=== PATIENT | male | born 1940 | race Caucasian/White ===

== ENCOUNTER → 2017-12-17 01:43 | Outpatient (CLI) | payer MEDICARE, MEDICAID, SELFPAY ==
--- NOTE | 2017-12-17 12:17 | DI.REPORT_ITS ---
SYMPTOM/DIAGNOSIS: R/U ABNL 10/29 CXR, ASSESS RESOLUTION LLL PNA, PLEURAL EFFUSION ? RESOLVED. J18.1 PA AND LATERAL CHEST: Comparison is made with 26 December 2017. The heart is enlarged, unchanged. The aorta is mildly tortuous. There are old right rib fractures. The previously noted left lower lobe infiltrate and left pleural effusion have resolved. No new abnormalities are seen. IMPRESSION: Interval resolution of left pleural effusion and left lower lobe infiltrate.
== END ==
PROVIDERS: PCP Nurse Practitioner; Visit Provider Nurse Practitioner Adult Health
DX: J18.1 Lobar pneumonia, unspecified organism (principal)
CPT/HCPCS: 71046

== ENCOUNTER 2018-01-01 03:22 | Outpatient (CLI) | payer MEDICARE, MEDICAID, SELFPAY | END 2018-01-01 03:42 | PROVIDERS: PCP Nurse Practitioner; Visit Provider Student in an Organized Health Care Education/Training Program | DX: I48.91 Unspecified atrial fibrillation (principal) ==

== ENCOUNTER 2018-03-19 02:08 | Outpatient (CLI) | payer MEDICARE, MEDICAID, SELFPAY | END 2018-03-19 02:28 | PROVIDERS: PCP Nurse Practitioner; Visit Provider Student in an Organized Health Care Education/Training Program | DX: I48.91 Unspecified atrial fibrillation (principal); J98.4 Other disorders of lung ==

== ENCOUNTER 2018-03-19 02:08 | Outpatient (CLI) | payer MEDICARE, MEDICAID, SELFPAY ==
--- NOTE | 2018-03-19 | PFT_ITS ---
PULMONARY FUNCTION TEST REPORT Patient identification - Moe Barahona DATE OF - 42 DATE OF SERVICE - 03/19/2018 REQUESTING PROVIDER Jose Soni M.D. INTERPRETATION OF STUDY Spirometry shows no evidence of obstructive airways disease. No bronchodilator response. LUNG VOLUMES - Lung volumes show mild restriction. DIFFUSION CAPACITY- Moderately reduced, which is normal when corrected to alveolar volume. AIRWAY RESISTANCE - Normal. IMPRESSION Mild restrictive lung disease associated with moderately severe diffusion defect. Clinical correlation recommended. Underlying interstitial lung disease based on the constellation of these findings is suspected. Lilliam Hinton M.D. RAMÍREZ/vinny T - 03/29/2019
[2018-03-19] MEDS: Inhaler, Assist Device 1 EACH MC (13:38)
[2018-03-19] MEDS: Albuterol HFA 18 GM 200 PUFF INH IH (13:38)
== END 2018-03-19 02:28 ==
PROVIDERS: PCP Nurse Practitioner; Visit Provider Student in an Organized Health Care Education/Training Program
DX: J98.4 Other disorders of lung (principal); I48.91 Unspecified atrial fibrillation
CPT/HCPCS: 94060; 94150; 94726; 94729; 93005; 93010

== ENCOUNTER → 2018-04-03 10:52 | Outpatient (BNVA) | payer MEDICARE, MEDICAID, SELFPAY | PROVIDERS: PCP Nurse Practitioner; Visit Provider Student in an Organized Health Care Education/Training Program | DX: R69 Illness, unspecified (principal) ==

== ENCOUNTER 2018-04-03 12:04 | Outpatient (CLI) | payer MEDICARE, MEDICAID, SELFPAY ==
[2018-04-03 12:35] LABS: Abs Immature Grans 0.01 k/cumm (0.0-0.09); Absolute Basophil Count 0.09 k/cumm (0.0-0.2); Absolute Eosinophil Count 0.16 k/cumm (0.0-0.7); Absolute Lymphocyte Count 0.83 k/cumm (1.2-3.4); Absolute Monocyte Count 0.74 k/cumm (0.11-0.7); Absolute Neutrophil Count 3.45 k/cumm (1.2-6.7); Basophils % 1.7; HCT 22.7 % (40.0-50.0); Immature Grans % 0.2; Lymphocytes % 15.7; Mean Corp. HGB Concentration 28.2 g/dL (32.0-36.0); Mean Corpuscular Hemoglobin 18.9 pg (27.0-33.0); Mean Platelet Volume 9.3 fL (8.0-11.0); Neutrophils % 65.4; RBC 3.39 m/cumm (4.50-6.00); RBC Distribution Width 16.3 % (11.8-14.1); White Blood Cell Count 5.28 k/cumm (4.4-10.8)
[2018-04-03 12:56] LABS: HGB 6.4 g/dL (13.5-17.5)
[2018-04-03 13:02] LABS: Diff Comment RBC Morph Reviewed; Platelet Count 277 x1000/uL (130-400)
[2018-04-03 13:03] LABS: Hypochromasia 3+; Microcytosis 3+; Poikilocytes 2+
[2018-04-03 13:27] LABS: ALT 41 U/L (12-78); AST 26 U/L (15-37); Albumin 3.6 g/dL (3.4-5.0); Alkaline Phosphatase 95 U/L (46-116); BUN 21 mg/dL (7-18); Bilirubin, Direct 0.06 mg/dL (0.00-0.20); Bilirubin, Total 0.3 mg/dL (0.2-1.0); CREATININE 1.68 mg/dL (0.70-1.30); Calcium 8.3 mg/dL (8.5-10.1); Chloride 102 mmol/L (98-107); Estimated GFR 39.92 (mL/min/1.73m2); Glucose 99 mg/dL (70-100); Potassium 4.1 mmol/L (3.5-5.1); Sodium 138 mmol/L (136-145); TSH (W/Ref FT4) 2.13 uIU/mL (0.358-3.74); Total Protein 6.8 g/dL (6.4-8.2)
[2018-04-03 13:44] LABS: Iron 8 ug/dL (50-175); Total Iron Binding Capacity 496 ug/dL (250-450); Transferrin Sat 2 % (20-55)
[2018-04-03 13:57] LABS: Ferritin 6 ng/mL (8-388)
== END 2018-04-03 12:24 ==
PROVIDERS: PCP Nurse Practitioner; Visit Provider Student in an Organized Health Care Education/Training Program
DX: I48.1 Persistent atrial fibrillation (principal); I42.9 Cardiomyopathy, unspecified; Z79.899 Other long term (current) drug therapy; R19.5 Other fecal abnormalities; D64.9 Anemia, unspecified; Z79.01 Long term (current) use of anticoagulants
CPT/HCPCS: 36415; 80048; 80076; 99214; 82728; 83540; 83550; 83735; 84443; 85025

== ENCOUNTER 2018-04-04 02:36 | Outpatient (RCR) | payer MEDICARE, MEDICAID, SELFPAY ==
[2018-04-04] VITALS (8 sets, daily range): BP systolic 127–153; BP diastolic 56–67; PULSE 61–64; RESP 14–18; TEMP 36.3–36.6; O2SAT 95–98
[2018-04-04] MEDS: Normal Saline Flush 10 ML SYR IVP (10:25)
== END 2018-04-29 23:59 | disposition home or self-care (01) ==
LOC: INF 02:36
PROVIDERS: PCP Nurse Practitioner; Visit Provider Nurse Practitioner
DX: D64.9 Anemia, unspecified (principal)
CPT/HCPCS: 36415; 36430; 86850; 86900; 86901; 86920; P9016

== ENCOUNTER 2018-04-05 13:00 | Outpatient (CLI) | payer MEDICARE, MEDICAID, SELFPAY | END 2018-04-05 13:20 | PROVIDERS: PCP Nurse Practitioner; Visit Provider Physical Therapy Assistant | DX: K92.2 Gastrointestinal hemorrhage, unspecified (principal); Z79.01 Long term (current) use of anticoagulants | CPT/HCPCS: 99213 ==

== ENCOUNTER → 2018-05-16 09:57 | Outpatient (BNVA) | payer MEDICARE, MEDICAID, SELFPAY | PROVIDERS: PCP Nurse Practitioner; Referring Provider Nurse Practitioner; Visit Provider Nurse Practitioner Gerontology | DX: R35.1 Nocturia (principal); R39.9 Unspecified symptoms and signs involving the genitourinary system | CPT/HCPCS: 51798; 99214 ==

== ENCOUNTER 2018-05-16 11:01 | Outpatient (CLI) | payer MEDICARE, MEDICAID, SELFPAY ==
[2018-05-17 10:38] LABS: PSA, Screening 0.3 ng/ml (0-6.5)
== END 2018-05-16 11:21 ==
PROVIDERS: PCP Nurse Practitioner; Visit Provider Nurse Practitioner Gerontology
DX: R39.9 Unspecified symptoms and signs involving the genitourinary system (principal)
CPT/HCPCS: 36415; 84153

== ENCOUNTER 2018-06-12 13:06 | Outpatient (CLI) | payer MEDICARE, MEDICAID, SELFPAY ==
[2018-06-12 13:39] LABS: HCT 26.4 % (40.0-50.0); HGB 7.6 g/dL (13.5-17.5); Mean Corp. HGB Concentration 28.8 g/dL (32.0-36.0); Mean Corpuscular Hemoglobin 20.1 pg (27.0-33.0); Mean Corpuscular Volume 69.8 fL (80-95); Mean Platelet Volume 9.2 fL (8.0-11.0); Platelet Count 245 x1000/uL (130-400); RBC 3.78 m/cumm (4.50-6.00); RBC Distribution Width 21.4 % (11.8-14.1); White Blood Cell Count 3.38 k/cumm (4.4-10.8)
[2018-06-12 13:55] LABS: Hemoglobin A1C 5.6 % (4.5-6.2)
[2018-06-12 14:31] LABS: ESR 24 MM/HR (1-20)
[2018-06-12 14:32] LABS: Iron 12 ug/dL (50-175); Total Iron Binding Capacity 422 ug/dL (250-450)
[2018-06-12 14:59] LABS: Anion Gap 9.1 mmol/L (3-11); BUN 12 mg/dL (7-18); CO2 28.9 mmol/L (21.0-32.0); CREATININE 1.24 mg/dL (0.70-1.30); Calcium 8.3 mg/dL (8.5-10.1); Chloride 103 mmol/L (98-107); Estimated GFR 56.68 (mL/min/1.73m2); Ferritin 9 ng/mL (8-388); Glucose 103 mg/dL (70-100); Potassium 3.8 mmol/L (3.5-5.1); Sodium 141 mmol/L (136-145); TSH (W/Ref FT4) 2.06 uIU/mL (0.358-3.74); Vitamin B12 374 pg/mL (193-986)
[2018-06-14 13:36] LABS: ANA Interpretation Positive (NEGAT); ANA Titer Pattern SEE COMMENTS
== END 2018-06-12 13:26 ==
PROVIDERS: PCP Nurse Practitioner; Visit Provider Nurse Practitioner
DX: D64.9 Anemia, unspecified (principal); E61.1 Iron deficiency; E11.9 Type 2 diabetes mellitus without complications; R20.0 Anesthesia of skin; I10 Essential (primary) hypertension
CPT/HCPCS: 36415; 80048; 85027; 85652; 82607; 82728; 83036; 83540; 83550; 84443; 86038

== ENCOUNTER → 2018-07-15 10:31 | Outpatient (BNVA) | payer MEDICARE, MEDICAID, SELFPAY | PROVIDERS: PCP Nurse Practitioner; Visit Provider Nurse Practitioner Gerontology | DX: N40.1 Benign prostatic hyperplasia with lower urinary tract symptoms (principal); R35.1 Nocturia | CPT/HCPCS: 51798; 99213 ==

== ENCOUNTER 2018-10-23 08:45 | Outpatient (CLI) | payer MEDICARE, MEDICAID, SELFPAY | END 2018-10-23 09:05 | PROVIDERS: PCP Nurse Practitioner; Visit Provider Student in an Organized Health Care Education/Training Program | DX: I48.1 Persistent atrial fibrillation (principal); I42.8 Other cardiomyopathies; I10 Essential (primary) hypertension; D50.9 Iron deficiency anemia, unspecified | CPT/HCPCS: 99215; 93005; 93010 ==

== ENCOUNTER 2018-11-19 12:02 | Outpatient (CLI) | payer MEDICARE, MEDICAID, SELFPAY ==
[2018-11-19 12:36] LABS: HCT 35.2 % (40.0-50.0); HGB 10.9 g/dL (13.5-17.5); Mean Corpuscular Volume 74.4 fL (80-95); Platelet Count 248 x1000/uL (130-400); RBC 4.73 m/cumm (4.50-6.00); RBC Distribution Width 24.3 % (11.8-14.1); White Blood Cell Count 4.18 k/cumm (4.4-10.8)
[2018-11-19 13:28] LABS: ALT 131 U/L (12-78); AST 79 U/L (15-37); Albumin 3.7 g/dL (3.4-5.0); Alkaline Phosphatase 107 U/L (46-116); Anion Gap 11.6 mmol/L (3-11); BUN 11 mg/dL (7-18); Bilirubin, Total 0.6 mg/dL (0.2-1.0); CO2 25.4 mmol/L (21.0-32.0); CREATININE 1.01 mg/dL (0.70-1.30); Calcium 8.5 mg/dL (8.5-10.1); Chloride 103 mmol/L (98-107); Glucose 93 mg/dL (70-100); Potassium 3.7 mmol/L (3.5-5.1); Sodium 140 mmol/L (136-145); Total Protein 6.5 g/dL (6.4-8.2)
== END 2018-11-19 12:22 ==
PROVIDERS: PCP Nurse Practitioner; Visit Provider Nurse Practitioner
DX: D64.9 Anemia, unspecified (principal); I48.91 Unspecified atrial fibrillation
CPT/HCPCS: 36415; 80053; 85027

== ENCOUNTER 2018-12-16 09:07 | Outpatient (CLI) | payer MEDICARE, MEDICAID, SELFPAY ==
[2018-12-16 09:43] LABS: Abs Immature Grans 0.02 k/cumm (0.0-0.09); Absolute Basophil Count 0.03 k/cumm (0.0-0.2); Absolute Eosinophil Count 0.12 k/cumm (0.0-0.7); Absolute Lymphocyte Count 0.77 k/cumm (1.2-3.4); Absolute Monocyte Count 0.48 k/cumm (0.11-0.7); Absolute Neutrophil Count 3.23 k/cumm (1.2-6.7); Basophils % 0.6; Eosinophils % 2.6; HCT 38.3 % (40.0-50.0); HGB 11.9 g/dL (13.5-17.5); Immature Grans % 0.4; Lymphocytes % 16.6; Mean Corp. HGB Concentration 31.1 g/dL (32.0-36.0); Mean Corpuscular Hemoglobin 24.8 pg (27.0-33.0); Mean Corpuscular Volume 79.8 fL (80-95); Mean Platelet Volume 9.3 fL (8.0-11.0); Monocytes % 10.3; Neutrophils % 69.5; Platelet Count 237 x1000/uL (130-400); RBC Distribution Width 24.2 % (11.8-14.1); White Blood Cell Count 4.65 k/cumm (4.4-10.8)
[2018-12-16 10:02] LABS: Diff Comment RBC Morph Reviewed
[2018-12-16 10:03] LABS: Anisocytosis 3+; Hypochromasia 1+; Macrocytosis 1+; Microcytosis 1+; Ovalocytes 2+
[2018-12-16 10:40] LABS: ALT 108 U/L (12-78); AST 76 U/L (15-37); Albumin 3.6 g/dL (3.4-5.0); Alkaline Phosphatase 103 U/L (46-116); Anion Gap 12.3 mmol/L (3-11); BUN 14 mg/dL (7-18); Bilirubin, Total 0.4 mg/dL (0.2-1.0); CO2 24.7 mmol/L (21.0-32.0); CREATININE 1.31 mg/dL (0.70-1.30); Calcium 8.5 mg/dL (8.5-10.1); Chloride 105 mmol/L (98-107); Estimated GFR 53.06 (mL/min/1.73m2); Glucose 95 mg/dL (70-100); Sodium 142 mmol/L (136-145); Total Protein 6.7 g/dL (6.4-8.2)
[2018-12-16 10:41] LABS: ALT 105 U/L (12-78); AST 76 U/L (15-37); Albumin 3.6 g/dL (3.4-5.0); Alkaline Phosphatase 106 U/L (46-116); Bilirubin, Direct 0.13 mg/dL (0.00-0.20); Bilirubin, Total 0.4 mg/dL (0.2-1.0); Total Protein 6.6 g/dL (6.4-8.2)
[2018-12-17 11:18] LABS: Hepatitis A Antibody IgM Negative (NEGAT); Hepatitis B Core Antibody Positive (NEGAT); Hepatitis B surface Ag Negative (NEGAT); Hepatitis C Ab w Rflx HCV PCR Negative (NEGAT)
[2018-12-19 08:18] LABS: HBc IgM Ab, S Negative
== END 2018-12-16 09:27 ==
PROVIDERS: PCP Nurse Practitioner; Visit Provider Internal Medicine Cardiovascular Disease
DX: I48.0 Paroxysmal atrial fibrillation (principal); R94.5 Abnormal results of liver function studies
CPT/HCPCS: 36415; 80053; 80076; 86704; 86709; 86803; 87340; 85025; 86705

== ENCOUNTER 2019-01-09 00:57 | Outpatient (CLI) | payer MEDICARE, MEDICAID, SELFPAY ==
--- NOTE | 2019-01-09 07:15 | DI.US_ITS ---
SYMPTOM/DIAGNOSIS: ELEVATED LFT'S R94.5 ABDOMINAL ULTRASOUND: 01/09 The visualized liver parenchyma is normal in appearance with an incidental 21 mm in diameter simple cyst of the left lobe. There is no evidence of cholelithiasis or biliary dilatation. The pancreas is not well visualized but grossly unremarkable. Kidneys are grossly normal in size and shape. There is question of right renal cortical atrophy. Spleen is unremarkable in appearance. Abdominal aorta is at the upper limits of normal in diameter at 2.7 cm proximally. CONCLUSION: No evidence of cholelithiasis. Question right renal cortical atrophy.
== END 2019-01-09 01:17 ==
PROVIDERS: PCP Nurse Practitioner; Visit Provider Nurse Practitioner
DX: R94.5 Abnormal results of liver function studies (principal); K76.89 Other specified diseases of liver
CPT/HCPCS: 76700

== ENCOUNTER 2019-04-25 12:12 | Emergency (ER) | payer MEDICARE, MEDICAID, SELFPAY ==
[2019-04-25 12:36] VITALS: BP 164/78; PULSE 70; RESP 16; TEMP 36.7; O2SAT 96
--- NOTE | 2019-04-25 12:57 | ED.GENADUL_ITS ---
Discharge Plan Disposition Patient Disposition: HOME Condition: Improving Discharge Details Chief Complaint: GenMedical Clinical Impression: Fall at home, Contusion of face, Closed head injury, Chest wall contusion Primary Care Provider: Stefanie Hoffman ED Provider: Gifty Pelaez Home Meds and New Rx's Prescriptions: New tramadol 50 mg tablet 50 mg PO Q6H PRN (Reason: pain) Qty: 10 RF: 0 Continued omeprazole 20 mg capsule,delayed release(DR/EC) 20 mg PO BID Qty: 120 RF: 6 amiodarone 200 mg tablet 200 mg PO DAILY Qty: 90 RF: 3 Eliquis 5 mg tablet 5 mg PO DAILY RF: 0 Discharge Instructions Instructions: Head Injury (ED), Contusion in Adults (ED), Rib Contusion (ED) Additional Instructions: Use the incentive spirometer several times an hour to help with taking deep breaths to prevent the development of pneumonia. Take Tylenol as needed directed for pain. Take the tramadol for pain not relieved with Tylenol. You can also purchase [id number] lidocaine patches that you can apply to the area of pain to use as needed and directed. Follow-up with your primary care doctor within the next week for reevaluation. Return to the emergency department if you develop any worsening or new concerning symptoms. Discharge Data Discharge Date/Time-TO BE ENTERED AT DEPARTURE: 04/25/19 16:34 Discharge Physician: Gifty Pelaez Medical Decision Making 78-year-old male presents for left facial pain and left chest pain worse with movement and deep breath after mechanical fall onto frozen dirt. Denies LOC or vomiting. Patient has an area of ecchymosis around edge of left periorbital region but no open wounds. He has tenderness to palpation of his left anterior chest but without crepitus, open wounds, or evidence of trauma. Lungs clear bilaterally. No other evidence of head trauma. No spinal tenderness. Abdomen soft and nontender. Moving all extremities. Patient referred for CT head, cervical spine and facial bones as well as left ribs and PA chest x-ray which were negative. Patient was given Tylenol and had Lidoderm patch placed and admitted to relief of pain and was requesting to go home. He was given an incentive spirometer. He was advised to take Tylenol as needed and directed for pain. Given prescription for tramadol to take as needed. Advised to follow up with the primary care doctor for re-evaluation. Usual and customary return precautions given prior to discharge. Medical Records Medical records reviewed: Yes I reviewed the patient's medical records. Imaging Data Radiologic Study: Radiologist's impression: CT HEAD CERV SPINE FACIAL WO CLINICAL HISTORY: L periorbital contusion, r/o fracture TECHNIQUE: COMPARISON: No exams were available for comparison FINDINGS: Noncontrast cranial CT was performed. There is moderate generalized cerebral atrophy and there are areas of patchy decreased attenuation periventricular white matter bilaterally consistent with microvascular ischemic changes. No evidence of acute intracranial hemorrhage mass effect or midline shift. The orbital and temporal bone structures appear intact. Multi slice imaging facial bones was performed. Paranasal sinuses are well aerated. Orbital structures are normal. No facial fracture seen. Old healed nasal fracture noted. Multi slice CT of the cervical spine was performed. Images obtained through the lung apices are unremarkable. Visualized tracheolaryngeal structures appear normal. There are marked degenerative changes of the cervical spine. There is no evidence of acute fracture or dislocation. IMPRESSION: No evidence of acute intracranial injury. No evidence of acute cervical spine injury. No evidence of acute facial fracture. XR RIBS LT W PA LAT CHEST CLINICAL HISTORY: Pain L anterior ribs s/p fall, r/o fracture TECHNIQUE: COMPARISON: CHEST 2 VIEWS PA,LAT from 12/17/2017 FINDINGS: PA and lateral views of the chest and 2 additional views of the left ribs were obtained. There appear to be old healed right rib fractures. No acute fracture identified either in left or right ribs. Cardiac size is at the upper limits of normal. Lungs are clear. There is pleural blunting posteriorly which could represent scarring or small pleural effusions. IMPRESSION: Question small bilateral pleural effusions. No gross rib fracture identified by plain film criteria. Lab Data Lab results reviewed: Yes I reviewed the patient's lab results. HPI General Mode of arrival: ambulatory . Date/Time Provider Initiated Documentation: 04/25/19 12:54 . Limitations to Documentation: no limitations . Information obtained by: patient . History of Present Illness 78 year old M presents to the emergency department with the chief complaint of Fall with facial and chest pain, and is localized to the face and back. Patient reports no radiation. Patient started experiencing this day(s) (2) and it has been constant. No relieving factors improve symptom(s), Other factors that worsen symptoms (Chest pain worse with deep breath, movement or palpation) . Patient notes denies confusion, fever/chills, headaches, loss of appetite, rash, seizure, shortness of breath, syncope and weakness. Patient did receive the following treatments prior to arrival, none Related Data Home Medications Medication Instructions Recorded Confirmed omeprazole 20 mg capsule,delayed 20 mg PO BID #120 cap 06/12/18 04/25/19 release amiodarone 200 mg tablet 200 mg PO DAILY #90 tab-cap 04/15/19 04/25/19 Eliquis 5 mg PO DAILY 04/25/19 04/25/19 tramadol 50 mg PO Q6H PRN #10 tab 04/25/19 Previous Rx's Medication Instructions Recorded omeprazole 20 mg capsule,delayed 20 mg PO BID #120 cap 06/12/18 release amiodarone 200 mg tablet 200 mg PO DAILY #90 tab-cap 04/15/19 tramadol 50 mg PO Q6H PRN #10 tab 04/25/19 Allergies Allergy/AdvReac Type Severity Reaction Status Date / Time No Known Drug Allergies Allergy Verified 04/25/19 13:05 General Stated Complaint: GenMedical RACHELLE: 3 Review of Systems All systems reviewed & are unremarkable except as noted in HPI and below Constitutional Constitutional: Reports as per HPI, Denies chills and Denies fever(s) Eyes Eyes: Denies blurry vision ENT Ears, Nose, Mouth, and Throat: Denies dizziness, Denies sore throat and Denies throat swelling Cardiovascular Cardiovascular: Denies chest pain and Denies dyspnea Respiratory Respiratory: Denies cough and Denies dyspnea Gastrointestinal Gastrointestinal: Denies abdominal pain, Denies diarrhea and Denies vomiting Genitourinary Genitourinary: Denies hematuria and Denies dysuria Musculoskeletal Musculoskeletal: Denies back pain and Denies numbness Integumentary/Breasts Skin/Breast: Denies lesions and Denies rash Neurologic Neurologic: Denies dizziness, Denies focal weakness and Denies numbness Allergic/Immunologic Allergic/Immunologic: Denies throat swelling PENDING SALE TO [facility] Medical History Atrial fibrillation Cardiomyopathy Chronic anticoagulation eliquis Helicobacter pylori gastritis Helicobacter pylori gastritis (Inactive 01/31/15) History of alcohol abuse Noncompliance with medication regimen (Inactive 05/19/15) ALBERTO (obstructive sleep apnea) Personal history of tobacco use (Inactive 05/20/15) none since Jan 2015 Daily cigars Poor compliance with CPAP treatment (Acute) Poor dentition Poor dentition (Inactive 12/30/15) Tobacco abuse Surgical History Colonoscopy - IV Sedation (02/08/15) w/ BX Dr. Lee sigmoid diverticulosis, Final Path Diagnosis: Inflammatory polyp Colonoscopy - MAC (09/12/17) EGD - IV Sedation (01/31/15) Dr Lee Final Pathologic Diagnosis: Gastric Antrum stomach biopsy -Gastric antral mucosa with H. Pylori gastritis and focal intestianl metaplasia -H. Pylori seen on HE stain Gastric body stomach biopsy -Gastric body mucosa with H. Pylori gastritis -H. Pylori seen on HE stain Addendum to above path diagnosis: Biopsy Esophagus - Gastric fundic type mucosa with active erosive gastritis. EGD - MAC (09/12/17) 05/27/18 Colonoscopy- multiple diverticula, internal hemorrhoids, 2-sessile polyps in ascending colon3-5mm size, diverticulosis in the entire examined colon H/O endoscopy (Acute) History of endoscopy (Acute 05/28/18) 05/27/18 Upper GI-medium sized hiatal hernia present at 35-40cm, normal esophagus, Irregular Z-line at 35 cm from incisors, normal stomach and duodenum 05/28/18-video capsule [id number] duodenum,jejunum,and ileum. hx previous rib fxs Repair of inguinal hernia right; years ago rib fx (11/22/08) small bowel enteroscopy (03/22/15) [facility] Dr. Champagne Family History Mother No problems noted. Father Personal history of malignant neoplasm Sister Parkinson disease Sister No problems noted. Sister No problems noted. Brother Personal history of malignant neoplasm Brother No problems noted. Social History Smoking/Tobacco Use Status: Former Tobacco Use Alcohol Intake: never Drug use: Never Substance use type: does not use Do you feel safe at home: Yes Do you feel safe in your relationship?: Yes Exam Const General: cooperative and healthy appearing Orientation: alert and awake [facility] Head: normal to inspection Ears: hearing grossly normal bilaterally, external ears normal and TM's normal bilaterally General nose exam: external nose normal Face and sinus: normal facial exam Face images: 1. Patchy ecchymosis noted around edge of periorbital region. No edema, erythema, open wounds. Mouth: oral mucosae normal Teeth and gingiva: dentition normal Throat: posterior oropharynx normal Eyes General: appearance normal, both eyes and all related structures Eyelids: eyelids normal Pupils: PERRL EOM: EOM intact bilaterally Neck Neck: normal visual inspection Lymphatic: no lymphadenopathy noted Chest Chest: normal inspection of the chest Chest/axillae images: 1. Tenderness to palpation of left anterior chest. No crepitus, open wounds, edema, ecchymosis or erythema. Resp Effort & Inspection: normal respiratory effort and able to speak in complete sentences Auscultation: clear to auscultation bilaterally Cardio Rate: regular rate Rhythm: regular rhythm GI Inspection: normal to inspection Palpation: soft, not firm, no guarding, no hepatosplenomegaly, no masses and nontender Auscultation: normal bowel sounds Back/Spine/Pelvis Cervical Spine: No cervical spinal tenderness Thoracic/Lumbar Spine: No thoracic spinal tenderness and No lumbar spinal tenderness Pelvis: no pain with anterior-posterior compression Skin General skin exam: no rashes or lesions noted Neuro General: alert, awake and oriented x3 Cranial Nerves: CN's II-XI intact bilaterally Cognition: normal cognition Speech: speech normal Gait: normal gait Motor: muscle tone normal throughout and strength 5/5 throughout Sensory Exam: no sensory deficits noted Extrem General: normal to inspection, full ROM and normal capillary refill Other: Moving all extremities without evidence of trauma, injury or pain. Psych Appearance: grossly normal Mental Status: mental status grossly normal Speech and Movement: speech and movement normal Affect: normal affect Thought Process: normal Course Vital Signs Vital signs: Vital Signs Temperature 98.1 F 04/25/19 12:36 Pulse 70 04/25/19 12:36 Respiratory Rate 16 04/25/19 12:36 Blood Pressure 164/78 H 04/25/19 12:36 Pulse Oximetry 96 04/25/19 12:36 Temperature 98.1 F 04/25/19 12:36 Temperature Source Skin 04/25/19 12:36 Pulse 70 04/25/19 12:36 Respiratory Rate 16 04/25/19 12:36 Blood Pressure 164/78 H 04/25/19 12:36 Blood Pressure Position Sitting 04/25/19 12:36 Pulse Oximetry 96 04/25/19 12:36 Oxygen Delivery Method Room Air 04/25/19 12:36 Oxygen Flow Rate 0 04/25/19 12:36 Pain Level 0 04/25/19 12:36 Comment 04/25/19 12:36
[2019-04-25 13:28] LABS: Abs Immature Grans 0.02 k/cumm (0.0-0.09); Absolute Basophil Count 0.04 k/cumm (0.0-0.2); Absolute Eosinophil Count 0.13 k/cumm (0.0-0.7); Absolute Lymphocyte Count 1.01 k/cumm (1.2-3.4); Absolute Monocyte Count 0.61 k/cumm (0.11-0.7); Basophils % 0.8; Eosinophils % 2.4; HCT 31.4 % (40.0-50.0); HGB 9.6 g/dL (13.5-17.5); Immature Grans % 0.4; Mean Corp. HGB Concentration 30.6 g/dL (32.0-36.0); Mean Corpuscular Hemoglobin 23.9 pg (27.0-33.0); Mean Corpuscular Volume 78.3 fL (80-95); Monocytes % 11.5; Neutrophils % 65.9; Platelet Count 229 x1000/uL (130-400); RBC 4.01 m/cumm (4.50-6.00); RBC Distribution Width 14.9 % (11.8-14.1); White Blood Cell Count 5.31 k/cumm (4.4-10.8)
[2019-04-25 13:41] LABS: Prothrombin Time 10.2 sec (9.3-11.0)
[2019-04-25 13:42] LABS: ALT 68 U/L (16-63); AST 60 U/L (15-37); Albumin 3.6 g/dL (3.4-5.0); Alkaline Phosphatase 99 U/L (46-116); BUN 11 mg/dL (7-18); Bilirubin, Total 0.5 mg/dL (0.2-1.0); CREATININE 1.06 mg/dL (0.70-1.30); Calcium 8.5 mg/dL (8.5-10.1); Chloride 101 mmol/L (98-107); Glucose 93 mg/dL (74-106); Potassium 4.1 mmol/L (3.5-5.1); Sodium 140 mmol/L (136-145)
[2019-04-25 13:44] LABS: Troponin I < 0.05 ng/Ml (<0.06)
[2019-04-25] MEDS: Acetaminophen 500 MG TAB 1000 MG PO (13:50)
[2019-04-25] MEDS: Lidocaine 5% Patch 1 PATCH TP (13:50)
--- NOTE | 2019-04-25 14:25 | DI.CT_ITS ---
EXAM: CT HEAD CERV SPINE FACIAL WO CLINICAL HISTORY: L periorbital contusion, r/o fracture TECHNIQUE: COMPARISON: No exams were available for comparison FINDINGS: Noncontrast cranial CT was performed. There is moderate generalized cerebral atrophy and there are a reas of patchy decreased attenuation periventricular white matter bilaterally consistent with microva scular ischemic changes. No evidence of acute intracranial hemorrhage mass effect or midline shift. The orbital and temporal bone structures appear intact. Multi slice imaging facial bones was performed. Paranasal sinuses are well aerated. Orbital structu res are normal. No facial fracture seen. Old healed nasal fracture noted. Multi slice CT of the cervical spine was performed. Images obtained through the lung apices are unre markable. Visualized tracheolaryngeal structures appear normal. There are marked degenerative ramon es of the cervical spine. There is no evidence of acute fracture or dislocation. IMPRESSION: No evidence of acute intracranial injury. No evidence of acute cervical spine injury. No evidence of acute facial fracture.
--- NOTE | 2019-04-25 14:29 | DI.RAD_ITS ---
EXAM: XR RIBS LT W PA LAT CHEST CLINICAL HISTORY: Pain L anterior ribs s/p fall, r/o fracture TECHNIQUE: COMPARISON: CHEST 2 VIEWS PA,LAT from 12/17/2017 FINDINGS: PA and lateral views of the chest and 2 additional views of the left ribs were obtained. There appea r to be old healed right rib fractures. No acute fracture identified either in left or right ribs. Cardiac size is at the upper limits of normal. Lungs are clear. There is pleural blunting posterior ly which could represent scarring or small pleural effusions. IMPRESSION: Question small bilateral pleural effusions. No gross rib fracture identified by plain film criteria.
[2019-04-25 14:53] VITALS: BP 180/82; PULSE 60; O2SAT 96
[2019-04-25 15:21] VITALS: BP 167/72; PULSE 60; RESP 18; TEMP 36.2; O2SAT 98
== END 2019-04-25 16:34 | disposition home or self-care (01) ==
PROVIDERS: Emergency Provider Physician Assistant; PCP Nurse Practitioner
DX: S09.90XA Unspecified injury of head, initial encounter (principal); S00.83XA Contusion of other part of head, initial encounter; S20.212A Contusion of left front wall of thorax, initial encounter; W00.0XXA Fall on same level due to ice and snow, initial encounter; Z79.01 Long term (current) use of anticoagulants; I48.91 Unspecified atrial fibrillation
CPT/HCPCS: 36415; 80053; 93005; 99285; 70450; 70486; 71046; 71100; 72125; 83735; 84484; 85025; 85610; 85730; 93010

== ENCOUNTER → 2019-05-09 10:45 | Outpatient (BNVA) | payer MEDICARE, MEDICAID, SELFPAY | PROVIDERS: PCP Nurse Practitioner; Referring Provider Nurse Practitioner; Visit Provider Internal Medicine Cardiovascular Disease | DX: I48.91 Unspecified atrial fibrillation (principal); Z79.01 Long term (current) use of anticoagulants; I42.9 Cardiomyopathy, unspecified; I10 Essential (primary) hypertension | CPT/HCPCS: 99204; 99215 ==

== ENCOUNTER → 2019-05-12 10:40 | Outpatient (BNVA) | payer MEDICARE, MEDICAID, SELFPAY | PROVIDERS: PCP Nurse Practitioner; Referring Provider Nurse Practitioner; Visit Provider Nurse Practitioner Gerontology | DX: N40.1 Benign prostatic hyperplasia with lower urinary tract symptoms (principal); N13.8 Other obstructive and reflux uropathy | CPT/HCPCS: 99213 ==

== ENCOUNTER 2019-05-22 08:15 | Outpatient (CLI) | payer MEDICARE, MEDICAID, SELFPAY ==
[2019-05-22 09:49] LABS: BUN 12 mg/dL (7-18); CREATININE 1.22 mg/dL (0.70-1.30); Calcium 8.5 mg/dL (8.5-10.1); Chloride 103 mmol/L (98-107); Glucose 92 mg/dL (74-106); Potassium 4.3 mmol/L (3.5-5.1); Sodium 140 mmol/L (136-145); TSH 2.42 uIU/mL (0.36-3.74)
== END 2019-05-22 08:35 ==
PROVIDERS: PCP Nurse Practitioner; Visit Provider Internal Medicine Cardiovascular Disease
DX: I48.91 Unspecified atrial fibrillation (principal); Z79.01 Long term (current) use of anticoagulants; I10 Essential (primary) hypertension
CPT/HCPCS: 36415; 80048; 84443

== ENCOUNTER 2019-07-03 15:00 | Outpatient (CLI) | payer MEDICARE, SELFPAY | END 2019-07-03 15:20 | PROVIDERS: PCP Nurse Practitioner; Visit Provider Nurse Practitioner | DX: R69 Illness, unspecified (principal) | CPT/HCPCS: 36415; 86850; 86900; 86901; 86920; 85014; 85018 ==

== ENCOUNTER 2019-07-11 04:36 | Outpatient (RCR) | payer MEDICARE, MEDICAID, SELFPAY ==
[2019-07-03 15:28] LABS: HCT 25.7 % (40.0-50.0); HGB 7.3 g/dL (13.5-17.5)
[2019-07-04] VITALS (7 sets, daily range): BP systolic 133–162; BP diastolic 65–74; PULSE 60–68; RESP 18–19; TEMP 36.4–36.7; O2SAT 96–99
[2019-07-10 14:46] LABS: HGB 8.2 g/dL (13.5-17.5)
[2019-07-11 09:22] VITALS: BP 125/67; PULSE 60; RESP 20; TEMP 36.7; O2SAT 97
[2019-07-11 09:55] VITALS: BP 134/71; BP 147/68; PULSE 59; PULSE 60; RESP 20; TEMP 36.4; TEMP 36.9; O2SAT 96
[2019-07-11 10:40] VITALS: BP 150/72; PULSE 52; RESP 20; TEMP 36.5; O2SAT 97
[2019-07-11 11:10] VITALS: BP 168/81; PULSE 61; RESP 20; TEMP 36.9; O2SAT 98
[2019-07-11] MEDS: Normal Saline Flush 10 ML SYR IVP (11:30)
[2019-07-11 11:40] VITALS: BP 172/85; PULSE 60; RESP 20; TEMP 37.9; O2SAT 98
[2019-07-11 11:58] VITALS: BP 177/81; PULSE 60; RESP 20; TEMP 37.9; O2SAT 98
== END 2019-07-29 23:59 | disposition home or self-care (01) ==
LOC: INF 04:36
PROVIDERS: PCP Nurse Practitioner; Visit Provider Nurse Practitioner
DX: D64.9 Anemia, unspecified (principal)
CPT/HCPCS: 36415; 36430; 86850; 86900; 86901; 86920; 85014; 85018; P9016

== ENCOUNTER 2019-08-20 01:13 | Outpatient (RCR) | payer MEDICARE, MEDICAID, SELFPAY ==
[2019-07-30] MEDS: IRON SUCROSE COMPLEX 200 MG in Normal Saline 100 ML 440 MG IVPB (13:02)
[2019-07-30] MEDS: Normal Saline Flush 10 ML SYR IVP (13:03)
[2019-07-30 13:05] LABS: Absolute Basophil Count 0.05 k/cumm (0.0-0.2); Absolute Eosinophil Count 0.12 k/cumm (0.0-0.7); Absolute Lymphocyte Count 1.06 k/cumm (1.2-3.4); Absolute Monocyte Count 0.67 k/cumm (0.11-0.7); Absolute Neutrophil Count 3.33 k/cumm (1.2-6.7); Eosinophils % 2.3; HCT 29.9 % (40.0-50.0); HGB 8.8 g/dL (13.5-17.5); Lymphocytes % 20.3; Mean Corp. HGB Concentration 29.4 g/dL (32.0-36.0); Mean Corpuscular Hemoglobin 21.9 pg (27.0-33.0); Mean Corpuscular Volume 74.4 fL (80-95); Mean Platelet Volume 9.8 fL (8.0-11.0); Monocytes % 12.8; Neutrophils % 63.6; Platelet Count 294 x1000/uL (130-400); RBC 4.02 m/cumm (4.50-6.00); RBC Distribution Width 20.3 % (11.8-14.1); White Blood Cell Count 5.23 k/cumm (4.4-10.8)
[2019-08-06] MEDS: Normal Saline Flush 10 ML SYR IVP (13:00)
[2019-08-06] MEDS: IRON SUCROSE COMPLEX 200 MG in Normal Saline 100 ML 400 MG IVPB (13:00)
[2019-08-06 13:12] LABS: Abs Immature Grans 0.01 k/cumm (0.0-0.09); Absolute Basophil Count 0.03 k/cumm (0.0-0.2); Absolute Eosinophil Count 0.13 k/cumm (0.0-0.7); Absolute Monocyte Count 0.49 k/cumm (0.11-0.7); Basophils % 0.6; Eosinophils % 2.5; HCT 32.2 % (40.0-50.0); HGB 9.9 g/dL (13.5-17.5); Immature Grans % 0.2 %; Lymphocytes % 17.1; Mean Corp. HGB Concentration 30.7 g/dL (32.0-36.0); Mean Corpuscular Hemoglobin 23.2 pg (27.0-33.0); Mean Corpuscular Volume 75.6 fL (80-95); Mean Platelet Volume 9.3 fL (8.0-11.0); Monocytes % 9.3; Neutrophils % 70.3; Platelet Count 286 x1000/uL (130-400); RBC 4.26 m/cumm (4.50-6.00); RBC Distribution Width 22.4 % (11.8-14.1); White Blood Cell Count 5.26 k/cumm (4.4-10.8)
[2019-08-06 13:34] LABS: Diff Comment RBC Morph Reviewed
[2019-08-06 13:35] LABS: Anisocytosis 2+; Hypochromasia 1+; Microcytosis 2+; Polychromasia Present
[2019-08-13] MEDS: IRON SUCROSE COMPLEX 200 MG in Normal Saline 100 ML 440 MG IVPB (14:07)
[2019-08-13] MEDS: Normal Saline Flush 10 ML SYR IVP (14:08)
[2019-08-13 14:22] LABS: Abs Immature Grans 0.02 k/cumm (0.0-0.09); Absolute Basophil Count 0.03 k/cumm (0.0-0.2); Absolute Monocyte Count 0.57 k/cumm (0.11-0.7); Absolute Neutrophil Count 3.84 k/cumm (1.2-6.7); Basophils % 0.6; Eosinophils % 1.9; HCT 32.4 % (40.0-50.0); HGB 9.9 g/dL (13.5-17.5); Immature Grans % 0.4 %; Lymphocytes % 14.9; Mean Corp. HGB Concentration 30.6 g/dL (32.0-36.0); Mean Corpuscular Hemoglobin 23.6 pg (27.0-33.0); Mean Corpuscular Volume 77.1 fL (80-95); Mean Platelet Volume 9.5 fL (8.0-11.0); Monocytes % 10.6; Neutrophils % 71.6; Platelet Count 237 x1000/uL (130-400); RBC Distribution Width 23.3 % (11.8-14.1); White Blood Cell Count 5.36 k/cumm (4.4-10.8)
[2019-08-13 14:40] LABS: Anisocytosis 3+; Diff Comment RBC Morph Reviewed; Hypochromasia 3+; Microcytosis 3+; Poikilocytes 1+; Polychromasia Present
[2019-08-20] MEDS: IRON SUCROSE COMPLEX 200 MG in Normal Saline 100 ML 440 MG IVPB (13:02)
[2019-08-20] MEDS: Normal Saline Flush 10 ML SYR IVP (13:10)
[2019-08-20 13:20] LABS: Abs Immature Grans 0.01 k/cumm (0.0-0.09); Absolute Basophil Count 0.03 k/cumm (0.0-0.2); Absolute Eosinophil Count 0.12 k/cumm (0.0-0.7); Absolute Lymphocyte Count 0.72 k/cumm (1.2-3.4); Absolute Monocyte Count 0.52 k/cumm (0.11-0.7); Absolute Neutrophil Count 2.87 k/cumm (1.2-6.7); Basophils % 0.7; Eosinophils % 2.8; HCT 32.6 % (40.0-50.0); HGB 10.1 g/dL (13.5-17.5); Immature Grans % 0.2 %; Lymphocytes % 16.9; Mean Corpuscular Volume 77.4 fL (80-95); Mean Platelet Volume 8.9 fL (8.0-11.0); Monocytes % 12.2; Neutrophils % 67.2; Platelet Count 240 x1000/uL (130-400); RBC 4.21 m/cumm (4.50-6.00); RBC Distribution Width 23.1 % (11.8-14.1); White Blood Cell Count 4.27 k/cumm (4.4-10.8)
[2019-08-20 14:03] LABS: Anisocytosis 2+; Diff Comment Agrees w/ Instrument; Hypochromasia 1+
[2019-08-20 14:04] LABS: Microcytosis 1+
== END 2019-08-28 23:59 | disposition home or self-care (01) ==
LOC: INF 01:13
PROVIDERS: PCP Nurse Practitioner; Visit Provider Internal Medicine
DX: D50.9 Iron deficiency anemia, unspecified (principal)
CPT/HCPCS: 36415; 86850; 86900; 86901; 96365; 85025; J1756

== ENCOUNTER 2019-09-17 00:51 | Outpatient (RCR) | payer MEDICARE, MEDICAID, SELFPAY ==
[2019-09-17 12:51] LABS: Abs Immature Grans 0.01 k/cumm (0.0-0.09); Absolute Basophil Count 0.03 k/cumm (0.0-0.2); Absolute Eosinophil Count 0.12 k/cumm (0.0-0.7); Absolute Lymphocyte Count 0.85 k/cumm (1.2-3.4); Absolute Monocyte Count 0.59 k/cumm (0.11-0.7); Absolute Neutrophil Count 3.53 k/cumm (1.2-6.7); Basophils % 0.6; Eosinophils % 2.3; HCT 36.1 % (40.0-50.0); HGB 11.7 g/dL (13.5-17.5); Immature Grans % 0.2 %; Lymphocytes % 16.6; Mean Corp. HGB Concentration 32.4 g/dL (32.0-36.0); Mean Corpuscular Hemoglobin 25.8 pg (27.0-33.0); Mean Corpuscular Volume 79.5 fL (80-95); Mean Platelet Volume 9.5 fL (8.0-11.0); Monocytes % 11.5; Neutrophils % 68.8; Platelet Count 216 x1000/uL (130-400); RBC 4.54 m/cumm (4.50-6.00); RBC Distribution Width 20.5 % (11.8-14.1); White Blood Cell Count 5.13 k/cumm (4.4-10.8)
[2019-09-17 13:14] LABS: Ferritin 48 ng/mL (26-388)
== END 2019-09-28 23:59 | disposition home or self-care (01) ==
LOC: INF 00:51
PROVIDERS: PCP Nurse Practitioner; Visit Provider Internal Medicine
DX: D50.9 Iron deficiency anemia, unspecified (principal)
CPT/HCPCS: 36415; 86900; 86901; 82728; 85025

== ENCOUNTER → 2019-10-30 09:42 | Outpatient (BNVA) | payer MEDICARE, MEDICAID, SELFPAY | PROVIDERS: PCP Nurse Practitioner; Referring Provider Nurse Practitioner; Visit Provider Nurse Practitioner Gerontology | DX: N40.1 Benign prostatic hyperplasia with lower urinary tract symptoms (principal); R35.1 Nocturia | CPT/HCPCS: 99213 ==

== ENCOUNTER → 2019-10-30 09:45 | Outpatient (BNVA) | payer MEDICARE, MEDICAID, SELFPAY | PROVIDERS: PCP Nurse Practitioner; Referring Provider Nurse Practitioner; Visit Provider Internal Medicine Cardiovascular Disease | DX: I42.8 Other cardiomyopathies (principal); I48.91 Unspecified atrial fibrillation; Z91.89 Other specified personal risk factors, not elsewhere classified; Z79.01 Long term (current) use of anticoagulants; I10 Essential (primary) hypertension; R60.0 Localized edema; Z79.899 Other long term (current) drug therapy | CPT/HCPCS: 99213; 99214 ==

== ENCOUNTER 2019-11-26 01:43 | Outpatient (CLI) | payer MEDICARE, MEDICAID, SELFPAY ==
--- NOTE | 2019-11-26 07:54 | DI.US_ITS ---
APPROVED REPORT EXAM: Comprehensive 2D, Doppler, and color-flow Echocardiogram Patient Location: Out-Patient Flooring Installer: Soniya Avalos RDCS (AE) Indications: Atrial fibrillation, Edema Other Information Study Quality: Adequate Conclusion Normal left ventricular wall thickness and chamber size. Estimated ejection fraction is 55%. There are no segmental wall motion abnormalities Normal right ventricular size and systolic function Both atria are normal in size Mildly sclerotic trileaflet aortic valve with mild regurgitation Mildly thickened mitral leaflets. Mild mitral regurgitation Structurally normal tricuspid valve. Trace tricuspid regurgitation Pulmonic valve is structurally normal without regurgitation Wall motion Left Ventricle The left ventricle is normal size. The left ventricular systolic function is normal. The left ventric ular ejection fraction is within the normal range. There is normal left ventricular wall thickness. T here is normal LV segmental wall motion. There is no ventricular septal defect visualized. LVEF is 55 %. Right Ventricle The right ventricle is normal size. The right ventricular systolic function is normal. Atria The left atrium size is normal. The right atrium size is normal. Aortic Valve Aortic valve is thickened but has adequate excursion. Aortic valve is trileaflet. There is no aortic valvular stenosis. Mild aortic regurgitation. Mitral Valve Mildly thickened mitral leaflets No evidence of mitral valve stenosis. Mild mitral regurgitation. Tricuspid Valve The tricuspid valve is normal in structure. There is no tricuspid valve stenosis. Trace tricuspid reg urgitation. Pulmonic Valve The pulmonary valve is normal in structure. There is no pulmonic valvular stenosis. There is no pulmo steph valvular regurgitation. Great Vessels The aortic root is normal in size. The ascending aorta is normal in size. IVC is normal in size and c ollapses >50% with inspiration. Pericardium There is no pericardial effusion. 2D Dimensions IVSD d PLAX 1.02 cm M: 0.6-1.2 LV Vol A2C d MOD 130.1 mL LVPW d PLAX 1.00 cm M: 0.6 - 1.2 LV Vol A4C d MOD 130.2 mL LVID d PLAX 5.35 cm M: 4.2 - 5.8 LA Area A4C s MOD 16.18 cm2 LVDs 4.10 cm M: 2.5 - 4.0 LA Area A2C s MOD 26.60 cm2 Ao Root d 3.26 cm M: 3.1 - 3.7 LV EF A4C MOD 50.2 % RA Area A4C 15.42 cm2 LV EF A2C MOD 53.2 % Ao Asc Diam d 3.57 cm M: 2.6 - 3.4 LV EF Biplane MOD 53.3 % LV EF Teichholz 45.9 % SV 71.93 mL LVEF (Diez's) 53.35 % M: 52 - 72 LV Volume 134.84 mL M: 62 - 150 LV Vol Biplane MOD 134.8 mL FS 23.05 % M-Mode TAPSE 2.13 cm (M/F) >1.7 LV Diastology MV E' medial 0.054 (>0.07 m/s) E/A Ratio 1.5 LV E/e MED 17.30 (<14) MV E Vmax 0.93 (0.4-1.3 m/s) MV E' lateral 0.076 (>0.1 m/s) MV A Vmax 0.60 (0.4-1.3 m/s) LV E/e LAT 12.20 (<14) MV E/A Ratio 1.45 MV E/E' medial 17.33 MV E/E' lateral 12.22 Aortic Valve LVOT Area 3.98 cm2 AoV Area Vmax 3.23 cm2 LVOT Vmax 1.25 m/s JODIE Mean Elder. 3.01 cm2 LVOT Mean Elder. 0.77 m/s AR DT 2279 msec LVOT Peak Grad 6.3 mmHg AR PHT 661 msec LVOT Mean Grad 2.8 mmHg LVOT VTI 0.313 m LVOT Diam s 2.25 cm AoV Vmax 1.55 m/s Velocity Ratio 0.80 AoV Mean Elder. 1.02 m/s AoV Peak Grad 9.6 mmHg LVOT SV 124.59 mL AoV Mean Grad 4.7 mmHg AoV VTI 0.383 m AoV Area VTI 3.25 cm2 Mitral Valve MV DT 242 (160-240 msec) MR Vmax 4.79 m/s MV PHT 70 msec MR VTI 2.041 m MV Area PHT 3.13 cm2 MR Peak Grad 91.8 mmHg MV VTI 0.358 m MR Mean Grad 67.3 mmHg MV Area VTI 3.48 (4.0-6.0 cm2) MR PISA Radius 0.39 cm MR EROA 0.07 cm2 MR Aliasing Velocity 0.35 m/s MR PISA 0.95 cm2 Pulmonary Valve PV Vmax 0.77 (0.5-1.5 m/s) RVOT Peak Gr. 1.55 mmHg PV Peak Grad 2.4 mmHg RVOT Mean Gr. 0.75 mmHg PV Mean Grad 1.4 mmHg RVOT VTI 0.129 m PV VTI 0.159 m RVOT Vmax 0.62 m/s Tricuspid Valve TR Peak Grad 20.2 mmHg TR Vmax 2.25 m/s RA Pressure 3.00 mmHg RVSP (TR) 23.2 mmHg
== END 2019-11-26 02:03 ==
PROVIDERS: PCP Nurse Practitioner; Visit Provider Internal Medicine Cardiovascular Disease
DX: I48.91 Unspecified atrial fibrillation (principal); R60.0 Localized edema; I08.0 Rheumatic disorders of both mitral and aortic valves
CPT/HCPCS: 93306

== ENCOUNTER 2020-04-09 04:58 | Outpatient (CLI) | payer MEDICARE, MEDICAID, SELFPAY ==
[2020-04-09 13:29] LABS: Abs Immature Grans 0.01 10^3/uL (0.0-0.06); Absolute Basophil Count 0.04 10^3/uL (0.0-0.2); Absolute Eosinophil Count 0.15 10^3/uL (0.0-0.7); Absolute Lymphocyte Count 0.89 10^3/uL (1.2-3.4); Absolute Monocyte Count 0.59 10^3/uL (0.1-0.8); Absolute Neutrophil Count 3.03 10^3/uL (1.2-6.7); Basophils % 0.8; Eosinophils % 3.2; HCT 29.1 % (40.0-50.0); HGB 8.9 g/dL (13.5-17.5); Immature Grans % 0.2; Lymphocytes % 18.9; MCH 23.4 pg (27.0-33.0); MCHC 30.6 % (32.0-36.0); MCV 76.4 fL (80-95); MPV 9.7 fL (8.0-11.0); Monocytes % 12.5; Neutrophils % 64.4; Nucleated RBC 0 %; Platelet Count 241 10^3/uL (130-400); RBC 3.81 10^6/uL (4.36-5.78); RDW 14.8 % (11.8-14.1); WBC 4.71 10^3/uL (4.4-10.8)
[2020-04-09 13:48] LABS: Diff Comment RBC Morph Reviewed; Hypochromasia 2+; Microcytosis 3+; Polychromasia Present
[2020-04-09 14:00] LABS: Iron 14 ug/dL (65-175)
[2020-04-09 14:14] LABS: Ferritin 16 ng/mL (26-388)
== END 2020-04-09 05:18 ==
PROVIDERS: PCP Nurse Practitioner; Visit Provider Nurse Practitioner
DX: D64.9 Anemia, unspecified (principal)
CPT/HCPCS: 36415; 82728; 83540; 85025

== ENCOUNTER 2020-05-10 15:49 | Outpatient (REF) | payer MEDICARE, MEDICAID, SELFPAY ==
[2020-05-10 18:29] LABS: MCH 22.4 pg (27.0-33.0); MCV 74.7 fL (80-95); MPV 10.1 fL (8.0-11.0); Platelet Count 253 10^3/uL (130-400); RBC 3.75 10^6/uL (4.36-5.78); WBC 4.93 10^3/uL (4.4-10.8)
[2020-05-10 18:34] LABS: ALT 75 U/L (16-63); AST 62 U/L (15-37); Albumin 3.5 g/dL (3.4-5.0); Alkaline Phosphatase 103 U/L (46-116); Anion Gap 9.4 mmol/L (3-11); BUN 10 mg/dL (7-18); Bilirubin, Total 0.4 mg/dL (0.2-1.0); CO2 25.6 mmol/L (21.0-32.0); CREATININE 1.48 mg/dL (0.70-1.30); Calcium 7.9 mg/dL (8.5-10.1); Chloride 101 mmol/L (98-107); Estimated GFR 45.97 (mL/min/1.73m2); Glucose 102 mg/dL (74-106); Sodium 136 mmol/L (136-145); TSH 2.32 uIU/mL (0.36-3.74); Total Protein 6.5 g/dL (6.4-8.2)
[2020-05-10 18:45] LABS: HGB 8.4 g/dL (13.5-17.5)
== END 2020-05-10 16:09 ==
LOC: LBO 15:49
PROVIDERS: PCP Nurse Practitioner; Visit Provider Nurse Practitioner
DX: D64.9 Anemia, unspecified (principal); I48.91 Unspecified atrial fibrillation; Z79.899 Other long term (current) drug therapy
CPT/HCPCS: 80053; 85027; 84443

== ENCOUNTER → 2020-05-13 12:48 | Outpatient (BNVA) | payer MEDICARE, MEDICAID, SELFPAY | PROVIDERS: PCP Nurse Practitioner; Referring Provider Nurse Practitioner; Visit Provider Internal Medicine Cardiovascular Disease | DX: R06.02 Shortness of breath (principal); I48.91 Unspecified atrial fibrillation; D64.9 Anemia, unspecified; I10 Essential (primary) hypertension; Z79.01 Long term (current) use of anticoagulants | CPT/HCPCS: 99214; 99213 ==

== ENCOUNTER → 2020-05-13 13:33 | Outpatient (BNVA) | payer MEDICARE, MEDICAID, SELFPAY | PROVIDERS: PCP Nurse Practitioner; Referring Provider Nurse Practitioner; Visit Provider Nurse Practitioner Gerontology | DX: N40.1 Benign prostatic hyperplasia with lower urinary tract symptoms (principal); R35.0 Frequency of micturition; R06.02 Shortness of breath; I48.91 Unspecified atrial fibrillation; D64.9 Anemia, unspecified; I10 Essential (primary) hypertension; Z79.01 Long term (current) use of anticoagulants | CPT/HCPCS: 99212; 99214 ==

== ENCOUNTER 2020-05-24 05:12 | Outpatient (CLI) | payer MEDICARE, MEDICAID, SELFPAY ==
[2020-05-24 13:10] LABS: HGB 8.2 g/dL (13.5-17.5); MCH 21.9 pg (27.0-33.0); MCHC 30.4 % (32.0-36.0); MCV 72.2 fL (80-95); MPV 9.4 fL (8.0-11.0); Platelet Count 235 10^3/uL (130-400); RBC 3.74 10^6/uL (4.36-5.78); RDW 15.1 % (11.8-14.1); RDW-SD 39.4 fL; WBC 5.84 10^3/uL (4.4-10.8)
[2020-05-24 14:07] LABS: ALT 64 U/L (16-63); AST 63 U/L (15-37); Albumin 3.6 g/dL (3.4-5.0); Alkaline Phosphatase 114 U/L (46-116); Bilirubin, Direct 0.14 mg/dL (0.00-0.20); Bilirubin, Total 0.4 mg/dL (0.2-1.0); FREE T4 1.36 ng/dL (0.76-1.46); TSH (W/Ref FT4) 2.01 uIU/mL (0.36-3.74); Total Protein 6.7 g/dL (6.4-8.2)
== END 2020-05-24 05:32 ==
PROVIDERS: Internal Medicine Cardiovascular Disease; PCP Nurse Practitioner; Visit Provider Nurse Practitioner
DX: D64.9 Anemia, unspecified (principal); I10 Essential (primary) hypertension; I48.91 Unspecified atrial fibrillation; I42.8 Other cardiomyopathies
CPT/HCPCS: 36415; 80076; 85027; 84439; 84443

== ENCOUNTER 2020-06-21 11:11 | Outpatient (CLI) | payer MEDICARE, MEDICAID, SELFPAY ==
[2020-06-21 11:41] LABS: Abs Immature Grans 0.03 10^3/uL (0.0-0.06); Absolute Basophil Count 0.07 10^3/uL (0.0-0.2); Absolute Eosinophil Count 0.22 10^3/uL (0.0-0.7); Absolute Lymphocyte Count 1.13 10^3/uL (1.2-3.4); Absolute Monocyte Count 0.72 10^3/uL (0.1-0.8); Absolute Neutrophil Count 4.04 10^3/uL (1.2-6.7); Basophils % 1.1; Eosinophils % 3.5; HCT 27.9 % (40.0-50.0); HGB 8.2 g/dL (13.5-17.5); Immature Grans % 0.5; Lymphocytes % 18.2; MCH 21.2 pg (27.0-33.0); MCHC 29.4 % (32.0-36.0); MCV 72.1 fL (80-95); MPV 8.9 fL (8.0-11.0); Monocytes % 11.6; Neutrophils % 65.1; Nucleated RBC 0 %; Platelet Count 236 10^3/uL (130-400); RBC 3.87 10^6/uL (4.36-5.78); RDW 16.2 % (11.8-14.1); RDW-SD 41.1 fL; Reticulocyte 1.9 % (0.5-2.4); WBC 6.21 10^3/uL (4.4-10.8)
[2020-06-21 12:15] LABS: Iron 13 ug/dL (65-175); Total Iron Binding Capacity 439 ug/dL (250-450); Transferrin Sat 3 % (20-55)
[2020-06-21 12:19] LABS: Ferritin 13 ng/mL (26-388); Folate 8.7 ng/mL (8.6-20.0); Vitamin B12 347 pg/mL (193-986)
== END 2020-06-21 11:12 | disposition home or self-care (01) ==
LOC: LBO 11:14
PROVIDERS: PCP Nurse Practitioner; Visit Provider Internal Medicine Medical Oncology
DX: D50.0 Iron deficiency anemia secondary to blood loss (chronic) (principal)
CPT/HCPCS: 36415; 82607; 82728; 82746; 83540; 83550; 85025; 85045

== ENCOUNTER 2020-08-16 03:29 | Outpatient (CLI) | payer MEDICARE, MEDICAID, SELFPAY ==
[2020-08-16 13:21] LABS: Abs Immature Grans 0.01 10^3/uL (0.0-0.06); Absolute Basophil Count 0.04 10^3/uL (0.0-0.2); Absolute Eosinophil Count 0.11 10^3/uL (0.0-0.7); Absolute Lymphocyte Count 1.01 10^3/uL (1.2-3.4); Absolute Monocyte Count 0.48 10^3/uL (0.1-0.8); Absolute Neutrophil Count 3.34 10^3/uL (1.2-6.7); Basophils % 0.8; Eosinophils % 2.2; HCT 37.7 % (40.0-50.0); Immature Grans % 0.2; Lymphocytes % 20.2; MCHC 31.8 % (32.0-36.0); MCV 84.7 fL (80-95); Monocytes % 9.6; Nucleated RBC 0 %; Platelet Count 222 10^3/uL (130-400); RBC 4.45 10^6/uL (4.36-5.78); RDW 22.3 % (11.8-14.1); RDW-SD 66.2 fL; WBC 4.99 10^3/uL (4.4-10.8)
[2020-08-16 13:42] LABS: Iron 51 ug/dL (65-175); Total Iron Binding Capacity 291 ug/dL (250-450); Transferrin Sat 18 % (20-55)
[2020-08-16 13:47] LABS: Anisocytosis 1+; Diff Comment Diff Reviewed; Hypochromasia 1+; Microcytosis 1+
[2020-08-16 14:23] LABS: Ferritin 271 ng/mL (26-388)
== END 2020-08-16 03:30 | disposition home or self-care (01) ==
LOC: LBO 03:29
PROVIDERS: PCP Nurse Practitioner; Visit Provider Internal Medicine Medical Oncology
DX: D50.0 Iron deficiency anemia secondary to blood loss (chronic) (principal)
CPT/HCPCS: 36415; 82728; 83540; 83550; 85025

== ENCOUNTER 2021-01-31 08:51 | Outpatient (CLI) | payer MEDICARE, MEDICAID, SELFPAY ==
[2021-01-31 13:40] LABS: Abs Immature Grans 0.02 10^3/uL (0.0-0.06); Absolute Basophil Count 0.05 10^3/uL (0.0-0.2); Absolute Eosinophil Count 0.11 10^3/uL (0.0-0.7); Absolute Lymphocyte Count 0.92 10^3/uL (1.2-3.4); Absolute Monocyte Count 0.67 10^3/uL (0.1-0.8); Absolute Neutrophil Count 3.66 10^3/uL (1.2-6.7); Basophils % 0.9; HCT 28.8 % (40.0-50.0); HGB 8.8 g/dL (13.5-17.5); Immature Grans % 0.4; Lymphocytes % 16.9; MCH 23.5 pg (27.0-33.0); MCHC 30.6 % (32.0-36.0); MCV 76.8 fL (80-95); MPV 9.2 fL (8.0-11.0); Monocytes % 12.3; Neutrophils % 67.5; Nucleated RBC 0 %; Platelet Count 265 10^3/uL (130-400); RBC 3.75 10^6/uL (4.36-5.78); RDW 14.2 % (11.8-14.1); RDW-SD 39.6 fL; WBC 5.43 10^3/uL (4.4-10.8)
[2021-01-31 16:54] LABS: Iron 15 ug/dL (65-175); Total Iron Binding Capacity 425 ug/dL (250-450); Transferrin Sat 4 % (20-55)
[2021-01-31 17:08] LABS: Ferritin 14 ng/mL (26-388)
== END 2021-01-31 08:52 | disposition home or self-care (01) ==
LOC: LBO 08:55
PROVIDERS: PCP Nurse Practitioner; Visit Provider Internal Medicine Medical Oncology
DX: D50.0 Iron deficiency anemia secondary to blood loss (chronic) (principal)
CPT/HCPCS: 36415; 82728; 83540; 83550; 85025

== ENCOUNTER → 2021-02-10 13:42 | Outpatient (BNVA) | payer MEDICARE, MEDICAID, SELFPAY | PROVIDERS: PCP Nurse Practitioner; Referring Provider Nurse Practitioner; Visit Provider Internal Medicine Cardiovascular Disease | DX: I42.9 Cardiomyopathy, unspecified (principal); I10 Essential (primary) hypertension; Z79.01 Long term (current) use of anticoagulants | CPT/HCPCS: 99213 ==

== ENCOUNTER → 2021-02-10 13:57 | Outpatient (BNVA) | payer MEDICARE, SELFPAY | PROVIDERS: PCP Nurse Practitioner; Referring Provider Nurse Practitioner; Visit Provider Nurse Practitioner Gerontology | DX: N40.1 Benign prostatic hyperplasia with lower urinary tract symptoms (principal) | CPT/HCPCS: 99213 ==

== ENCOUNTER 2021-03-23 13:10 | Outpatient (RCR) | payer MEDICARE, MEDICAID, SELFPAY ==
[2021-03-23 13:37] LABS: Abs Immature Grans 0.03 10^3/uL (0.0-0.06); Absolute Basophil Count 0.07 10^3/uL (0.0-0.2); Absolute Eosinophil Count 0.18 10^3/uL (0.0-0.7); Absolute Lymphocyte Count 1.09 10^3/uL (1.2-3.4); Absolute Monocyte Count 0.59 10^3/uL (0.1-0.8); Absolute Neutrophil Count 4.95 10^3/uL (1.2-6.7); Eosinophils % 2.6; HCT 34.1 % (40.0-50.0); HGB 10.7 g/dL (13.5-17.5); Immature Grans % 0.4; Lymphocytes % 15.8; MCH 25.8 pg (27.0-33.0); MCHC 31.4 % (32.0-36.0); MCV 82.2 fL (80-95); MPV 9.5 fL (8.0-11.0); Monocytes % 8.5; Neutrophils % 71.7; Nucleated RBC 0 %; Platelet Count 252 10^3/uL (130-400); RBC 4.15 10^6/uL (4.36-5.78); RDW 19.9 % (11.8-14.1); RDW-SD 59.1 fL; WBC 6.91 10^3/uL (4.4-10.8)
[2021-03-23 14:03] LABS: Ferritin 57 ng/mL (26-388)
== END 2021-03-29 23:59 | disposition home or self-care (01) ==
LOC: INF 13:10
PROVIDERS: Internal Medicine Medical Oncology; PCP Nurse Practitioner; Visit Provider Internal Medicine Hematology & Oncology
DX: D50.0 Iron deficiency anemia secondary to blood loss (chronic) (principal)
CPT/HCPCS: 36415; 82728; 85025

== ENCOUNTER 2021-05-02 02:42 | Outpatient (CLI) | payer OTHER, MEDICAID, SELFPAY ==
[2021-05-02 13:36] LABS: Abs Immature Grans 0.02 10^3/uL (0.0-0.06); Absolute Basophil Count 0.05 10^3/uL (0.0-0.2); Absolute Eosinophil Count 0.11 10^3/uL (0.0-0.7); Absolute Lymphocyte Count 1.36 10^3/uL (1.2-3.4); Absolute Monocyte Count 0.83 10^3/uL (0.1-0.8); Absolute Neutrophil Count 5.35 10^3/uL (1.2-6.7); Basophils % 0.6; Eosinophils % 1.4; HCT 37.8 % (40.0-50.0); HGB 11.7 g/dL (13.5-17.5); Immature Grans % 0.3; Lymphocytes % 17.6; MCH 25.4 pg (27.0-33.0); MPV 9.2 fL (8.0-11.0); Monocytes % 10.8; Neutrophils % 69.3; Nucleated RBC 0 %; Platelet Count 241 10^3/uL (130-400); RBC 4.61 10^6/uL (4.36-5.78); RDW 15.5 % (11.8-14.1); RDW-SD 46.6 fL; WBC 7.72 10^3/uL (4.4-10.8)
[2021-05-02 14:54] LABS: Iron 31 ug/dL (65-175); Total Iron Binding Capacity 405 ug/dL (250-450); Transferrin Sat 8 % (20-55)
[2021-05-02 15:07] LABS: Ferritin 17 ng/mL (26-388)
== END 2021-05-02 02:43 | disposition home or self-care (01) ==
LOC: LBO 02:42
PROVIDERS: PCP Nurse Practitioner; Visit Provider Internal Medicine Medical Oncology
DX: D50.0 Iron deficiency anemia secondary to blood loss (chronic) (principal)
CPT/HCPCS: 36415; 82728; 83540; 83550; 85025

== ENCOUNTER 2021-08-15 11:49 | Outpatient (CLI) | payer OTHER, MEDICAID, SELFPAY ==
[2021-08-15 12:17] LABS: Abs Immature Grans 0.02 10^3/uL (0.0-0.06); Absolute Basophil Count 0.06 10^3/uL (0.0-0.2); Absolute Eosinophil Count 0.12 10^3/uL (0.0-0.7); Absolute Lymphocyte Count 0.89 10^3/uL (1.2-3.4); Absolute Monocyte Count 0.64 10^3/uL (0.1-0.8); Absolute Neutrophil Count 3.62 10^3/uL (1.2-6.7); Basophils % 1.1; Eosinophils % 2.2; HCT 37.7 % (40.0-50.0); HGB 12.1 g/dL (13.5-17.5); Immature Grans % 0.4; Lymphocytes % 16.6; MCH 27.6 pg (27.0-33.0); MCHC 32.1 % (32.0-36.0); MCV 85.9 fL (80-95); MPV 9.2 fL (8.0-11.0); Neutrophils % 67.7; Platelet Count 218 10^3/uL (130-400); RBC 4.39 10^6/uL (4.36-5.78); RDW 15.3 % (11.8-14.1); RDW-SD 48.2 fL; WBC 5.35 10^3/uL (4.4-10.8)
[2021-08-15 12:41] LABS: Ferritin 27 ng/mL (26-388)
[2021-08-15 13:46] LABS: Iron 24 ug/dL (65-175); Total Iron Binding Capacity 421 ug/dL (250-450); Transferrin Sat 6 % (20-55)
== END 2021-08-15 11:50 | disposition home or self-care (01) ==
LOC: LBO 11:54
PROVIDERS: PCP Nurse Practitioner; Visit Provider Internal Medicine Medical Oncology
DX: D50.0 Iron deficiency anemia secondary to blood loss (chronic) (principal)
CPT/HCPCS: 36415; 82728; 83540; 83550; 85025

== ENCOUNTER → 2021-08-24 03:18 | Outpatient (CLI) | payer OTHER, MEDICAID, SELFPAY ==
--- NOTE | 2021-08-24 | DI.RAD_ITS ---
Exam(s) XR CHEST 2V PA LATERAL EXAM: XR CHEST 2V PA LATERAL CLINICAL HISTORY: PROGRESSIVE DYSPNEA OVER PAST 4 WKS, R06.00 TECHNIQUE: 2D digital imaging was performed. COMPARISON: CR XR RIBS LT W PA LAT CHEST from 04/25/2019 FINDINGS: HEART: Enlarged, stable. Aorta tortuous. PULMONARY VASCULATURE: Normal. LUNGS: Clear. PLEURAL SPACE: No pleural effusion or pneumothorax. BONE:Multiple old right rib fractures. Degenerative changes in the spine. No compression fractures. IMPRESSION: No acute abnormality. DATA REPOSITORY: RADIATION DOSE DELIVERED:
== END ==
PROVIDERS: PCP Nurse Practitioner; Visit Provider Internal Medicine Medical Oncology
DX: R06.09 Other forms of dyspnea (principal); S22.41XD Multiple fractures of ribs, right side, subsequent encounter for fracture with routine healing
CPT/HCPCS: 71046

== ENCOUNTER → 2021-09-06 09:39 | Outpatient (BNVA) | payer OTHER, MEDICAID, SELFPAY | PROVIDERS: PCP Nurse Practitioner; Referring Provider Nurse Practitioner; Visit Provider Nurse Practitioner Gerontology | DX: N40.1 Benign prostatic hyperplasia with lower urinary tract symptoms (principal); R35.0 Frequency of micturition | CPT/HCPCS: 51798; 99214 ==

== ENCOUNTER 2021-09-13 09:00 | Outpatient (CLI) | payer OTHER, SELFPAY ==
--- NOTE | 2021-09-13 09:00 | RT.EKG_ITS ---
APPROVED REPORT Exam: Resting ECG Reason for Exam: SOB, LE edema Patient Location: O HR:89 bpm ECG Measurements Heart Rate 89 AXIS KS [id number] P [id number] QRSd 165 QRS -43 QT 440 T 2 QTc 539 Conclusion Atrial fibrillation...? atrial activity RBBB and LAFB...QRSd >120mS, axis(-40,240)
== END 2021-09-13 09:01 | disposition home or self-care (01) ==
LOC: DI.KIM 09:01
PROVIDERS: PCP Nurse Practitioner; Visit Provider Nurse Practitioner
DX: I48.91 Unspecified atrial fibrillation (principal); R06.00 Dyspnea, unspecified; R60.0 Localized edema
CPT/HCPCS: 93010

== ENCOUNTER → 2021-09-13 09:26 | Outpatient (BNVA) | payer OTHER, MEDICAID, SELFPAY | PROVIDERS: PCP Nurse Practitioner; Referring Provider Nurse Practitioner; Visit Provider Internal Medicine Cardiovascular Disease | DX: I48.91 Unspecified atrial fibrillation (principal); I42.9 Cardiomyopathy, unspecified; I50.9 Heart failure, unspecified | CPT/HCPCS: 99214; 99213 ==

== ENCOUNTER → 2021-09-16 01:28 | Outpatient (CLI) | payer OTHER, SELFPAY | PROVIDERS: PCP Nurse Practitioner; Visit Provider Internal Medicine Cardiovascular Disease ==

== ENCOUNTER 2021-09-27 02:47 | Outpatient (CLI) | payer OTHER, MEDICAID, SELFPAY ==
[2021-09-27 09:52] LABS: ALT 51 U/L (16-63); AST 43 U/L (15-37); Albumin 3.9 g/dL (3.4-5.0); Alkaline Phosphatase 114 U/L (46-116); Anion Gap 10.7 mmol/L (3-11); BUN 16 mg/dL (7-18); Bilirubin, Total 0.8 mg/dL (0.2-1.0); CO2 27.3 mmol/L (21.0-32.0); CREATININE 1.2 mg/dL (0.70-1.30); Calcium 8.8 mg/dL (8.5-10.1); Calculated LDL 80 mg/dL (<100); Chloride 100 mmol/L (98-107); Cholesterol 177 mg/dL (<200); Glucose 107 mg/dL (74-106); HDL Cholesterol 41 mg/dL (40-60); Potassium 4.1 mmol/L (3.5-5.1); Sodium 138 mmol/L (136-145); Total Protein 6.9 g/dL (6.4-8.2); Triglyceride 281 mg/dL (<150)
== END 2021-09-27 02:48 | disposition home or self-care (01) ==
LOC: LBO 02:47
PROVIDERS: PCP Nurse Practitioner; Referring Provider Nurse Practitioner; Visit Provider Nurse Practitioner
DX: I10 Essential (primary) hypertension (principal); R79.89 Other specified abnormal findings of blood chemistry; D50.0 Iron deficiency anemia secondary to blood loss (chronic); I50.9 Heart failure, unspecified; I48.91 Unspecified atrial fibrillation
CPT/HCPCS: 36415; 80053; 80061; 99214

== ENCOUNTER 2021-10-06 01:49 | Outpatient (CLI) | payer OTHER, MEDICAID, SELFPAY ==
--- NOTE | 2021-10-06 08:00 | DI.US_ITS ---
APPROVED REPORT EXAM: Comprehensive 2D, Doppler, and color-flow Echocardiogram Patient Location: Out-Patient Quality Improvement Coordinator: Soniya Avalos RDCS (AE) Indications: SOB, A Fib,A Flutter Other Information Study Quality: Adequate. Technically limited study due to body habitus. Conclusion Normal left ventricular wall thickness and chamber size. Estimated ejection fraction is 30 to 35%. There is global hypokinesis The right ventricle is normal in size, may be mildly hypokinetic Left atrium is moderately dilated. Right atrium is normal in size Aortic valve is sclerotic and trileaflet with mild regurgitation Mildly thickened mitral leaflets. Trace to mild mitral regurgitation Normal tricuspid valve with mild regurgitation. Estimated right ventricular systolic pressure is 32 mmHg Mildly dilated ascending aorta measuring 3.58 cm Patient was in atrial fibrillation during the study with heart rates on average approximately 100 Wall motion Left Ventricle The left ventricle is normal size. Left ventricular systolic function is moderately decreased. There is normal left ventricular wall thickness. There is no ventricular septal defect visualized. LVEF is 30-35%. Right Ventricle The right ventricle is normal size. Right ventricle is mildly hypokinetic. The RVSP is 32.0mmHg. Atria Left atrium is moderately dilated. The right atrium size is normal. The interatrial septum is intact with no evidence for an atrial septal defect. Aortic Valve The Aortic valve is sclerotic. There is no aortic valvular stenosis. Mild aortic regurgitation. Mitral Valve The mitral valve is mildly thickened. No evidence of mitral valve stenosis. Trace to mild mitral regu rgitation. Tricuspid Valve The tricuspid valve is normal in structure. There is no tricuspid valve stenosis. Mild tricuspid regu rgitation. Pulmonic Valve The pulmonary valve is normal in structure. There is no pulmonic valvular stenosis. There is no pulmo steph valvular regurgitation. Great Vessels The aortic root is normal in size. The ascending aorta is mildly dilated. Aortic arch is normal in ca liber. IVC is normal in size and collapses >50% with inspiration. Pericardium There is no pericardial effusion. 2D Dimensions IVSD d PLAX 1.11 cm M: 0.6-1.2 LV Vol A2C d MOD 144.2 mL LVPW d PLAX 1.15 cm M: 0.6 - 1.2 LV Vol A4C d MOD 148.9 mL LVID d PLAX 5.40 cm M: 4.2 - 5.8 LA vol/ BSA A2C s A-L 46.7 mL/m2 LVDs 4.60 cm M: 2.5 - 4.0 LA vol/ BSA A4C s A-L 50.6 mL/m2 Ao Root d 3.57 cm M: 3.1 - 3.7 LA Vol/ BSA Biplane s A-L 53.0 mL/m2 RA Area A4C 19.58 cm2 LA Area A4C s MOD 27.62 cm2 RA Vol/ BSA A4C s A-L 37.8 mL/m2 LA Area A2C s MOD 24.34 cm2 Ao Asc Diam d 3.58 cm M: 2.6 - 3.4 LV EF A4C MOD 35.5 % LV EF Teichholz 30.3 % LV EF A2C MOD 30.2 % LVEF (Diez's) 33.09 % M: 52 - 72 LV EF Biplane MOD 33.1 % LV Volume 115.40 mL M: 62 - 150 SV 49.34 mL LV Volume Index 63.40 mL/m2 M: 34 - 74 SV Index 27.03 mL/m2 LV Vol Biplane MOD 149.1 mL FS 14.35 % M-Mode TAPSE 1.16 cm (M/F) >1.7 LV Diastology MV E' lateral 0.086 (>0.1 m/s) MV E Vmax 0.86 (0.4-1.3 m/s) LV E/e LAT 10.00 (<14) MV E/E' lateral 10.00 Aortic Valve LVOT Area 3.72 cm2 AoV Area Vmax 3.19 cm2 LVOT Vmax 1.09 m/s AoV Area/ BSA (Vmax) 1.75 cm2/m2 LVOT Mean Elder. 0.74 m/s JODIE Mean Elder. 3.09 cm2 LVOT Peak Grad 4.8 mmHg JODIE Mean Elder. Index 1.69 cm2/m2 LVOT Mean Grad 2.7 mmHg AR DT 1419 msec LVOT VTI 0.207 m AR PHT 412 msec LVOT Diam s 2.15 cm AoV Vmax 1.27 m/s Velocity Ratio 0.85 AoV Mean Elder. 0.89 m/s AoV Peak Grad 6.5 mmHg LVOT SV 76.74 mL AoV Mean Grad 3.5 mmHg AoV VTI 0.226 m AoV Area VTI 3.39 cm2 AoV Area/ BSA (VTI) 1.86 cm/m2 Mitral Valve MV DT 157 (160-240 msec) MR Vmax 3.34 m/s MV PHT 46 msec MR VTI 1.158 m MV Area PHT 4.83 cm2 MR Peak Grad 44.6 mmHg MV VTI 0.336 m MR Mean Grad 38.2 mmHg MV VTI Annulus 0.365 m MV Area VTI 2.50 (4.0-6.0 cm2) Pulmonary Valve PV Vmax 0.57 (0.5-1.5 m/s) RVOT Peak Gr. 0.52 mmHg PV Peak Grad 1.3 mmHg RVOT Mean Gr. 0.35 mmHg PV Mean Grad 0.8 mmHg RVOT VTI 0.075 m PV VTI 0.119 m RVOT Vmax 0.36 m/s Tricuspid Valve TR Peak Grad 29.0 mmHg TR Vmax 2.70 m/s RA Pressure 3.00 mmHg RVSP (TR) 32.0 mmHg
== END 2021-10-06 02:09 ==
PROVIDERS: PCP Nurse Practitioner; Visit Provider Internal Medicine Cardiovascular Disease
DX: I48.91 Unspecified atrial fibrillation (principal)
CPT/HCPCS: 93306

== ENCOUNTER 2021-10-11 02:11 | Outpatient (CLI) | payer OTHER, SELFPAY ==
[2021-10-11 10:19] LABS: Source Nasal/Nares
[2021-10-11 15:26] LABS: COVID-19 PCR Negative (Negative)
== END 2021-10-11 02:12 | disposition home or self-care (01) ==
PROVIDERS: PCP Nurse Practitioner; Visit Provider Internal Medicine Cardiovascular Disease
DX: Z20.822 Contact with and (suspected) exposure to COVID-19 (principal); Z01.818 Encounter for other preprocedural examination
CPT/HCPCS: 87635; U0005

== ENCOUNTER 2021-10-13 07:02 | Day surgery (SDC) | payer OTHER, MEDICAID, SELFPAY ==
--- NOTE | 2021-10-13 07:30 | RT.EKG_ITS ---
APPROVED REPORT Exam: Resting ECG Reason for Exam: pre op cardioversion Patient Location: O HR:58 bpm ECG Measurements Heart Rate 58 AXIS LA 256 P 57 QRSd 169 QRS -43 QT 546 T 26 QTc 536 Conclusion Sinus bradycardia...rate< 60 Prolonged LA interval...LA >220, V-rate 50- 90 RBBB and LAFB...QRSd >120mS, axis(-40,240) Sinus rhythm since previous
[2021-10-13 07:59] VITALS: BP 131/86; PULSE 87; RESP 17; TEMP 36.4; O2SAT 96
--- NOTE | 2021-10-13 08:20 | ANES.PREOP_ITS ---
General Info Date of Service Date Performed: 10/13/21 Height: 5 ft 5 in Weight: 76.8 kg Body Mass Index (BMI): 28.1 Surgical Procedure: Operation Date: 10/13/21 09:00 Proposed Procedure Side Surgeon p Cardioversion Teresita Lemos MD Meds Allergies and Home Medications Allergies Allergy/AdvReac Type Severity Reaction Status Date / Time No Known Drug Allergies Allergy Verified 10/13/21 07:55 Home Medication Medication Instructions Recorded valsartan 160 mg tablet 160 mg PO DAILY #90 tabs 05/23/21 rivaroxaban 20 mg tablet (Xarelto) 20 mg PO DAILY #90 tabs 07/28/21 amiodarone 200 mg tablet 200 mg PO DAILY #90 tab-caps 08/04/21 omeprazole 20 mg capsule,delayed 20 mg PO BID #180 caps 08/18/21 release diphenhydramine HCl 25 mg tablet 25 mg PO TID PRN 09/13/21 (Banophen) furosemide 40 mg tablet 40 mg PO BID #180 tabs 09/13/21 losartan 100 mg tablet 100 mg PO DAILY 09/13/21 Current Visit Medications: Current Medications Generic Name Dose Route Start Last Admin Trade Name Freq PRN Reason Stop Dose Admin Sodium Chloride 1,000 mls @ 30 mls/hr 10/13/21 07:30 Saline 1000ml Bag IV INFUSION LISSY Sodium Chloride 100 mls @ 30 mls/hr 10/13/21 06:00 Saline 100ml Bag IV 11/11/21 23:59 INFUSION LISSY IV Miscellaneous Supplies 1 each 10/13/21 06:00 Iv Access IV 11/11/21 23:59 DIRECTED LISSY Sodium Chloride 0 ml 10/13/21 06:00 Normal Saline Flush 10 Ml Syr IV 11/11/21 23:59 PRN PRN Sodium Chloride 0 ml 10/13/21 06:00 Normal Saline 10 Ml Vial IJ 11/11/21 23:59 DIRECTED PRN Sterile Water 0 ml 10/13/21 06:00 Water,Injection,Sterile 10 Ml Vial IJ 11/11/21 23:59 DIRECTED PRN PFSH Active Problems Active Problems: Problem Status Onset Code Congestive heart failure I50.9 Iron deficiency anemia due to chronic blood loss D50.0 Atrial fib/flutter, transient Anemia D64.9 At risk for amiodarone toxicity with buttermaker continuous churn use Z91.89, Z79.899 Pre-op evaluation Z01.818 Cataract H26.9 First degree atrioventricular block 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 Dyspnea R06.00 Essential hypertension I10 Wheeze R06.2 Cough R05 Poor compliance with CPAP treatment Z91.14 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 Anemia D64.9 Tubular adenoma of colon ~04/2018 D12.6 Diverticulosis K57.90 Hiatal hernia K44.9 Obstructive sleep apnea 07/20/15 G47.33 Nocturia more than twice per night 10/20/16 R35.1 History of alcohol abuse 05/20/15 Z87.898 Heme positive stool 05/19/15 R19.5 Elevated serum creatinine 10/20/16 R79.89 Chronic anticoagulation 05/19/15 Z79.01 Cardiomyopathy 05/19/15 I42.9 Atrial fibrillation 05/17/15 I48.91 Gastrointestinal hemorrhage K92.2 Medical History Medical History Atrial fibrillation Chronic anticoagulation eliquis Helicobacter pylori gastritis Helicobacter pylori gastritis (01/31/15) History of alcohol abuse Noncompliance with medication regimen (05/19/15) ALBERTO (obstructive sleep apnea) Personal history of tobacco use (05/20/15) none since Jan 2015 Daily cigars Poor dentition Poor dentition (12/30/15) Tobacco abuse Surgical History Surgical History Colonoscopy - IV Sedation (02/08/15) w/ BX Dr. Lee sigmoid diverticulosis, Final Path Diagnosis: Inflammatory polyp Colonoscopy - MAC (09/12/17) EGD - IV Sedation (01/31/15) Dr Lee Final Pathologic Diagnosis: Gastric Antrum stomach biopsy -Gastric antral mucosa with H. Pylori gastritis and focal intestianl metaplasia -H. Pylori seen on HE stain Gastric body stomach biopsy -Gastric body mucosa with H. Pylori gastritis -H. Pylori seen on HE stain Addendum to above path diagnosis: Biopsy Esophagus - Gastric fundic type mucosa with active erosive gastritis. EGD - MAC (09/12/17) 05/27/18 Colonoscopy- multiple diverticula, internal hemorrhoids, 2-sessile polyps in ascending colon3-5mm size, diverticulosis in the entire examined colon H/O endoscopy History of endoscopy (05/28/18) 05/27/18 Upper GI-medium sized hiatal hernia present at 35-40cm, normal esophagus, Irregular Z-line at 35 cm from incisors, normal stomach and duodenum 05/28/18-video capsule [id number] duodenum,jejunum,and ileum. hx previous rib fxs Repair of inguinal hernia right; years ago rib fx (11/22/08) S/P cataract extraction and insertion of intraocular lens (10/08/19) right L done 11/03/19-[facility] [place],Dr Monte small bowel enteroscopy (03/22/15) [facility] [place] Dr. Champagne Tobacco Smoking/Tobacco Use Status: Former Tobacco Use Alcohol Alcohol Intake: current Alcohol intake frequency: holidays/special occasions only Alcohol type: beer Substance Use Substance use: Never Substance use type: does not use Vital Signs and Lab Results Vital Signs Most Recent Vital Signs in EMR: Most Recent Vital Signs Temp Pulse Resp BP Pulse Ox 36.4 C L 87 17 131/86 96 10/13/21 07:59 10/13/21 07:59 10/13/21 07:59 10/13/21 07:59 10/13/21 07:59 Lab Results Blood Type / Crossmatch: No Data to Display Complete Blood Count: No Data to Display Complete Metabolic Panel: Sodium Level 138 mmol/L (136-145) 09/27/21 07:47 Potassium Level 4.1 mmol/L (3.5-5.1) 09/27/21 07:47 Chloride Level 100 mmol/L (98-107) 09/27/21 07:47 Carbon Dioxide Level 27.3 mmol/L (21.0-32.0) 09/27/21 07:47 Blood Urea Nitrogen 16 mg/dL (7-18) 09/27/21 07:47 Creatinine 1.2 mg/dL (0.70-1.30) 09/27/21 07:47 Estimated GFR/1.73 m2 58.40 (mL/min/1.73m2) 09/27/21 07:47 Calcium Level 8.8 mg/dL (8.5-10.1) 09/27/21 07:47 Albumin 3.9 g/dL (3.4-5.0) 09/27/21 07:47 Glucose Level 107 mg/dL (74-106) H 09/27/21 07:47 Liver Function Panel: Alanine Aminotransferase (ALT/SGPT) 51 U/L (16-63) 09/27/21 07: 47 Aspartate Amino Transf (AST/SGOT) 43 U/L (15-37) H 09/27/21 07: 47 Coagulation Panel: No Data to Display Cardiac Panel: No Data to Display Arterial Blood Gas: No Data to Display Venous Blood Gas: No Data to Display Pancreas Panel: No Data to Display Thyroid Panel: No Data to Display Infectious Disease: Coronavirus (COVID-19)(PCR) Negative (Negative) 10/11/21 09:45 Coronavirus 2019 Source Nasal/Nares 10/11/21 09:45 Blood Cultures: No Data to Display Toxicology Panel: No Data to Display Imaging and Studies Imaging and Studies Study information below may be from another EMR and interpreted by another provider. Please see original notes in EMR for more complete details. Stress Test Summary: Date of study: 06/02/2015 *PATIENT PRESENTATION* Height: 162.6cm (64in ) Blood Pressure: Weight: 78.2kg (172lb ) BSA: 1.9m^2 Impressions: - Myocardial perfusion imaging is abnormal. - Abnormal contraction consistent with cardiomyopathy. Summary: 1. Myocardial perfusion imaging: The left ventricle is severely dilated. The right ventricle is severely dilated. There is a small sized, mildly intense, partially reversible defect involving the inferior and inferolateral wall(s). This suggests small myocardial infarction and minimal ischemia in the distribution of right coronary artery or the left circumflex coronary artery. 2. The calculated left ventricular ejection fraction after stress: 16%. LV global systolic function is severely reduced. No left ventricular regional motion abnormality. There is hypokinesis. 3. Stress ECG conclusions: The stress ECG is negative. The sensitivity of this test is limited by baseline right bundle branch block. 4. Stress: There is a normal resting blood pressure. Normal blood pressure response to adenosine. Echocardiogram Summary: Date of Exam: 10/06/21Sex: M Admission Date: 10/06/21 : 1940 Age: 80 Indications: SOB, A Fib,A Flutter Conclusion Normal left ventricular wall thickness and chamber size. Estimated ejection fraction is 30 to 35%. There is global hypokinesis The right ventricle is normal in size, may be mildly hypokinetic Left atrium is moderately dilated. Right atrium is normal in size Aortic valve is sclerotic and trileaflet with mild regurgitation Mildly thickened mitral leaflets. Trace to mild mitral regurgitation Normal tricuspid valve with mild regurgitation. Estimated right ventricular systolic pressure is 32 mmHg Mildly dilated ascending aorta measuring 3.58 cm Patient was in atrial fibrillation during the study with heart rates on average approximately 100 Pulmonary Function Summary: DATE OF SERVICE - 03/19/2018 REQUESTING PROVIDER Jose Soni M.D. INTERPRETATION OF STUDY Spirometry shows no evidence of obstructive airways disease. No bronchodilator response. LUNG VOLUMES - Lung volumes show mild restriction. DIFFUSION CAPACITY- Moderately reduced, which is normal when corrected to alveolar volume. AIRWAY RESISTANCE - Normal. IMPRESSION Mild restrictive lung disease associated with moderately severe diffusion defect. Clinical correlation recommended. Underlying interstitial lung disease based on the constellation of these findings is suspected. Anesthesia Assessment and Plan Anesthesia History Personal History: No History of Anesthesia Complications Family History: No Family History of Anesthesia Complications Exercise Tolerance Exercise Tolerance: Metabolic Equivalents>4 Pertinent Negatives Pertinent Negatives: No Symptoms of GERD and No Major Pulmonary Symptoms or Complaints Cardiac & Pulmonary Exam Cardiac Exam: Normal S1/S2 Heart Sounds Pulmonary Exam: Clear Bilateral Breath Sounds Implantable Cardiac Device Does patient have a Pacemaker or an ICD?: No Airway Exam Known Difficult Airway: No Mallampati Class: 2 Mouth Opening: Normal (> 3cm) Thyromental Distance: Greater than 3 cm Neck Range of Motion: Full ROM Neck Circumference: Normal Teeth Condition: Edentulous ASA Classification ASA Score: ASA 3 Emergency Case?: No NPO Status NPO Status: NPO Clears >2 hours, Solids >8 hours Anesthesia Plan Resuscitation Status: Full Code Anesthesia Technique: General Anesthesia Airway Planned: Natural Airway Monitors Used: Standard Monitors
[2021-10-13 08:29] VITALS: BMI 28.1
[2021-10-13] MEDS: Normal Saline 500 ML 15 ML IV (08:29)
[2021-10-13 09:00] VITALS: BP 128/64; PULSE 58; RESP 16; TEMP 36.5; O2SAT 94
--- NOTE | 2021-10-13 09:02 | W.PM.DSUDISC ---
Discharge Plan Disposition Patient Disposition: HOME Condition: Stable Discharge Details Reason For Visit: cardioversion Attending Provider: Teresita Lemos Primary Care Provider: Stefanie Hoffman Home Meds and New Rx's Prescriptions: No Action valsartan 160 mg tablet 160 mg PO DAILY Qty: 90 3RF losartan 100 mg tablet 100 mg PO DAILY diphenhydramine HCl [Banophen] 25 mg tablet 25 mg PO TID PRN furosemide 40 mg tablet 40 mg PO BID Qty: 180 3RF Xarelto 20 mg tablet 20 mg PO DAILY Qty: 90 4RF Rx Instructions: must administer with evening meal amiodarone 200 mg tablet 200 mg PO DAILY Qty: 90 4RF omeprazole 20 mg capsule,delayed release(DR/EC) 20 mg PO BID Qty: 180 3RF Discharge Instructions Stand Alone Forms: DSU Cardioversion Post-Op Discharge Orders Discharge Orders: Discharge Order (Routine); Ordered 10/13/21 Ordered By: Teresita Lemos DS: Diagnosis Discharge Diagnosis (1) Atrial fib/flutter, transient: Status: Acute
--- NOTE | 2021-10-13 09:12 | CARD_ITS ---
Date of service: 10/13/21 Time of Service: 09:12 Cardioversion DATE OF PROCEDURE: 10/13/21 PRE-OP DIAGNOSES: Atrial fibrillation POST-OP DIAGNOSES: same Indications: Synchronized cardioversion for atrial fibrillation Procedure Description: Patient was brought to the procedure room and was connected to the anterior and posterior defibrillator pads., With blood pressure and pulse oximetry. Sedation was administered under the direction of the department of anesthesia. When adequate sedation was achieved, the patient had 1 synchronized shock at 150 W seconds with zoroastrian of sinus rhythm in the 60s. Subsequent vital signs were stable. Patient was allowed to recover from anesthesia and was taken to the postoperative area for additional monitoring. He will be discharged when fully awake. Office follow-up is planned in 2 weeks
[2021-10-13 09:28] VITALS: PULSE 60; RESP 16; TEMP 36.4; O2SAT 95
--- NOTE | 2021-10-13 09:56 | W.ANESPOSTOP ---
Postoperative Evaluation Date, Time and Location Date Performed: 10/13/21 Time Performed: 09:30 Patient Location: Day Surgery Unit Vital Signs Most Recent Imported Vital Signs: Most Recent Vital Signs Temp Pulse Resp BP Pulse Ox 36.4 C L 60 16 128/64 95 10/13/21 09:28 10/13/21 09:28 10/13/21 09:28 10/13/21 09:00 10/13/21 09:28 Pain Score Most Recent Pain Score: Most Recent Pain Score Pain Level 0 10/13/21 09:28 Assessment Mental Status: Awake (Alert & Oriented to Patient Baseline) Airway and Respiratory Function: Patent airway with normal (patient baseline) respiratory exam Cardiovascular Function: Hemodynamically Stable Hydration Status: Adequately Hydrated Nausea & Vomiting: No Nausea or Vomiting Pain: Pt. Denies Any Pain Peripheral Nerve Block: Patient did not receive a nerve block
--- NOTE | 2021-10-13 10:00 | RT.EKG_ITS ---
APPROVED REPORT Exam: Resting ECG Reason for Exam: post op cardioversion Patient Location: O HR:89 bpm ECG Measurements Heart Rate 89 AXIS SD [id number] P [id number] QRSd 161 QRS -41 QT 468 T 1 QTc 572 Conclusion Atrial fibrillation...? atrial activity RBBB and LAFB...QRSd >120mS, axis(-40,240)
== END 2021-10-13 09:45 | disposition home or self-care (01) ==
PROVIDERS: PCP Nurse Practitioner; Visit Provider Internal Medicine Cardiovascular Disease
PROC: 5A2204Z Restoration of Cardiac Rhythm, Single (ICD-10-PCS; CPT 92960; principal; 2021-10-13 09:00)
DX: I48.91 Unspecified atrial fibrillation (principal); I48.92 Unspecified atrial flutter; I11.0 Hypertensive heart disease with heart failure; I50.9 Heart failure, unspecified; I42.9 Cardiomyopathy, unspecified; I44.0 Atrioventricular block, first degree; G47.33 Obstructive sleep apnea (adult) (pediatric)
CPT/HCPCS: 92960; 93005; 93010; J2405; J2704

== ENCOUNTER → 2021-11-01 09:58 | Outpatient (BNVA) | payer OTHER, MEDICAID, SELFPAY | PROVIDERS: PCP Nurse Practitioner; Referring Provider Nurse Practitioner; Visit Provider Internal Medicine Cardiovascular Disease | DX: I48.91 Unspecified atrial fibrillation (principal); I42.9 Cardiomyopathy, unspecified; I50.9 Heart failure, unspecified | CPT/HCPCS: 93005; 99214; 99213 ==

== ENCOUNTER 2021-11-01 10:00 | Outpatient (CLI) | payer OTHER, SELFPAY ==
--- NOTE | 2021-11-01 10:00 | RT.EKG_ITS ---
APPROVED REPORT Exam: Resting ECG Reason for Exam: afib Patient Location: O HR:111 bpm ECG Measurements Heart Rate 111 AXIS KS [id number] P [id number] QRSd 161 QRS -61 QT 425 T 3 QTc 578 Conclusion Afib/flutter No further rhythm analysis attempted due to paced rhythm RBBB and LAFB...QRSd >120mS, axis(-40,240)
== END 2021-11-01 10:01 | disposition home or self-care (01) ==
LOC: DI.CARD 10:02
PROVIDERS: PCP Nurse Practitioner; Visit Provider Internal Medicine Cardiovascular Disease
DX: I48.91 Unspecified atrial fibrillation (principal)
CPT/HCPCS: 93010

== ENCOUNTER 2021-11-21 14:16 | Outpatient (CLI) | payer OTHER, MEDICAID, SELFPAY ==
[2021-11-21 13:14] LABS: Abs Immature Grans 0.01 10^3/uL (0.0-0.06); Absolute Basophil Count 0.04 10^3/uL (0.0-0.2); Absolute Eosinophil Count 0.13 10^3/uL (0.0-0.7); Absolute Lymphocyte Count 0.94 10^3/uL (1.2-3.4); Absolute Monocyte Count 0.63 10^3/uL (0.1-0.8); Basophils % 0.8; Eosinophils % 2.6; HCT 41.1 % (40.0-50.0); HGB 13.9 g/dL (13.5-17.5); Immature Grans % 0.2; Lymphocytes % 18.6; MCH 29.7 pg (27.0-33.0); MCHC 33.8 % (32.0-36.0); MCV 88 fL (80-95); MPV 9.1 fL (8.0-11.0); Monocytes % 12.5; Neutrophils % 65.3; Platelet Count 193 10^3/uL (130-400); RBC 4.68 10^6/uL (4.36-5.78); RDW 13.9 % (11.8-14.1); RDW-SD 44.4 fL; WBC 5.05 10^3/uL (4.4-10.8)
[2021-11-21 13:41] LABS: Ferritin 60 ng/mL (26-388)
[2021-11-21 13:55] LABS: Iron 66 ug/dL (65-175); Total Iron Binding Capacity 360 ug/dL (250-450); Transferrin Sat 18 % (20-55)
== END 2021-11-21 14:17 | disposition home or self-care (01) ==
LOC: LBO 14:19
PROVIDERS: Visit Provider Internal Medicine Medical Oncology
DX: D50.0 Iron deficiency anemia secondary to blood loss (chronic) (principal)
CPT/HCPCS: 36415; 82728; 83540; 83550; 85025

== ENCOUNTER 2022-01-23 02:44 | Outpatient (CLI) | payer OTHER, MEDICAID, SELFPAY ==
[2022-01-23 13:14] LABS: Abs Immature Grans 0.03 10^3/uL (0.0-0.06); Absolute Basophil Count 0.03 10^3/uL (0.0-0.2); Absolute Eosinophil Count 0.11 10^3/uL (0.0-0.7); Absolute Monocyte Count 0.71 10^3/uL (0.1-0.8); Absolute Neutrophil Count 3.61 10^3/uL (1.2-6.7); Basophils % 0.5; HGB 14.3 g/dL (13.5-17.5); Immature Grans % 0.5; Lymphocytes % 19.7; MCH 30.8 pg (27.0-33.0); MCHC 34.9 % (32.0-36.0); MCV 88 fL (80-95); MPV 8.8 fL (8.0-11.0); Monocytes % 12.7; Neutrophils % 64.6; Platelet Count 169 10^3/uL (130-400); RBC 4.65 10^6/uL (4.36-5.78); RDW 12.8 % (11.8-14.1); RDW-SD 41.1 fL; WBC 5.59 10^3/uL (4.4-10.8)
[2022-01-23 13:37] LABS: Iron 86 ug/dL (65-175); Total Iron Binding Capacity 371 ug/dL (250-450); Transferrin Sat 23 % (20-55)
[2022-01-23 13:44] LABS: Ferritin 33 ng/mL (26-388)
== END 2022-01-23 02:45 | disposition home or self-care (01) ==
LOC: LBO 02:44
PROVIDERS: Nurse Practitioner Adult Health; Visit Provider Internal Medicine Medical Oncology
DX: Z86.2 Personal history of diseases of the blood and blood-forming organs and certain disorders involving the immune mechanism (principal)
CPT/HCPCS: 36415; 82728; 83540; 83550; 85025

== ENCOUNTER → 2022-02-09 13:34 | Outpatient (BNVA) | payer OTHER, MEDICAID, SELFPAY | PROVIDERS: Visit Provider Internal Medicine Cardiovascular Disease | DX: I48.19 Other persistent atrial fibrillation (principal); D64.9 Anemia, unspecified; I10 Essential (primary) hypertension; I42.9 Cardiomyopathy, unspecified | CPT/HCPCS: 99214 ==

== ENCOUNTER → 2022-02-09 13:35 | Outpatient (BNVA) | payer OTHER, MEDICAID, SELFPAY | PROVIDERS: Referring Provider Nurse Practitioner; Visit Provider Nurse Practitioner Gerontology | DX: R35.1 Nocturia (principal); N40.1 Benign prostatic hyperplasia with lower urinary tract symptoms | CPT/HCPCS: 51798; 99214 ==

== ENCOUNTER 2022-03-17 10:26 | Outpatient (REF) | payer OTHER, MEDICAID, SELFPAY ==
--- NOTE | 2022-03-17 13:05 | SKI_PTH ---
PATIENT: Moe Barahona JR LOC: [facility]#:[id number] AGE/SX: 81/M ROOM: RE03/17/[address]: Jose Herrera DO : 1940 BED: DIS: 03/17/2022 SPEC #: [id number] RECD: 03/20/22 13:04 STATUS: LIZZ REQ #: [id number] JONATHON: 03/17/22 13:[address]: Jose Herrera DEPT: Surgical Specimen RECD BY: Johanna Cano ENTERED: 03/20/22 13:05 SP TYPE: SKI ALEXANDER DR: Stefanie Hoffman APRN Tissues: 1 - SKIN BIOPSY(SHAVE/PUNCH) Procedures: SKIN LEVEL 4 Comments: [id number]
== END 2022-03-17 10:27 | disposition home or self-care (01) ==
LOC: LBN 10:26
PROVIDERS: PCP Nurse Practitioner; Visit Provider Otolaryngology Otolaryngology/Facial Plastic Surgery
DX: L82.0 Inflamed seborrheic keratosis (principal)
CPT/HCPCS: 88305

== ENCOUNTER 2022-04-17 03:15 | Outpatient (CLI) | payer OTHER, MEDICAID, SELFPAY ==
[2022-04-17 12:47] LABS: Abs Immature Grans 0.03 10^3/uL (0.0-0.06); Absolute Basophil Count 0.05 10^3/uL (0.0-0.2); Absolute Eosinophil Count 0.11 10^3/uL (0.0-0.7); Absolute Monocyte Count 0.66 10^3/uL (0.1-0.8); Absolute Neutrophil Count 3.46 10^3/uL (1.2-6.7); Basophils % 0.9; HCT 41.5 % (40.0-50.0); HGB 14.7 g/dL (13.5-17.5); Immature Grans % 0.5; Lymphocytes % 21.8; MCH 31.6 pg (27.0-33.0); MCHC 35.4 % (32.0-36.0); MCV 89 fL (80-95); MPV 9.1 fL (8.0-11.0); Neutrophils % 62.8; Platelet Count 189 10^3/uL (130-400); RBC 4.65 10^6/uL (4.36-5.78); RDW 12.5 % (11.8-14.1); RDW-SD 40.8 fL; WBC 5.51 10^3/uL (4.4-10.8)
[2022-04-17 13:09] LABS: Iron 130 ug/dL (65-175); Total Iron Binding Capacity 354 ug/dL (250-450); Transferrin Sat 37 % (20-55)
[2022-04-17 13:23] LABS: Ferritin 166 ng/mL (26-388)
== END 2022-04-17 03:16 | disposition home or self-care (01) ==
PROVIDERS: PCP Nurse Practitioner; Visit Provider Nurse Practitioner Adult Health
DX: D50.0 Iron deficiency anemia secondary to blood loss (chronic) (principal)
CPT/HCPCS: 36415; 82728; 83540; 83550; 85025

== ENCOUNTER 2022-07-10 03:16 | Outpatient (CLI) | payer OTHER, SELFPAY ==
[2022-07-10 09:52] LABS: Abs Immature Grans 0.02 10^3/uL (0.0-0.06); Absolute Basophil Count 0.06 10^3/uL (0.0-0.2); Absolute Eosinophil Count 0.14 10^3/uL (0.0-0.7); Absolute Lymphocyte Count 0.96 10^3/uL (1.2-3.4); Absolute Monocyte Count 0.71 10^3/uL (0.1-0.8); Absolute Neutrophil Count 3.95 10^3/uL (1.2-6.7); Eosinophils % 2.4; HGB 14.5 g/dL (13.5-17.5); Immature Grans % 0.3; Lymphocytes % 16.4; MCH 30.8 pg (27.0-33.0); MCHC 35.4 % (32.0-36.0); MCV 87 fL (80-95); MPV 9.1 fL (8.0-11.0); Monocytes % 12.2; Neutrophils % 67.7; Platelet Count 195 10^3/uL (130-400); RBC 4.71 10^6/uL (4.36-5.78); RDW 12.2 % (11.8-14.1); WBC 5.84 10^3/uL (4.4-10.8)
[2022-07-10 10:46] LABS: Ferritin 47 ng/mL (26-388)
[2022-07-10 11:18] LABS: Iron 118 ug/dL (65-175); Total Iron Binding Capacity 365 ug/dL (250-450); Transferrin Sat 32 % (20-55)
== END 2022-07-10 03:17 | disposition home or self-care (01) ==
PROVIDERS: PCP Nurse Practitioner; Visit Provider Nurse Practitioner Adult Health
DX: D50.0 Iron deficiency anemia secondary to blood loss (chronic) (principal)
CPT/HCPCS: 36415; 82728; 83540; 83550; 85025

== ENCOUNTER → 2022-08-15 09:21 | Outpatient (BNVA) | payer OTHER, MEDICAID, SELFPAY | PROVIDERS: PCP Nurse Practitioner; Visit Provider Nurse Practitioner Gerontology | DX: N40.1 Benign prostatic hyperplasia with lower urinary tract symptoms (principal); R39.89 Other symptoms and signs involving the genitourinary system | CPT/HCPCS: 51798; 99213 ==

== ENCOUNTER 2022-08-23 01:58 | Outpatient (CLI) | payer OTHER, MEDICAID, SELFPAY ==
--- NOTE | 2022-08-23 07:31 | DI.US_ITS ---
APPROVED REPORT EXAM: Comprehensive 2D, Doppler, and color-flow Echocardiogram Other Information Study Quality: Fair Conclusion Normal left ventricular wall thickness and chamber size. Left ventricular ejection fraction is 25 to 30% with global hypokinesis Right ventricle is normal in size and systolic function The left atrium is moderately dilated. The right atrium is mildly dilated Aortic valve is calcified, probably trileaflet. There is moderate aortic regurgitation Mild mitral annular calcification. Mild mitral regurgitation Normal tricuspid valve with mild regurgitation. Estimated right ventricular systolic pressure is 32 mmHg Wall motion Left Ventricle The left ventricle is normal size. Left ventricular systolic function is moderately decreased. There is normal left ventricular wall thickness. There is global hypokinesis of the left ventricle. There i s no ventricular septal defect visualized. LVEF is 25-30%. Right Ventricle The right ventricle is normal size. The right ventricular systolic function is normal. The RVSP is 31 .9_ mmHg. Atria Left atrium is moderately dilated. Right atrium is mildly dilated. The interatrial septum is intact with no evidence for an atrial septal defect. Aortic Valve Aortic valve is calcified. Aortic valve is probably trileaflet. There is no aortic valvular stenosis. Moderate aortic regurgitation. Mitral Valve Mild mitral annular calcification. No evidence of mitral valve stenosis. Mild mitral regurgitation. Tricuspid Valve The tricuspid valve is normal in structure. There is no tricuspid valve stenosis. Mild tricuspid regu rgitation. Pulmonic Valve The pulmonary valve is normal in structure. There is no pulmonic valvular stenosis. There is no pulmo steph valvular regurgitation. Great Vessels The aortic root is normal in size. The ascending aorta is normal in size. Aortic arch is normal in c aliber. IVC is normal in size and collapses >50% with inspiration. Pericardium There is no pericardial effusion. 2D Dimensions IVSD d PLAX 0.68 cm M: 0.6-1.2 LV Vol A2C d MOD 128.6 mL LVPW d PLAX 0.71 cm M: 0.6 - 1.2 LV Vol A4C d MOD 163.9 mL LVID d PLAX 5.17 cm M: 4.2 - 5.8 LA vol/ BSA A4C s A-L 38.3 mL/m2 LVDs 4.60 cm M: 2.5 - 4.0 LA Area A4C s MOD 23.92 cm2 Ao Root d 3.46 cm M: 3.1 - 3.7 LV EF A4C MOD 30.5 % Ao Asc Diam d 3.49 cm M: 2.6 - 3.4 LV EF A2C MOD 30.1 % LV EF Teichholz 23.0 % LV EF Biplane MOD 26.3 % LVEF (Diez's) 26.34 % M: 52 - 72 SV 38.41 mL LV Volume 111.17 mL M: 62 - 150 SV Index 20.15 mL/m2 LV Volume Index 58.20 mL/m2 M: 34 - 74 LV Vol Biplane MOD 145.8 mL FS 10.55 % M-Mode TAPSE 1.56 cm (M/F) >1.7 LV Diastology MV E' medial 0.073 (>0.07 m/s) MV E Vmax 0.87 (0.4-1.3 m/s) LV E/e MED 11.85 (<14) MV E' lateral 0.077 (>0.1 m/s) LV E/e LAT 11.25 (<14) MV E/E' medial 11.87 MV E/E' lateral 11.27 Aortic Valve LVOT Area 3.90 cm2 AoV Area Vmax 2.98 cm2 LVOT Vmax 0.88 m/s AoV Area/ BSA (Vmax) 1.56 cm2/m2 LVOT Mean Elder. 0.70 m/s JODIE Mean Elder. 3.25 cm2 LVOT Peak Grad 3.1 mmHg JODIE Mean Elder. Index 1.71 cm2/m2 LVOT Mean Grad 2.1 mmHg AR DT 2117 msec LVOT VTI 0.156 m AR PHT 614 msec LVOT Diam s 2.20 cm AoV Vmax 1.14 m/s Velocity Ratio 0.77 AoV Mean Elder. 0.84 m/s AoV Peak Grad 5.2 mmHg LVOT SV 60.82 mL AoV Mean Grad 3.1 mmHg AoV VTI 0.208 m AoV Area VTI 2.93 cm2 AoV Area/ BSA (VTI) 1.54 cm/m2 Mitral Valve MV DT 170 (160-240 msec) MV PHT 49 msec MV Area PHT 4.47 cm2 Pulmonary Valve PV Vmax 0.59 (0.5-1.5 m/s) RVOT Peak Gr. 0.42 mmHg PV Peak Grad 1.4 mmHg RVOT Mean Gr. 0.25 mmHg PV Mean Grad 1.0 mmHg RVOT VTI 0.065 m PV VTI 0.129 m RVOT Vmax 0.32 m/s Tricuspid Valve TR Peak Grad 28.9 mmHg TR Vmax 2.69 m/s RA Pressure 3.00 mmHg RVSP (TR) 31.9 mmHg
== END 2022-08-23 02:18 ==
PROVIDERS: PCP Nurse Practitioner; Visit Provider Internal Medicine Cardiovascular Disease
DX: I50.9 Heart failure, unspecified (principal)
CPT/HCPCS: 93306

== ENCOUNTER → 2022-08-29 09:15 | Outpatient (BNVA) | payer OTHER, MEDICAID, SELFPAY | PROVIDERS: PCP Nurse Practitioner; Visit Provider Internal Medicine Cardiovascular Disease | DX: I48.21 Permanent atrial fibrillation (principal); Z79.01 Long term (current) use of anticoagulants; I11.0 Hypertensive heart disease with heart failure; I42.9 Cardiomyopathy, unspecified; I50.9 Heart failure, unspecified | CPT/HCPCS: 99214 ==

== ENCOUNTER 2022-10-26 04:28 | Outpatient (CLI) | payer OTHER, MEDICAID, SELFPAY ==
--- NOTE | 2022-10-26 16:09 | W.PFT ---
Date of service: 10/26/22 Time of Service: 08:07 Pulmonary Function Test Result Indications: Amiodarone therapy Interpretation Spirometry: There is no airflow limitation. There is no significant bronchodilator response. The FVC is low. Lung Volumes: Normal lung volumes Diffusion Capacity: Normal diffusion Airway Pressure: Normal airways resistance Impression Normal pulmonary function testing. The low FVC is likely pseudo-restriction from obesity. Note: When compared to 03/19/18, there is decrease in FEV1 and FVC, however lung volumes and diffusion remain stable. Clinical Correlation therefore is recommended.
== END 2022-10-26 04:29 | disposition home or self-care (01) ==
LOC: RT 04:29
PROVIDERS: PCP Nurse Practitioner; Visit Provider Physician Assistant
DX: Z51.81 Encounter for therapeutic drug level monitoring (principal)
CPT/HCPCS: 94060; 94726; 94729

== ENCOUNTER 2022-11-06 08:40 | Observation (INO) | payer OTHER, MEDICAID, SELFPAY ==
[2022-11-06] VITALS (102 sets, daily range): BP systolic 110–156; BP diastolic 66–107; PULSE 56–107; RESP 10–32; TEMP 35.9–36.9; O2SAT 92–98
--- NOTE | 2022-11-06 08:45 | RT.EKG_ITS ---
APPROVED REPORT Exam: Resting ECG Reason for Exam: dizzy Patient Location: E HR:84 bpm ECG Measurements Heart Rate 84 AXIS NH [id number] P [id number] QRSd 165 QRS -57 QT 464 T 17 QTc 549 Conclusion Atrial fibrillation...V-rate 68-104 Slight QRS widening, otherwise appropriate intervals No ST segment or T wave abnormalities to suggest occlusive RI
--- NOTE | 2022-11-06 08:46 | ED.GENADUL_ITS ---
Discharge Plan Disposition Patient Disposition: Admit to [facility] Condition: Fair Discharge Details Chief Complaint: Dizzy/Sync Clinical Impression: Pre-syncope, Atrial fibrillation, Cardiomyopathy, Iron deficiency anemia due to chronic blood loss Primary Care Provider: Stefanie Hoffman ED Provider: Noa Ash Home Meds and New Rx's Prescriptions: No Action fluticasone propionate 50 mcg/actuation spray,suspension 2 spray intranasal DAILY Qty: 16 12RF Patient Comments: no longer taking Rx Instructions: administer into each nostril hydrocortisone [Anusol-HC] 2.5 % cream with perineal applicator 1 applic CO BID-QID PRN (Reason: hemorrhoids) Qty: 30 3RF Patient Comments: no. longer taking gabapentin 100 mg capsule 100 mg PO QHS Qty: 30 3RF valsartan 160 mg tablet 160 mg PO DAILY Qty: 90 3RF hydrocortisone [Anusol-HC] 2.5 % cream with perineal applicator 1 applic CO BID-QID PRN (Reason: hemorrhoids) Qty: 30 3RF omeprazole 20 mg capsule,delayed release(DR/EC) 20 mg PO BID Qty: 180 3RF furosemide 40 mg tablet 40 mg PO BID Qty: 180 3RF Xarelto 20 mg tablet 20 mg PO DAILY Qty: 90 4RF Patient Comments: no longer taking Rx Instructions: must administer with evening meal amiodarone 200 mg tablet 200 mg PO BID Patient Comments: TAKE TWO TABLETS BY MOUTH TWICE A DAY FOR 14 DAYS THEN TWO TABLETS DAILY FOR 14 DAYS THEN ONE TABLET DAILY benzonatate 200 mg capsule 200 mg PO PRN PRN Patient Comments: TAKE ONE CAPSULE BY MOUTH THREE TIMES A DAY NEEDED FOR COUGH spironolactone 25 mg tablet 25 mg PO DAILY Patient Comments: TAKE ONE TABLET BY MOUTH EVERY DAY Xarelto 20 mg tablet 20 mg PO DAILY Patient Comments: TAKE ONE TABLET BY MOUTH EVERY DAY MUST TAKE WITH EVENING MEAL metoprolol succinate 50 mg tablet extended release 24 hr 50 mg PO DAILY Medical Decision Making 81yo M with hx of afib on xarelto, cardiomyopathy with CHF EF ~30%, HTN, iron deficiency anemia, presenting for one day of blurred vision and dizziness. History from patient and ex- at bedside. Reviewed available notes including recent [facility] [place] cardiology visit 08/29/22 and oncology 07/17/22. Symptom onset yesterday at noon, associated nausea/vomiting, vision changes have resolved but dizziness persists. No indication of GI bleed on history. Difficult to sushant cterize nature of dizziness though does seem more presyncopal than vertiginous. Vital signs and physical exam reassuring, normal neurologic exam with no dysmetria. Not septic. Low suspicion for stroke or intracranial bleed; will further evaluate with non-contrast CT. Benign abdominal exam and no c/o abdominal pain, low suspicion for acute intraabdominal process, would not pursue CT imaging of abd/pelvis. EKG (see separately documented report) with afib with no RVR, no concerning ST segment or T wave abnormalities to suggest occlusive PA, no concerning changes from prior 10/13/21. IV zofran for nausea, cautions 250cc IVFB given reduced EF. Labs ordered and reviewed; CBC reassuring with no anemia, CMP with mild hyponatremia to 133, Cr 1.4 (normal baseline on record review), initial troponin negative. UA not infected. CT independently reviewed, agree with radiology read below; no acute findings including no intracranial bleeding or infarct. Delta troponin normal. Orthostatic vital signs normal. However, on reassessment patient again dizzy with standing, presyncope, unsteady on his feet, potential fall risk, . Reassuring ED workup but with persistent symptoms and age warrants admission for further workup and management. Accepted by hospitalist and awaiting and transfer to the floor. Imaging Data Radiologic Study: Imaging: CT Scan Radiologist's impression: IMPRESSION: No acute intracranial findings on this noninfused CT scan of the brain. Prominent periventricular white matter hypodensity consistent with chronic small vessel disease again noted. No obvious acute infarct. No intracranial hemorrhage evident. Incidentally noted is some air within the subcutaneous fat on both sides of the face anterior to the maxillary sinuses. Appearing to be within vessels. This of questionable significance. Lab Data Lab results narrative: Laboratory Tests Range/Units 11/06/22 11/06/22 11/06/22 09:07 09:07 09:07 WBC (4.4-10.8) 10^3/uL 6.16 RBC (4.36-5.78) 10^6/uL 4.76 Hgb (13.5-17.5) g/dL 15.3 Hct (40.0-50.0) % 42.1 MCV (80-95) fL 88 MCH (27.0-33.0) pg 32.1 MCHC (32.0-36.0) % 36.3 H RDW (11.8-14.1) % 12.1 Plt Count (130-400) 10^3/uL 208 MPV (8.0-11.0) fL 9.2 Immature Gran % 0.3 Neutrophils % 72.4 Lymphocytes % 13.5 Monocytes % 11.7 Eosinophils % 1.6 Basophils % 0.5 Nucleated RBC % (0.0-0.3) % 0.0 Absolute Neutrophils (1.2-6.7) 10^3/uL 4.46 Absolute Lymphocytes (1.2-3.4) 10^3/uL 0.83 L Absolute Monocytes (0.1-0.8) 10^3/uL 0.72 Absolute Eosinophils (0.0-0.7) 10^3/uL 0.10 Absolute Basophils (0.0-0.2) 10^3/uL 0.03 PT (9.3-11.0) sec 14.3 H INR (0.9-1.1) 1.4 H APTT (21.5-31.9) sec 35.4 H Sodium (136-145) mmol/L 133 L Potassium (3.5-5.1) mmol/L 5.0 Chloride (98-107) mmol/L 96 L Carbon Dioxide (21.0-32.0) mmol/L 27.1 Anion Gap (3-11) mmol/L 9.9 BUN (7-18) mg/dL 24 H Creatinine (0.70-1.30) mg/dL 1.4 H Est GFR (CKD-EPI 2020) (mL/min/1.73m2) 50.81 Glucose (74-106) mg/dL 112 H Calcium (8.5-10.1) mg/dL 9.1 Magnesium (1.8-2.4) mg/dL 2.2 Total Bilirubin (0.2-1.0) mg/dL 1.0 AST (15-37) U/L 21 ALT (16-63) U/L 24 Alkaline Phosphatase (46-116) U/L 87 Troponin I (<or=60) ng/L < 50 Total Protein (6.4-8.2) g/dL 7.3 Albumin (3.4-5.0) g/dL 4.0 Urine Color (Yellow) Urine Clarity (Clear) Urine pH (5-8) Ur Specific [place] (1.005-1.025) Urine Protein (Negative) mg/dL Urine Ketones (Negative) mg/dL Urine Blood (Negative) Urine Nitrite (Negative) Urine Bilirubin (Negative) Urine Urobilinogen (Up to 0.2) mg/dL Ur Leukocyte Esterase (Negative) Urine Glucose (Negative) mg/dL Range/Units 11/06/22 10:15 WBC (4.4-10.8) 10^3/uL RBC (4.36-5.78) 10^6/uL Hgb (13.5-17.5) g/dL Hct (40.0-50.0) % MCV (80-95) fL MCH (27.0-33.0) pg MCHC (32.0-36.0) % RDW (11.8-14.1) % Plt Count (130-400) 10^3/uL MPV (8.0-11.0) fL Immature Gran % Neutrophils % Lymphocytes % Monocytes % Eosinophils % Basophils % Nucleated RBC % (0.0-0.3) % Absolute Neutrophils (1.2-6.7) 10^3/uL Absolute Lymphocytes (1.2-3.4) 10^3/uL Absolute Monocytes (0.1-0.8) 10^3/uL Absolute Eosinophils (0.0-0.7) 10^3/uL Absolute Basophils (0.0-0.2) 10^3/uL PT (9.3-11.0) sec INR (0.9-1.1) APTT (21.5-31.9) sec Sodium (136-145) mmol/L Potassium (3.5-5.1) mmol/L Chloride (98-107) mmol/L Carbon Dioxide (21.0-32.0) mmol/L Anion Gap (3-11) mmol/L BUN (7-18) mg/dL Creatinine (0.70-1.30) mg/dL Est GFR (CKD-EPI 2020) (mL/min/1.73m2) Glucose (74-106) mg/dL Calcium (8.5-10.1) mg/dL Magnesium (1.8-2.4) mg/dL Total Bilirubin (0.2-1.0) mg/dL AST (15-37) U/L ALT (16-63) U/L Alkaline Phosphatase (46-116) U/L Troponin I (<or=60) ng/L Total Protein (6.4-8.2) g/dL Albumin (3.4-5.0) g/dL Urine Color (Yellow) Yellow Urine Clarity (Clear) Clear Urine pH (5-8) 7.0 Ur Specific [place] (1.005-1.025) 1.015 Urine Protein (Negative) mg/dL Negative Urine Ketones (Negative) mg/dL Negative Urine Blood (Negative) Negative Urine Nitrite (Negative) Negative Urine Bilirubin (Negative) Negative Urine Urobilinogen (Up to 0.2) mg/dL 0.2 Ur Leukocyte Esterase (Negative) Negative Urine Glucose (Negative) mg/dL Negative HPI General Mode of arrival: ambulatory . Date/Time Provider Initiated Documentation: 11/06/22 08:45 . Limitations to Documentation: no limitations . Information obtained by: patient and family . HPI Narrative: 81yo M with hx of afib on xarelto, cardiomyopathy with CHF EF ~30%, HTN, iron deficiency anemia, presenting for one day of blurred vision and dizziness. Symptoms started yesterday around noon while working at his desk. Worse with am bulation. Waxing and waning in severity. Associated nausea with one episode of nonbloody nonbilious emesis yesterday. No bloody or dark stool. No syncope. No numbness/tingling/weakness. Denies vertigo, denies presyncope, difficult to characterize exact nature of 'dizzy' symptom. Blurred vision was bilateral and has since improved, states normal now. He is otherwise in his usual state of he alth with no chest pain, shortness of breath, LE edema, recent falls, abdominal pain, or other concerns. Related Data Home Medications Medication Instructions Recorded Confirmed fluticasone propionate 50 2 spray intranasal DAILY #16 grams 11/21/21 08/29/22 mcg/actuation nasal spray,suspension hydrocortisone 2.5 % topical cream 1 applic CO BID-QID PRN 05/17/22 08/29/22 with perineal applicator hemorrhoids #30 grams (Anusol-HC) valsartan 160 mg tablet 160 mg PO DAILY #90 tabs 05/17/22 11/06/22 omeprazole 20 mg capsule,delayed 20 mg PO BID #180 caps 06/13/22 11/06/22 release gabapentin 100 mg capsule 100 mg PO QHS #30 caps 08/22/22 11/06/22 hydrocortisone 2.5 % topical cream 1 applic CO BID-QID PRN 08/22/22 08/29/22 with perineal applicator hemorrhoids #30 grams (Anusol-HC) furosemide 40 mg tablet 40 mg PO BID #180 tabs 09/04/22 11/06/22 rivaroxaban 20 mg tablet (Xarelto) 20 mg PO DAILY #90 tabs 10/09/22 amiodarone 200 mg tablet 200 mg PO BID 11/06/22 11/06/22 benzonatate 200 mg capsule 200 mg PO PRN PRN 11/06/22 11/06/22 metoprolol succinate 50 mg 50 mg PO DAILY 11/06/22 11/06/22 tablet,extended release 24 hr rivaroxaban 20 mg tablet (Xarelto) 20 mg PO DAILY 11/06/22 11/06/22 spironolactone 25 mg tablet 25 mg PO DAILY 11/06/22 11/06/22 Previous Rx's Medication Instructions Recorded fluticasone propionate 50 2 spray intranasal DAILY #16 grams 11/21/21 mcg/actuation nasal spray,suspension hydrocortisone 2.5 % topical cream 1 applic CO BID-QID PRN 05/17/22 with perineal applicator hemorrhoids #30 grams (Anusol-) valsartan 160 mg tablet 160 mg PO DAILY #90 tabs 05/17/22 omeprazole 20 mg capsule,delayed 20 mg PO BID #180 caps 06/13/22 release gabapentin 100 mg capsule 100 mg PO QHS #30 caps 08/22/22 hydrocortisone 2.5 % topical cream 1 applic CO BID-QID PRN 08/22/22 with perineal applicator hemorrhoids #30 grams (Anusol-HC) furosemide 40 mg tablet 40 mg PO BID #180 tabs 09/04/22 rivaroxaban 20 mg tablet (Xarelto) 20 mg PO DAILY #90 tabs 10/09/22 Allergies Allergy/AdvReac Type Severity Reaction Status Date / Time No Known Drug Allergies Allergy Verified 08/22/22 10:28 General Stated Complaint: Dizzy/Sync RACHELLE: 3 Review of Systems Narrative: see HPI PFSH All Active Problems (Updated 11/06/22 @ 14:12 by Noa Ash MD) Pre-syncope (Acute) Congestive heart failure (Chronic) Iron deficiency anemia due to chronic blood loss (Acute) 06/21/20 [facility] Oncology- arranging for venofer qw x5 02/06/21 Venofer x3 Atrial fib/flutter, transient (Acute) Anemia (Chronic) At risk for amiodarone toxicity with half-way use (Acute) Pre-op evaluation (Acute) Cataract (Chronic) First degree atrioventricular block (Acute) Dyspnea (Acute) Essential hypertension (Acute) Wheeze (Acute) Cough (Acute) Poor compliance with CPAP treatment (Acute) 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 Jama Abreu MD, no further colonoscopies needed Diverticulosis (Acute) 05/27/18 Found in the entire examined [place] [facility] [place] Hiatal hernia (Chronic) 05/27/18 medium sized 35-40cm seen with Upper GI[place] [place] Obstructive sleep apnea (Acute 07/20/15) CPAP AHI 28.6 Trish Hernandez Nocturia more than twice per night (Acute 10/20/16) History of alcohol abuse (Acute 05/20/15) none since Feb 2015 12-pack daily and .5-1 gal Gin/wk Heme positive stool (Acute 05/19/15) negative GI w/u [facility] [place]; no further w/u recommended Elevated serum creatinine (Acute 10/20/16) Chronic anticoagulation (Acute 05/19/15) Coumadin Switched to Eliquis 02/2016 Cardiomyopathy (Acute 05/19/15) LVEF 25-30% by ECHO 05/17/15; echo 08/2015 EF 50-55% Dr Soni follows Atrial fibrillation (Acute 05/17/15) Gastrointestinal hemorrhage (Acute) Medical History Atrial fibrillation Chronic anticoagulation eliquis Helicobacter pylori gastritis Helicobacter pylori gastritis (01/31/15) History of alcohol abuse Noncompliance with medication regimen (05/19/15) ALBERTO (obstructive sleep apnea) Personal history of tobacco use (05/20/15) none since Jan 2015 Daily cigars Poor dentition Poor dentition (12/30/15) Tobacco abuse Surgical History Colonoscopy - IV Sedation (02/08/15) w/ BX Dr. Lee sigmoid diverticulosis, Final Path Diagnosis: Inflammatory polyp Colonoscopy - MAC (09/12/17) EGD - IV Sedation (01/31/15) Dr Lee Final Pathologic Diagnosis: Gastric Antrum stomach biopsy -Gastric antral mucosa with H. Pylori gastritis and focal intestianl metaplasia -H. Pylori seen on HE stain Gastric body stomach biopsy -Gastric body mucosa with H. Pylori gastritis -H. Pylori seen on HE stain Addendum to above path diagnosis: Biopsy Esophagus - Gastric fundic type mucosa with active erosive gastritis. EGD - MAC (09/12/17) 05/27/18 Colonoscopy- multiple diverticula, internal hemorrhoids, 2-sessile polyps in ascending colon3-5mm size, diverticulosis in the entire examined colon H/O endoscopy History of endoscopy (05/28/18) 05/27/18 Upper GI-medium sized hiatal hernia present at 35-40cm, normal esophagus, Irregular Z-line at 35 cm from incisors, normal stomach and duodenum 05/28/18-video capsule [id number] duodenum,jejunum,and ileum. hx previous rib fxs Repair of inguinal hernia right; years ago rib fx (11/22/08) S/P cataract extraction and insertion of intraocular lens (10/08/19) right L done 11/03/19-[facility] [place],Dr Monte small bowel enteroscopy (03/22/15) [facility] [place] Dr. Champagne Family History Mother No problems noted. Father Personal history of malignant neoplasm Sister Parkinson disease Sister No problems noted. Sister No problems noted. Brother Personal history of malignant neoplasm Brother No problems noted. Social History Smoking/Tobacco Use Status: Former Tobacco Use Quit Date: 04/30/14 Tobacco: How many years used: 60 Smoking risk assessment performed?: Yes Alcohol Intake: current Alcohol Intake frequency: 0-2 drinks per day Alcohol type: beer Drug use: Never Substance use type: does not use What type of physical activity do you participate in: none Do you feel safe at home: Yes Do you feel safe in your relationship?: Yes Additional Social history: unable to assess [facility] Exam Narrative Exam Narrative: General: Alert, well appearing, well nourished, in no acute distress. Head: Normocephalic, atraumatic Neck: Trachea midline, Neck supple. ENT: MMM. No oropharygeal lesions or exudate. Cardiac: Irregular, no murmurs appreciated Resp: No respiratory distress. CTAB. Abd: Soft, non-distended, nontender : No suprapubic tenderness. No CVA tenderness. Extremities: No deformities. No peripheral edema. Neuro: GCS 15. PERRL. EOMI. Fluent speech, no dysarthria. Motor- 5/5 strength symmetric bilateral upper and lower extremities including shoulder abductors/adductors, elbow flexors/extensors, wrist flexors/extensors, finger abductors/adductors, hipflexors/extensors, knee flexors/extensors, ankle dorsiflexors and planter flexors. Sensation- Intact to light touch and symmetric multiple dermatomes including upper and lower extremities Coordination- No dysmetria on finger to nose Reflexes- 1/4 achilles & patellar, no clonus Gait/station: Normal stance. No truncal ataxia. Steady gait with equal normal steps CRANIAL NERVES: II: Pupils equal and reactive, III, IV, : EOM intact, no gaze preference or deviation, no nystagmus. V: normal sensation in V1, V2, and V3 segments bilaterally VII: no asymmetry, no nasolabial fold flattening VIII: normal hearing to speech IX, X: normal palatal elevation, no uvular deviation XI: 5/5 head turn and 5/5 shoulder shrug bilaterally XII: midline tongue protrusion
--- NOTE | 2022-11-06 09:00 | DI.CT_ITS ---
Exam(s) CT HEAD WO EXAM: CT HEAD WO CLINICAL HISTORY: subjective dizziness, normal neurologic exam. TECHNIQUE: Imaging Protocol: Axial computed tomography images with coronal and sagittal reformatted images were created and reviewed COMPARISON: CT CT HEAD CERV SPINE FACIAL WO from 04/25/2019 FINDINGS: There are no skull fractures. There is no fluid in the visualized paranasal sinuses. There is no evidence of intracranial hemorrhage, mass effect, or shift of midline structures. There are no extra-axial fluid collections. The ventricles are not enlarged or shifted and there is no blo od within the ventricular system nor within the basal cisterns. There is periventricular hypodensity consistent with chronic small vessel disease, similar to the pre vious study. No obvious acute infarct. Heavy calcification within both vertebral arteries at the skull base is again noted. Also calcification again evident within the intracavernous/supraclinoid internal carotid arteries. IMPRESSION: No acute intracranial findings on this noninfused CT scan of the brain. Prominent periventricular white matter hypodensity consistent with chronic small vessel disease again noted. No obvious acute infarct. No intracranial hemorrhage evident. Incidentally noted is some air within the subcutaneous fat on both sides of the face anterior to the maxillary sinuses. Appearing to be within vessels. This of questionable significance. Report called by myself to ER physician. RADIATION DOSE DELIVERED: 720.56mGy.cm Total DLP DATA REPOSITORY: All CT scans at this facility are submitted to the National Radiology Data Registry (NRDR) Dose Index Registry (DIR) with the [employer] ([employer]). RADIATION OPTIMIZATION: All CT scans at this facility use at least one of these dose optimization te chniques: automated exposure control; mA and/or kV adjustment per patient size (includes targeted exa ms where dose is matched to clinical indication); or iterative reconstruction.
[2022-11-06 09:21] LABS: Abs Immature Grans 0.02 10^3/uL (0.0-0.06); Absolute Basophil Count 0.03 10^3/uL (0.0-0.2); Absolute Lymphocyte Count 0.83 10^3/uL (1.2-3.4); Absolute Monocyte Count 0.72 10^3/uL (0.1-0.8); Absolute Neutrophil Count 4.46 10^3/uL (1.2-6.7); Basophils % 0.5; Eosinophils % 1.6; HCT 42.1 % (40.0-50.0); HGB 15.3 g/dL (13.5-17.5); Immature Grans % 0.3; Lymphocytes % 13.5; MCH 32.1 pg (27.0-33.0); MCHC 36.3 % (32.0-36.0); MCV 88 fL (80-95); MPV 9.2 fL (8.0-11.0); Monocytes % 11.7; Neutrophils % 72.4; Platelet Count 208 10^3/uL (130-400); RBC 4.76 10^6/uL (4.36-5.78); RDW 12.1 % (11.8-14.1); RDW-SD 39.7 fL; WBC 6.16 10^3/uL (4.4-10.8)
[2022-11-06] MEDS: Ondansetron 4 MG/2 ML VIAL IVP (09:22)
[2022-11-06] MEDS: Normal Saline 250 ML IV (09:22)
[2022-11-06 09:39] LABS: INR 1.4 (0.9-1.1); PTT Activated 35.4 sec (21.5-31.9); Prothrombin Time 14.3 sec (9.3-11.0)
[2022-11-06 09:45] LABS: ALT 24 U/L (16-63); AST 21 U/L (15-37); Alkaline Phosphatase 87 U/L (46-116); Anion Gap 9.9 mmol/L (3-11); BUN 24 mg/dL (7-18); CO2 27.1 mmol/L (21.0-32.0); CREATININE 1.4 mg/dL (0.70-1.30); Calcium 9.1 mg/dL (8.5-10.1); Chloride 96 mmol/L (98-107); Estimated GFR 50.81 (mL/min/1.73m2); Glucose 112 mg/dL (74-106); Magnesium 2.2 mg/dL (1.8-2.4); Sodium 133 mmol/L (136-145); Total Protein 7.3 g/dL (6.4-8.2); Troponin I < 50 ng/L (<or=60)
[2022-11-06 10:28] LABS: Bilirubin Negative (Negative); Blood Negative (Negative); Clarity Clear (Clear); Glucose Negative (Negative); Ketones Negative (Negative); Leukocyte Esterase Negative (Negative); Nitrite Negative (Negative); Specific Gravity 1.015 (1.005-1.025); Urobilinogen 0.2 mg/dL (Up to 0.2)
[2022-11-06 12:25] LABS: Troponin I < 50 ng/L (<or=60)
--- NOTE | 2022-11-06 13:26 | NUR.NOTE ---
Addendum entered by Kathy Hoyt RN 11/06/22 13:28: Sitting Original Note: supine
--- NOTE | 2022-11-06 19:19 | HPE_ITS ---
Date of service: 11/06/22 Time of Service: 16:00 Assessment and Plan Assessment and plan (1) Pre-syncope: Status: Acute Assessment and plan: One day of blurred vision and dizziness - no syncope, did have some nausea that has resolved, normal neuro exam, not orthostatic or evidence of infection or sep sis, labs reassuring Received 250 ml NS bolus in ED and ondansetron Recent echo EF ~ 30% Delta troponin negative No chest pain EKG Afib, normal rate, no RVR, no ST abnormality Cardiology consult (2) Essential hypertension: Status: Acute Assessment and plan: Monitor, continue home meds, metoprolol (3) Neuropathy of both feet: Status: Acute Assessment and plan: Continue gabapentin (4) Atrial fibrillation: Assessment and plan: Afib on EKG, chronic - no RVR, no chest pain - on Xarelto, continue amiodarone (5) Chronic anticoagulation: Assessment and plan: On Xarelto (6) Discharge planning issues: Status: Acute Assessment and plan: Home when medically stable Has appt with [place] [facility] [place] [address] Fernandez History of Present Illness History of Present Illness Chief Complaint: Blurred vision and dizziness Narrative: 81yo M with hx of afib on xarelto, cardiomyopathy with CHF EF ~30%, HTN, iron deficiency anemia, presenting for one day of blurred vision and dizziness. ? Symptoms started the day prior to admission around noon while he was working at his desk.? Worse with ambulation.? Waxing and waning in severity.? Associated nausea with one episode of nonbloody nonbilious emesis yesterday.? No bloody or dark stool.? No syncope.? No numbness/tingling/weakness.? Denied vertigo.? Blurred vision was bilateral and resolved quickly.? He is otherwise in his usual state of health with no chest pain, shortness of breath, LE edema, recent falls, abdominal pain, or other concerns. Normal neurologic exam. He was recently started on amiodarone buy [facility]. Admitted to the medical floor for further testing and treatment. Review of Systems All systems reviewed & are unremarkable except as noted in HPI and below PFSH All Active Problems (Updated 11/08/22 @ 08:20 by Thania Spann NP) Neuropathy of both feet (Acute) Discharge planning issues (Acute) Pre-syncope (Acute) Congestive heart failure (Chronic) Iron deficiency anemia due to chronic blood loss (Acute) 06/21/20 [facility] Oncology- arranging for venofer qw x5 02/06/21 Venofer x3 Atrial fib/flutter, transient (Chronic) Anemia (Chronic) At risk for amiodarone toxicity with emt intermediate use (Acute) Pre-op evaluation (Acute) Cataract (Chronic) First degree atrioventricular block (Acute) Dyspnea (Acute) Essential hypertension (Acute) Wheeze (Acute) Cough (Acute) Poor compliance with CPAP treatment (Acute) 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 Jama Abreu MD, no further colonoscopies needed Diverticulosis (Acute) 05/27/18 Found in the entire examined colon w[place] [facility] Hiatal hernia (Chronic) 05/27/18 medium sized 35-40cm seen with [place] Obstructive sleep apnea (Acute 07/20/15) CPAP AHI 28.6 Trish [place] Nocturia more than twice per night (Acute 10/20/16) History of alcohol abuse (Acute 05/20/15) none since Feb 2015 12-pack daily and .5-1 gal Gin/wk Heme positive stool (Acute 05/19/15) negative GI w/u [facility]; no further w/u recommended Elevated serum creatinine (Acute 10/20/16) Chronic anticoagulation (Acute 05/19/15) Coumadin Switched to Eliquis 02/2016 Cardiomyopathy (Acute 05/19/15) LVEF 25-30% by ECHO 05/17/15; echo 08/2015 EF 50-55% Dr Soni follows Atrial fibrillation (Acute 05/17/15) Gastrointestinal hemorrhage (Acute) Medical History Atrial fibrillation Chronic anticoagulation eliquis Helicobacter pylori gastritis Helicobacter pylori gastritis (01/31/15) History of alcohol abuse Noncompliance with medication regimen (05/19/15) ALBERTO (obstructive sleep apnea) Personal history of tobacco use (05/20/15) none since Jan 2015 Daily cigars Poor dentition Poor dentition (12/30/15) Tobacco abuse Surgical History Colonoscopy - IV Sedation (02/08/15) w/ BX Dr. Lee sigmoid diverticulosis, Final Path Diagnosis: Inflammatory polyp [place] [facility]) EGD - IV Sedation (01/31/15) Dr Lee Final Pathologic Diagnosis: Gastric Antrum stomach biopsy -Gastric antral mucosa with H. Pylori gastritis and focal intestianl metaplasia -H. Pylori seen on HE stain Gastric body stomach biopsy -Gastric body mucosa with H. Pylori gastritis -H. Pylori seen on HE stain Addendum to above path diagnosis: Biopsy Esophagus - Gastric fundic type mucosa with active erosive gastritis. E[place] [facility] ([place]17) 05/27/18 Colonoscopy- multiple diverticula, internal hemorrhoids, 2-sessile polyps in ascending colon3-5mm size, diverticulosis in the entire examined colon H/O endoscopy History of endoscopy (05/28/18) 05/27/18 Upper GI-medium sized hiatal hernia present at 35-40cm, normal esophagus, Irregular Z-line at 35 cm from incisors, normal stomach and duodenum 05/28/18-video capsule [id number] duodenum,jejunum,and ileum. hx previous rib fxs Repair of inguinal hernia right; years ago rib fx (11/22/08) S/P cataract extraction and insertion of intraocular lens (10/08/19) right L done 11/03/19[place] Monte small bowel enteroscopy (03/22/15) [facility] [place] Champagne Family History Mother No problems noted. Father Personal history of malignant neoplasm Sister Parkinson disease Sister No problems noted. Sister No problems noted. Brother Personal history of malignant neoplasm Brother No problems noted. Social History Smoking/Tobacco Use Status: Former Tobacco Use Quit Date: 04/30/14 Tobacco: How many years used: 60 Smoking risk assessment performed?: Yes Alcohol Intake: current Alcohol Intake frequency: 0-2 drinks per day Alcohol type: beer Drug use: Never Substance use type: does not use Housing: house What type of physical activity do you participate in: none Do you feel safe at home: Yes Do you feel safe in your relationship?: Yes Additional Social history: unable to assess [facility] Allergies and Home Medications Allergies Allergy/AdvReac Type Severity Reaction Status Date / Time No Known Drug Allergies Allergy Verified 08/22/22 10:28 Home Medications Medication Instructions Recorded Confirmed Type valsartan 160 mg tablet 160 mg PO DAILY #90 tabs 05/17/22 11/06/22 Rx furosemide 40 mg tablet 40 mg PO BID #180 tabs 09/04/22 11/06/22 Rx rivaroxaban 20 mg tablet (Xarelto) 20 mg PO DAILY #90 tabs 10/09/22 11/06/22 Rx benzonatate 200 mg capsule 200 mg PO PRN PRN Cough 11/06/22 11/06/22 History fluticasone propionate 50 2 spray intranasal DAILY PRN 11/06/22 11/06/22 History mcg/actuation nasal spray,suspension gabapentin 100 mg capsule 100 mg PO HS PRN Anxiety 11/06/22 11/06/22 History metoprolol succinate 50 mg 50 mg PO DAILY 11/06/22 11/06/22 History tablet,extended release 24 hr omeprazole 20 mg capsule,delayed 20 mg PO DAILY 11/06/22 11/06/22 History release spironolactone 25 mg tablet 25 mg PO DAILY 11/06/22 11/06/22 History amiodarone 200 mg tablet 200 mg PO 1XD #0 tabs 11/07/22 Rx Exam Const General: cooperative and no acute distress Orientation: alert, awake and oriented x3 HENMT Head: normal to inspection Ears: hearing grossly normal bilaterally and external ears normal General nose exam: external nose normal Face and sinus: normal facial exam Mouth: oral mucosae normal Eyes General: appearance normal, both eyes and all related structures Eyelids: eyelids normal EOM: EOM intact bilaterally Neck Neck: normal visual inspection Lymphatic: no lymphadenopathy noted Chest Chest: normal inspection of the chest Resp Effort & Inspection: normal respiratory effort and able to speak in complete sentences Auscultation: clear to auscultation bilaterally Cardio Rate: regular rate Rhythm: regular rhythm GI Inspection: normal to inspection Palpation: soft, not firm, no guarding, no hepatosplenomegaly, no masses and nontender Auscultation: normal bowel sounds Skin General skin exam: no rashes or lesions noted Neuro General: patient alert and patient awake Cognition: normal cognition Speech: speech normal Motor: muscle tone normal throughout Sensory Exam: no sensory deficits noted Other: GCS 15. PERRL. EOMI. Fluent speech, no dysarthria. Motor- 5/5 strength symmetric bilateral upper and lower extremities including shoulder abductors/adductors, elbow flexors/extensors, wrist flexors/extensors, finger abductors/adductors, hipflexors/extensors, knee flexors/extensors, ankle dorsiflexors and planter flexors. Sensation- Intact to light touch and symmetric multiple dermatones including upper and lower extremities Coordination- No dysmetria on finger to nose Reflexes- 1/4 achilles & patellar, no clonus Gait/station: normal gait, with walker Extrem General: normal to inspection, full ROM and capillary refill normal Psych Appearance: grossly normal Mental Status: mental status grossly normal Speech and Movement: speech and movement normal Affect: normal affect Thought Process: normal Results Labs 11/07/22 06:00 11/07/22 06:00 Labs: Laboratory Results - last 24 hr 11/06/22 11/06/22 11/06/22 09:07 09:07 09:07 WBC 6.16 RBC 4.76 Hgb 15.3 Hct 42.1 MCV 88 MCH 32.1 MCHC 36.3 H RDW 12.1 Plt Count 208 MPV 9.2 Immature Gran % 0.3 Neutrophils % 72.4 Lymphocytes % 13.5 Monocytes % 11.7 Eosinophils % 1.6 Basophils % 0.5 Nucleated RBC % 0.0 Absolute Neutrophils 4.46 Absolute Lymphocytes 0.83 L Absolute Monocytes 0.72 Absolute Eosinophils 0.10 Absolute Basophils 0.03 PT 14.3 H INR 1.4 H APTT 35.4 H Sodium 133 L Potassium 5.0 Chloride 96 L Carbon Dioxide 27.1 Anion Gap 9.9 BUN 24 H Creatinine 1.4 H Est GFR (CKD-EPI 2020) 50.81 Glucose 112 H Calcium 9.1 Magnesium 2.2 Total Bilirubin 1.0 AST 21 ALT 24 Alkaline Phosphatase 87 Troponin I < 50 Total Protein 7.3 Albumin 4.0 Urine Color Urine Clarity Urine pH Ur Specific [place] Urine Protein Urine Ketones Urine Blood Urine Nitrite Urine Bilirubin Urine Urobilinogen Ur Leukocyte Esterase Urine Glucose 11/06/22 11/06/22 10:15 12:03 WBC RBC Hgb Hct MCV MCH MCHC RDW Plt Count MPV Immature Gran % Neutrophils % Lymphocytes % Monocytes % Eosinophils % Basophils % Nucleated RBC % Absolute Neutrophils Absolute Lymphocytes Absolute Monocytes Absolute Eosinophils Absolute Basophils PT INR APTT Sodium Potassium Chloride Carbon Dioxide Anion Gap BUN Creatinine Est GFR (CKD-EPI 2020) Glucose Calcium Magnesium Total Bilirubin AST ALT Alkaline Phosphatase Troponin I < 50 Total Protein Albumin Urine Color Yellow Urine Clarity Clear Urine pH 7.0 Ur Specific [place] 1.015 Urine Protein Negative Urine Ketones Negative Urine Blood Negative Urine Nitrite Negative Urine Bilirubin Negative Urine Urobilinogen 0.2 Ur Leukocyte Esterase Negative Urine Glucose Negative Last Vital Signs Temp 36.9 C 11/06/22 15:48 Pulse 73 11/06/22 16:06 Resp 17 11/06/22 15:48 BP 156/93 H 11/06/22 15:48 Pulse Ox 95 11/06/22 15:48 Time Spent Time spent with Patient: 40-54 minutes Time was spent: preparing to see the patient(eg.review tests), obtaining and/or reviewing separately otained hiistory, ordering medications,tests, procedures, referring, communicating with other health career orientation teacher, indepentently interpreting results, counseling the patient and care coordination
[2022-11-06] MEDS: Omeprazole 20 MG CAPCR PO (20:30)
[2022-11-06] MEDS: Furosemide 40 MG TAB PO (20:30)
[2022-11-06] MEDS: Amiodarone 200 MG TAB PO (20:30)
[2022-11-06] MEDS: Meclizine 12.5 MG TAB PO (20:30)
--- NOTE | 2022-11-06 21:59 | TELEP.MEDR_ITS ---
Date of service: 11/06/22 Time of Service: 21:59 Telepharmacy Home Med Rec Allergies Allergies: No Known Drug Allergies Allergy (Verified 08/22/22 10:28) Interview Person Interviewed: Pt and Quality Quality of Interview/Accuracy of Medication List: Fair Sources Sources used to compile medication list: [employer] Medication List, Patient List and [employer] Changes made to Home Medication List: ADDITIONS: None DELETIONS: Benzonatate (duplicate, one prn order still active) Hydrocortisone (both orders) Rivaroxaban (duplicate, one order still active) CHANGES: Fluticasone 50 mcg 2 sprays intranasally qday prn Gabapentin 100 mg po hs prn anxiety Omeprazole 20 po qday Additional Notes Additional Notes: Original sig for amiodarone 200 mg- 2 tabs po bid x 14 days then 2 tabs qday x 14 days then 1 tab po qday. Pt reports he started at 2 tabs po bid, then had a cardio appt recently where he was told to start taking 1 tab po bid (current sig as entered). Pt reports he has another appt in late October where they will zap him and likely change his dose again then. Recommended Changes Recommended Changes(reason for recommendation): For estimated CrCl of 46 mL/min, recommend reducing Xarelto to 15 mg po qday. Attestation: The home medication list is now updated to the best of my knowledge and is ready to be reconciled by the provider. Please contact the [facility] Medication Reconciliation Pharmacist at for any questions.
[2022-11-07 00:07] VITALS: PULSE 93
[2022-11-07 03:53] VITALS: BP 121/75; PULSE 70; RESP 17; TEMP 36.6; O2SAT 96
[2022-11-07 07:00] VITALS: PULSE 77
[2022-11-07 07:16] LABS: Abs Immature Grans 0.04 10^3/uL (0.0-0.06); Absolute Basophil Count 0.05 10^3/uL (0.0-0.2); Absolute Eosinophil Count 0.14 10^3/uL (0.0-0.7); Absolute Lymphocyte Count 1.03 10^3/uL (1.2-3.4); Absolute Monocyte Count 0.62 10^3/uL (0.1-0.8); Absolute Neutrophil Count 4.53 10^3/uL (1.2-6.7); Basophils % 0.8; Eosinophils % 2.2; HCT 43.2 % (40.0-50.0); Immature Grans % 0.6; Lymphocytes % 16.1; MCH 31.6 pg (27.0-33.0); MCHC 34.7 % (32.0-36.0); MCV 91 fL (80-95); MPV 9.3 fL (8.0-11.0); Monocytes % 9.7; Neutrophils % 70.6; Platelet Count 194 10^3/uL (130-400); RBC 4.75 10^6/uL (4.36-5.78); RDW-SD 40.4 fL; WBC 6.41 10^3/uL (4.4-10.8)
[2022-11-07 07:19] VITALS: BP 104/63; PULSE 58; RESP 16; TEMP 36.5; O2SAT 95
[2022-11-07 07:26] LABS: BUN 26 mg/dL (7-18); CREATININE 1.8 mg/dL (0.70-1.30); Calcium 9.2 mg/dL (8.5-10.1); Chloride 95 mmol/L (98-107); Estimated GFR 37.58 (mL/min/1.73m2); Glucose 93 mg/dL (74-106); Potassium 5.1 mmol/L (3.5-5.1); Sodium 133 mmol/L (136-145)
[2022-11-07 07:34] LABS: Magnesium 2.1 mg/dL (1.8-2.4)
[2022-11-07] MEDS: Metoprolol CR 50 MG TABCR PO (08:19)
[2022-11-07] MEDS: Furosemide 40 MG TAB PO (08:19)
[2022-11-07] MEDS: Omeprazole 20 MG CAPCR PO (08:19)
[2022-11-07] MEDS: Spironolactone 25 MG TAB PO (08:19)
[2022-11-07] MEDS: Amiodarone 200 MG TAB PO (08:19)
--- NOTE | 2022-11-07 10:08 | PDOC.CMIN ---
Date of service: 11/07/22 Time of Service: 10:08 Care Management Initial Assmt Initial Assessment REASON FOR HOSPITALIZATION:: atrial fibrillation, near syncope PREVIOUS FUNCTIONAL STATUS/SOCIAL/FAMILY SUPPORTS:: kathie Rosa as he likes to be called, lives in a single family home in [place], [place] with his Shayy, his daughter and his ex-. Romeo also had a son who from cardiac disease. 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 He is independent at baseline and does not receive any community services. CURRENT FUNCTIONAL STATUS:: Romeo was sitting up in bed visiting with his when CM met with him. He was pleasant and agreeable to conversation. he stated that he has been dizzy for the past couple of days. When he is lying still he feels fine, he stated , but when he gets up he feels lightheaded and dizzy. ADVANCE DIRECTIVES:: none on file Has patient been provided with info about the portal/API?: Yes Did the patient sign up for the portal?: No CODE STATUS:: Full Code INSURANCE COVERAGE / FINANCIAL ISSUES:: [email or web address] [place] of [place] CURRENT HOME/COMMUNITY SERVICES/EQUIPMENT:: none PRIMARY CARE PHYSICIAN:: Stefanie Hoffman POTENTIAL DISCHARGE NEEDS:: follow up with PCP and plan of care PATIENT/FAMILY EDUCATION NEEDS:: Review of discharge instructions, limitations, activity, follow up plan, discuss [employer] TRANSPORTATION:: via private vehicle with family PLAN:: Anticipate Moe will be discharged home with no new services. He will follow up with his PCP and plan of care and transport with family. CM will follow and support discharge planning needs. PFSH All Active Problems (Updated 11/06/22 @ 14:12 by Noa Ash MD) Pre-syncope (Acute) Congestive heart failure (Chronic) Iron deficiency anemia due to chronic blood loss (Acute) 06/21/20 [facility] Oncology- arranging for venofer qw x5 02/06/21 Venofer x3 Atrial fib/flutter, transient (Acute) Anemia (Chronic) At risk for amiodarone toxicity with chcf use (Acute) Pre-op evaluation (Acute) Cataract (Chronic) First degree atrioventricular block (Acute) Dyspnea (Acute) Essential hypertension (Acute) Wheeze (Acute) Cough (Acute) Poor compliance with CPAP treatment (Acute) 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 Jama Abreu MD, no further colonoscopies needed Diverticulosis (Acute) 05/27/18 Found in the entire examined colon w.Colonoscopy [place] [facility] Hiatal hernia (Chronic) 05/27/18 medium sized 35-40cm seen with Upper GI,[facility] Obstructive sleep apnea (Acute 07/20/15) CPAP AHI 28.6 Trish [place]ski Nocturia more than twice per night (Acute 10/20/16) History of alcohol abuse (Acute 05/20/15) none since Feb 2015 12-pack daily and .5-1 gal Gin/wk Heme positive stool (Acute 05/19/15) negative GI w/u [facility] [place]; no further w/u recommended Elevated serum creatinine (Acute 10/20/16) Chronic anticoagulation (Acute 05/19/15) Coumadin Switched to Eliquis 02/2016 Cardiomyopathy (Acute 05/19/15) LVEF 25-30% by ECHO 05/17/15; echo 08/2015 EF 50-55% Dr Soni follows Atrial fibrillation (Acute 05/17/15) Gastrointestinal hemorrhage (Acute) Medical History Atrial fibrillation Chronic anticoagulation eliquis Helicobacter pylori gastritis Helicobacter pylori gastritis (01/31/15) History of alcohol abuse Noncompliance with medication regimen (05/19/15) ALBERTO (obstructive sleep apnea) Personal history of tobacco use (05/20/15) none since Jan 2015 Daily cigars Poor dentition Poor dentition (12/30/15) Tobacco abuse Surgical History Colonoscopy - IV Sedation (02/08/15) w/ BX Dr. Lee sigmoid diverticulosis, Final Path Diagnosis: Inflammatory polyp Colonoscopy - [facility] (09/12/17) EGD - IV Sedation (01/31/15) Dr Lee Final Pathologic Diagnosis: Gastric Antrum stomach biopsy -Gastric antral mucosa with H. Pylori gastritis and focal intestianl metaplasia -H. Pylori seen on HE stain Gastric body stomach biopsy -Gastric body mucosa with H. Pylori gastritis -H. Pylori seen on HE stain Addendum to above path diagnosis: Biopsy Esophagus - Gastric fundic type mucosa with active erosive gastritis. EGD - [facility] (09/12/17) 05/27/18 Colonoscopy- multiple diverticula, internal hemorrhoids, 2-sessile polyps in ascending colon3-5mm size, diverticulosis in the entire examined colon H/O endoscopy History of endoscopy (05/28/18) 05/27/18 Upper GI-medium sized hiatal hernia present at 35-40cm, normal esophagus, Irregular Z-line at 35 cm from incisors, normal stomach and duodenum 05/28/18-video capsule [id number] duodenum,jejunum,and ileum. hx previous rib fxs Repair of inguinal hernia right; years ago rib fx (11/22/08) S/P cataract extraction and insertion of intraocular lens (10/08/19) right L done 11/03/19[place] [place] Monte small bowel enteroscopy (03/22/15) [facility] [place]. Champagne Family History Mother No problems noted. Father Personal history of malignant neoplasm Sister Parkinson disease Sister No problems noted. Sister No problems noted. Brother Personal history of malignant neoplasm Brother No problems noted. Social History Smoking/Tobacco Use Status: Former Tobacco Use Quit Date: 04/30/14 Tobacco: How many years used: 60 Smoking risk assessment performed?: Yes Alcohol Intake: current Alcohol Intake frequency: 0-2 drinks per day Alcohol type: beer Drug use: Never Substance use type: does not use Housing: house What type of physical activity do you participate in: none Do you feel safe at home: Yes Do you feel safe in your relationship?: Yes Additional Social history: unable to assess [facility]
[2022-11-07] MEDS: Valsartan 80 MG TAB 160 MG PO (10:48)
[2022-11-07 10:51] VITALS: BP 120/64; BP 121/69; BP 122/62; PULSE 62; PULSE 72; PULSE 76; TEMP 36.8
--- NOTE | 2022-11-07 15:09 | DSE_ITS ---
Date of service: 11/07/22 Time of Service: 15:09 DS: Diagnosis Discharge Diagnosis (1) Pre-syncope: Status: Acute (2) Atrial fib/flutter, transient: Status: Chronic (3) Essential hypertension: Status: Acute (4) Atrial fibrillation: (5) Chronic anticoagulation: Discharge Plan Disposition Patient Disposition: Home Condition: Improving Discharge Details Reason For Visit: Presyncope Admit Date/Time: 11/06/22 14:11 Admit Provider: Paulo Fernandez Attending Provider: Paulo Fernandez Primary Care Provider: Una Hoffmanyce [facility] Course Hospital Course: 81yo M with hx of afib on xarelto, cardiomyopathy with CHF EF ~30%, HTN, iron deficiency anemia, presenting for one day of blurred vision and dizziness. ? Symptoms started the day prior to admission around noon while he was working at his desk.? Worse with ambulation.? Waxing and waning in severity.? Associated nausea with one episode of nonbloody nonbilious emesis yesterday.? No bloody or dark stool.? No syncope.? No numbness/tingling/weakness.? Denied vertigo.? Blur red vision was bilateral and resolved quickly.? He is otherwise in his usual state of health with no chest pain, shortness of breath, LE edema, recent falls, abdominal pain, or other concerns. Normal neurologic exam.? He was recently started on amiodarone buy [facility]. He improved overnight. Vital signs stable, no chest pain, no shortness of breath, not orthostatic, continues to have some dizziness. ?Cardiology consult was completed; recommendation to decrease amiodarone and follow up with [facility] as planned on November 23. Discussed with Dr Fernandez. Home Meds and New Rx's Prescriptions: Continued valsartan 160 mg tablet 160 mg PO DAILY Qty: 90 3RF furosemide 40 mg tablet 40 mg PO BID Qty: 180 3RF Xarelto 20 mg tablet 20 mg PO DAILY Qty: 90 4RF Patient Comments: no longer taking Rx Instructions: must administer with evening meal benzonatate 200 mg capsule 200 mg PO PRN PRN (Reason: Cough) Patient Comments: TAKE ONE CAPSULE BY MOUTH THREE TIMES A DAY NEEDED FOR COUGH spironolactone 25 mg tablet 25 mg PO DAILY Patient Comments: TAKE ONE TABLET BY MOUTH EVERY DAY metoprolol succinate 50 mg tablet extended release 24 hr 50 mg PO DAILY omeprazole 20 mg Capsule,Delayed Release(Dr/Ec) 20 mg PO DAILY gabapentin 100 mg Capsule 100 mg PO HS PRN (Reason: Anxiety) fluticasone propionate 50 mcg/actuation spray,suspension 2 spray intranasal DAILY PRN Patient Comments: SQUIRT 2 SPRAYS IN EACH NOSTRIL NASALLY DAILY Changed amiodarone 200 mg tablet 200 mg PO 1XD Qty: 0 0RF Rx Instructions: Take 200 mg once a day; new recommendation from Dr Lemos Discontinued amiodarone 200 mg tablet Patient Comments: TAKE TWO TABLETS BY MOUTH TWICE A DAY FOR 14 DAYS THEN TWO TABLETS DAILY FOR 14 DAYS THEN ONE TABLET DAILY Discharge Instructions Instructions: Amiodarone (By mouth) Additional Instructions: Take Amiodarone 200 mg only once per day per cardiology. Follow up as planned with cardiology at [facility] November 23 Stand Alone Forms: Nursing Discharge Form Referrals: Stefanie Hoffman ENGINEERING TECHNOLOGIST [Primary Care Provider] - (called a left a voicemail for your PCP to call you if they do not call Please call an make an appointment in the next 1-2 weeks for hospital discharge) Activity:: Activity as Tolerated Equipment/Supplies:: No Equipment Needed Diet:: Low Sodium Discharge Orders Discharge Orders: Discharge Order (Routine); Ordered 11/07/22 Ordered By: Thania Spann Discharge Data Discharge Date/Time-TO BE ENTERED AT DEPARTURE: 11/07/22 16:07 DS: Summary Time Spent with Patient providing and/or coordinating discharge services: Greater than 30 minutes Status at Discharge Functional status at discharge: independent ambulation Overall status at discharge: patient is back to baseline Mental Status: mental status grossly normal Speech and Movement: speech and movement normal Mood: congruent mood Affect: normal affect Exam Psych Mental Status: mental status grossly normal Speech and Movement: speech and movement normal Mood: congruent mood Affect: normal affect DS: Data Vitals/I&O Vitals and I&O: Vital Signs Temperature 36.8 C 11/07/22 10:51 Temperature Source Tympanic 11/07/22 10:51 Pulse 72 11/07/22 10:51 Pulse Rhythm Irregular 11/07/22 08:24 Pulse 79 11/06/22 13:24 Respiratory Rate 16 11/07/22 07:19 Respiratory Effort Normal, Non-Labored 11/07/22 08:24 Respiratory Depth Normal 11/07/22 08:24 Respiratory Pattern Normal 11/07/22 08:24 Blood Pressure 121/69 11/07/22 10:51 Blood Pressure Mean 85 11/06/22 13:24 Blood Pressure Position Sitting 11/06/22 08:45 Pulse Oximetry 95 11/07/22 07:19 Oxygen Delivery Method Room Air 11/07/22 07:19 Oxygen Flow Rate 0 11/07/22 07:19 Pain Level 0 11/07/22 07:19 Comment states that he is having some mild dizziness. pt is not swaying, not stumbing, able to walk approp wth the walker to the bed from the bathroom. 11/07/22 10:51 Intake & Output 11/06/22 11/07/22 11/07/22 23:59 11:59 23:59 Intake Total 200 / 940 600 / 600 Output Total 700 / 700 Balance 200 / 940 -100 / -100 Weight 76.6 kg Intake: Oral 200 / 680 600 / 600 Output: Urine 700 / 700 Other: Urine Color Yellow Urine Appearance Clear Clear Urine Odor Normal Stool Size Large Stool Characteristics Formed Brown Voiding Methods Urinal Data Completed and Pending Labs on day of discharge: Labs from last 24 hours 11/07/22 11/07/22 11/07/22 06:00 06:00 06:00 WBC 6.41 RBC 4.75 Hgb 15.0 Hct 43.2 MCV 91 MCH 31.6 MCHC 34.7 RDW 12.0 Plt Count 194 MPV 9.3 Immature Gran % 0.6 Neutrophils % 70.6 Lymphocytes % 16.1 Monocytes % 9.7 Eosinophils % 2.2 Basophils % 0.8 Nucleated RBC % 0.0 Absolute Neutrophils 4.53 Absolute Lymphocytes 1.03 L Absolute Monocytes 0.62 Absolute Eosinophils 0.14 Absolute Basophils 0.05 Sodium 133 L Potassium 5.1 Chloride 95 L Carbon Dioxide 31.0 Anion Gap 7.0 BUN 26 H Creatinine 1.8 H Est GFR (CKD-EPI 2020) 37.58 Glucose 93 Calcium 9.2 Magnesium 2.1 PFSH All Active Problems (Updated 11/08/22 @ 08:20 by Thania Spann NP) Neuropathy of both feet (Acute) Discharge planning issues (Acute) Pre-syncope (Acute) Congestive heart failure (Chronic) Iron deficiency anemia due to chronic blood loss (Acute) 06/21/20 [facility] Oncology- arranging for venofer qw x5 02/06/21 Venofer x3 Atrial fib/flutter, transient (Chronic) Anemia (Chronic) At risk for amiodarone toxicity with manager intermediate use (Acute) Pre-op evaluation (Acute) Cataract (Chronic) First degree atrioventricular block (Acute) Dyspnea (Acute) Essential hypertension (Acute) Wheeze (Acute) Cough (Acute) Poor compliance with CPAP treatment (Acute) 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 Jama Abreu MD, no further colonoscopies needed Diverticulosis (Acute) 05/27/18 Found in the entire examined colon w.Colonoscopy at [facility] Hiatal hernia (Chronic) 05/27/18 medium sized 35-40cm seen with Upper GI,[facility] Obstructive sleep apnea (Acute 07/20/15) CPAP AHI 28.6 Trish Koshowski Nocturia more than twice per night (Acute 10/20/16) History of alcohol abuse (Acute 05/20/15) none since Feb 2015 12-pack daily and .5-1 gal Gin/wk Heme positive stool (Acute 05/19/15) negative GI w/u [facility]; no further w/u recommended Elevated serum creatinine (Acute 10/20/16) Chronic anticoagulation (Acute 05/19/15) Coumadin Switched to Eliquis 02/2016 Cardiomyopathy (Acute 05/19/15) LVEF 25-30% by ECHO 05/17/15; echo 08/2015 EF 50-55% Dr Soni follows Atrial fibrillation (Acute 05/17/15) Gastrointestinal hemorrhage (Acute) Medical History Atrial fibrillation Chronic anticoagulation eliquis Helicobacter pylori gastritis Helicobacter pylori gastritis (01/31/15) History of alcohol abuse Noncompliance with medication regimen (05/19/15) ALBERTO (obstructive sleep apnea) Personal history of tobacco use (05/20/15) none since Jan 2015 Daily cigars Poor dentition Poor dentition (12/30/15) Tobacco abuse Surgical History Colonoscopy - IV Sedation (02/08/15) w/ BX Dr. Lee sigmoid diverticulosis, Final Path Diagnosis: Inflammatory polyp Colonoscopy - MAC (09/12/17) EGD - IV Sedation (01/31/15) Dr Lee Final Pathologic Diagnosis: Gastric Antrum stomach biopsy -Gastric antral mucosa with H. Pylori gastritis and focal intestianl metaplasia -H. Pylori seen on HE stain Gastric body stomach biopsy -Gastric body mucosa with H. Pylori gastritis -H. Pylori seen on HE stain Addendum to above path diagnosis: Biopsy Esophagus - Gastric fundic type mucosa with active erosive gastritis. EGD - MAC (09/12/17) 05/27/18 Colonoscopy- multiple diverticula, internal hemorrhoids, 2-sessile polyps in ascending colon3-5mm size, diverticulosis in the entire examined colon H/O endoscopy History of endoscopy (05/28/18) 05/27/18 Upper GI-medium sized hiatal hernia present at 35-40cm, normal esophagus, Irregular Z-line at 35 cm from incisors, normal stomach and duodenum 05/28/18-video capsule [id number] duodenum,jejunum,and ileum. hx previous rib fxs Repair of inguinal hernia right; years ago rib fx (11/22/08) S/P cataract extraction and insertion of intraocular lens (10/08/19) right L done 11/03/19[place] Monte small bowel enteroscopy (03/22/15) [facility] [place]. Champagne Family History Mother No problems noted. Father Personal history of malignant neoplasm Sister Parkinson disease Sister No problems noted. Sister No problems noted. Brother Personal history of malignant neoplasm Brother No problems noted. Social History Smoking/Tobacco Use Status: Former Tobacco Use Quit Date: 04/30/14 Tobacco: How many years used: 60 Smoking risk assessment performed?: Yes Alcohol Intake: current Alcohol Intake frequency: 0-2 drinks per day Alcohol type: beer Drug use: Never Substance use type: does not use Housing: house What type of physical activity do you participate in: none Do you feel safe at home: Yes Do you feel safe in your relationship?: Yes Additional Social history: unable to assess josephatnadia Time Spent with Patient Time Spent with Patient: 70-84 minutes4 Time was spent: preparing to see the patient(eg.review tests), obtaining and/or reviewing separately otained hiistory, ordering medications,tests, procedures, referring, communicating with other health zoo caretaker, indepentently interpreting results, counseling the patient and care coordination
--- NOTE | 2022-11-07 15:29 | NUR.NOTE ---
this rn entered the room to educate the patient that he was getting discharged. pt was not notified that he was safe for discharge by the nurse practitioner ricarda yang. patient and ex at bedside state that the provider took my pills and never came back. no further assessment, education, or explanation was provided to the patient.
--- NOTE | 2022-11-07 17:35 | PDOC.CMDIS ---
Date of service: 11/07/22 Time of Service: 17:35 LACE Index Scoring Tool Questions: Length of Stay (in days): 1 Was the patient admitted via the E.D.?: Yes Comorbidities: Congestive Heart Failure and Liver or Renal Disease E.D. Visits: 1 Answers: Total Score: 10 Risk of Readmission: High Risk Care Management Discharge Plan Reason for Hospitalization: atrial fibrillation, near syncope Discharge Plan: Anticipate Moe Mcmanus) will be discharged home with no new services. He will follow up with his PCP and plan of care and transport with family. CM will follow and support discharge planning needs. Patient/Family Education Needs: Review of discharge instructions, limitations, activity, follow up plan, discuss Ask Me Three
== END 2022-11-07 16:07 | disposition home or self-care (01) ==
LOC: ER 14:12 → MS 15:43
PROVIDERS: Nurse Practitioner Family; Admitting Provider Family Medicine; Emergency Provider Student in an Organized Health Care Education/Training Program; PCP Nurse Practitioner; Visit Provider Family Medicine
DX: R55 Syncope and collapse (principal); I48.91 Unspecified atrial fibrillation; Z79.01 Long term (current) use of anticoagulants; I42.9 Cardiomyopathy, unspecified; I11.0 Hypertensive heart disease with heart failure; R42 Dizziness and giddiness; H53.8 Other visual disturbances; E87.1 Hypo-osmolality and hyponatremia; I67.89 Other cerebrovascular disease; Z79.899 Other long term (current) drug therapy; D50.0 Iron deficiency anemia secondary to blood loss (chronic); I48.92 Unspecified atrial flutter; I44.0 Atrioventricular block, first degree; G47.33 Obstructive sleep apnea (adult) (pediatric); K44.9 Diaphragmatic hernia without obstruction or gangrene; K57.30 Diverticulosis of large intestine without perforation or abscess without bleeding; Z86.010 Personal history of colon polyps; N40.1 Benign prostatic hyperplasia with lower urinary tract symptoms; R35.1 Nocturia; Z87.891 Personal history of nicotine dependence; G62.9 Polyneuropathy, unspecified
CPT/HCPCS: 36415; 80048; 80053; 93005; 96374; 99285; 70450; 81003; 83735; 84484; 85025; 85610; 85730; 93010; 99222; 99239; G0378; J2405

== ENCOUNTER 2022-11-20 04:34 | Outpatient (CLI) | payer OTHER, MEDICAID, SELFPAY ==
[2022-11-20 13:18] LABS: Abs Immature Grans 0.02 10^3/uL (0.0-0.06); Absolute Basophil Count 0.07 10^3/uL (0.0-0.2); Absolute Eosinophil Count 0.11 10^3/uL (0.0-0.7); Absolute Lymphocyte Count 0.84 10^3/uL (1.2-3.4); Absolute Monocyte Count 0.65 10^3/uL (0.1-0.8); Absolute Neutrophil Count 4.57 10^3/uL (1.2-6.7); Basophils % 1.1; Eosinophils % 1.8; HCT 38.9 % (40.0-50.0); HGB 13.7 g/dL (13.5-17.5); Immature Grans % 0.3; Lymphocytes % 13.4; MCH 31.4 pg (27.0-33.0); MCHC 35.2 % (32.0-36.0); MCV 89 fL (80-95); MPV 8.6 fL (8.0-11.0); Monocytes % 10.4; Platelet Count 207 10^3/uL (130-400); RBC 4.37 10^6/uL (4.36-5.78); RDW-SD 39.2 fL; WBC 6.26 10^3/uL (4.4-10.8)
[2022-11-20 13:40] LABS: Iron 72 ug/dL (65-175); Total Iron Binding Capacity 294 ug/dL (250-450); Transferrin Sat 24 % (20-55)
[2022-11-20 13:48] LABS: Ferritin 205 ng/mL (26-388)
== END 2022-11-20 04:35 | disposition home or self-care (01) ==
LOC: LBO 04:34
PROVIDERS: PCP Nurse Practitioner; Visit Provider Internal Medicine Medical Oncology
DX: D50.0 Iron deficiency anemia secondary to blood loss (chronic) (principal)
CPT/HCPCS: 36415; 82728; 83540; 83550; 85025

== ENCOUNTER 2022-12-01 11:51 | Outpatient (CLI) | payer OTHER, MEDICAID, SELFPAY ==
[2022-12-01 11:51] LABS: Anion Gap 7.8 mmol/L (3-11); BUN 20 mg/dL (7-18); CO2 28.2 mmol/L (21.0-32.0); CREATININE 1.4 mg/dL (0.70-1.30); Calcium 8.8 mg/dL (8.5-10.1); Chloride 102 mmol/L (98-107); Estimated GFR 50.81 (mL/min/1.73m2); Glucose 97 mg/dL (74-106); Potassium 4.4 mmol/L (3.5-5.1); Sodium 138 mmol/L (136-145)
== END 2022-12-01 11:52 | disposition home or self-care (01) ==
PROVIDERS: PCP Nurse Practitioner; Visit Provider Physician Assistant
DX: I42.8 Other cardiomyopathies (principal)
CPT/HCPCS: 36415; 80048; 80053; 80061

== ENCOUNTER → 2022-12-13 01:48 | Outpatient (CLI) | payer OTHER, MEDICAID, SELFPAY ==
--- NOTE | 2022-12-13 08:00 | DI.US_ITS ---
Exam(s) US CAROTID EXAM: US CAROTID CLINICAL HISTORY: blurred vision,h53.8. TECHNIQUE: Ultrasound carotids performed using grayscale, color-flow, and spectral Doppler imaging. COMPARISON: No exams were available for comparison FINDINGS: RIGHT CAROTID ARTERY: Right CCA is tortuous proximally. Plaque: Calcific plaque at distal common carotid artery and bulb . Velocity elevation: None. LEFT CAROTID ARTERY: Plaque: Mild calcific plaque at common carotid bulb and proximal internal carotid artery. Velocity elevation: None. VERTEBRAL ARTERIES: Antegrade flow. Measurements: R Bulb: 47.5cm/s PS / 12.8cm/s ED R CCA: 74.6cm/s PS / 11.5cm/s ED R ECA: 88.8cm/s PS / 0cm/s ED R ICA Prox: 68.1cm/s PS / 15.3cm/s ED R ICA Mid: 64.2cm/s PS / 20.4cm/s ED R ICA Distal: 75.7cm/s PS /28.2cm/s ED R Vert: 70.6cm/s PS / 19.2cm/s ED R SVR: 1 R DVR: 2.5 L Bulb: 52.5cm/s PS / 12.7cm/s ED L CCA: 74.4cm/s PS / 20.4cm/s ED L ECA: 66.7cm/s PS / 0cm/s ED L ICA Prox: 56.4cm/s PS / 11.4cm/s ED L ICA Mid: 67.6cm/s PS / 22.9cm/s ED L ICA Distal: 74cm/s PS / 16.5cm/s ED L Vert: 48.4cm/s PS / 16.5cm/s ED L SVR: 1 L DVR: 0.8 IMPRESSION: Mild calcific plaque at the distal common carotid arteries and carotid bulbs and proximal internal ca rotid arteries. No evidence for hemodynamically significant carotid stenosis. Criteria for Carotid Stenosis: Normal: ICA PSV <125 cm/s no plaque or intimal thickening is visible. <50% stenosis: ICA PSV <125 cm/s and plaque or intimal thickening is visible. 50-69% stenosis: ICA PSV is 125-250 cm/s and plaque is visible. >70% stenosis to near occlusion: ICA PSV >250 cm/s with visible plaque and luminal narrowing. DATA REPOSITORY:
== END ==
PROVIDERS: PCP Nurse Practitioner; Visit Provider Nurse Practitioner
DX: H53.8 Other visual disturbances (principal)
CPT/HCPCS: 93880

== ENCOUNTER → 2023-02-14 09:37 | Outpatient (BNVA) | payer OTHER, MEDICAID, SELFPAY | PROVIDERS: PCP Nurse Practitioner; Visit Provider Nurse Practitioner Gerontology | DX: N40.1 Benign prostatic hyperplasia with lower urinary tract symptoms (principal); R39.89 Other symptoms and signs involving the genitourinary system; I10 Essential (primary) hypertension | CPT/HCPCS: 51798; 99213 ==

== ENCOUNTER 2023-02-21 03:31 | Outpatient (CLI) | payer OTHER, MEDICAID, SELFPAY ==
[2023-02-21 08:38] LABS: Abs Immature Grans 0.02 10^3/uL (0.0-0.06); Absolute Basophil Count 0.05 10^3/uL (0.0-0.2); Absolute Eosinophil Count 0.13 10^3/uL (0.0-0.7); Absolute Lymphocyte Count 0.76 10^3/uL (1.2-3.4); Absolute Neutrophil Count 3.28 10^3/uL (1.2-6.7); Basophils % 1.1; Eosinophils % 2.7; HCT 32.2 % (40.0-50.0); HGB 10.7 g/dL (13.5-17.5); Immature Grans % 0.4; MCH 29.7 pg (27.0-33.0); MCHC 33.2 % (32.0-36.0); MCV 89 fL (80-95); MPV 8.6 fL (8.0-11.0); Monocytes % 10.5; Neutrophils % 69.3; Platelet Count 220 10^3/uL (130-400); RDW 12.4 % (11.8-14.1); RDW-SD 40.9 fL; WBC 4.74 10^3/uL (4.4-10.8)
[2023-02-21 08:58] LABS: ALT 17 U/L (16-63); AST 11 U/L (15-37); Albumin 3.9 g/dL (3.4-5.0); Alkaline Phosphatase 70 U/L (46-116); Anion Gap 10.9 mmol/L (3-11); BUN 29 mg/dL (7-18); Bilirubin, Total 0.4 mg/dL (0.2-1.0); CO2 23.1 mmol/L (21.0-32.0); CREATININE 1.7 mg/dL (0.70-1.30); Calcium 9.4 mg/dL (8.5-10.1); Calculated LDL 108 mg/dL (<100); Chloride 104 mmol/L (98-107); Cholesterol 206 mg/dL (<200); Glucose 116 mg/dL (74-106); HDL Cholesterol 46 mg/dL (40-60); Potassium 5.2 mmol/L (3.5-5.1); Sodium 138 mmol/L (136-145); Total Protein 7.3 g/dL (6.4-8.2); Triglyceride 263 mg/dL (<150)
[2023-02-21 09:04] LABS: Ferritin 33 ng/mL (26-388)
[2023-02-21 09:13] LABS: Iron 61 ug/dL (65-175); Total Iron Binding Capacity 367 ug/dL (250-450); Transferrin Sat 17 % (20-55)
== END 2023-02-21 03:32 | disposition home or self-care (01) ==
PROVIDERS: PCP Nurse Practitioner; Visit Provider Nurse Practitioner Family
DX: E78.5 Hyperlipidemia, unspecified (principal); R79.89 Other specified abnormal findings of blood chemistry; D50.0 Iron deficiency anemia secondary to blood loss (chronic)
CPT/HCPCS: 36415; 80053; 80061; 82728; 83540; 83550; 85025

== ENCOUNTER → 2023-03-05 10:50 | Outpatient (BNVA) | payer OTHER, MEDICAID, SELFPAY | PROVIDERS: PCP Nurse Practitioner; Visit Provider Internal Medicine Cardiovascular Disease | DX: Z79.01 Long term (current) use of anticoagulants (principal); I11.0 Hypertensive heart disease with heart failure; I48.91 Unspecified atrial fibrillation; I42.9 Cardiomyopathy, unspecified; I50.9 Heart failure, unspecified | CPT/HCPCS: 99214 ==

== ENCOUNTER 2023-04-02 03:55 | Outpatient (CLI) | payer OTHER, MEDICAID, SELFPAY ==
[2023-04-02 12:26] LABS: Abs Immature Grans 0.05 10^3/uL (0.0-0.06); Absolute Basophil Count 0.06 10^3/uL (0.0-0.2); Absolute Eosinophil Count 0.15 10^3/uL (0.0-0.7); Absolute Lymphocyte Count 0.99 10^3/uL (1.2-3.4); Absolute Monocyte Count 0.69 10^3/uL (0.1-0.8); Absolute Neutrophil Count 4.24 10^3/uL (1.2-6.7); Eosinophils % 2.4; HCT 31.8 % (40.0-50.0); HGB 10.7 g/dL (13.5-17.5); Immature Grans % 0.8; MCH 30.2 pg (27.0-33.0); MCHC 33.6 % (32.0-36.0); MCV 90 fL (80-95); MPV 9.1 fL (8.0-11.0); Monocytes % 11.2; Neutrophils % 68.6; Platelet Count 243 10^3/uL (130-400); RBC 3.54 10^6/uL (4.36-5.78); RDW 13.2 % (11.8-14.1); RDW-SD 43.6 fL; WBC 6.18 10^3/uL (4.4-10.8)
[2023-04-02 13:02] LABS: Ferritin 179 ng/mL (26-388); Iron 60 ug/dL (65-175); Total Iron Binding Capacity 296 ug/dL (250-450); Transferrin Sat 20 % (20-55)
== END 2023-04-02 03:56 | disposition home or self-care (01) ==
LOC: LBO 03:55
PROVIDERS: PCP Nurse Practitioner; Visit Provider Internal Medicine Medical Oncology
DX: D50.0 Iron deficiency anemia secondary to blood loss (chronic) (principal)
CPT/HCPCS: 36415; 82728; 83540; 83550; 85025

== ENCOUNTER 2023-06-04 12:08 | Outpatient (CLI) | payer OTHER, MEDICAID, SELFPAY ==
[2023-06-04 09:09] LABS: Abs Immature Grans 0.03 10^3/uL (0.0-0.06); Absolute Basophil Count 0.04 10^3/uL (0.0-0.2); Absolute Eosinophil Count 0.09 10^3/uL (0.0-0.7); Absolute Lymphocyte Count 0.59 10^3/uL (1.2-3.4); Absolute Monocyte Count 0.55 10^3/uL (0.1-0.8); Absolute Neutrophil Count 3.75 10^3/uL (1.2-6.7); Basophils % 0.8; Eosinophils % 1.8; HCT 32.1 % (40.0-50.0); HGB 10.9 g/dL (13.5-17.5); Immature Grans % 0.6; Lymphocytes % 11.7; MCH 30.4 pg (27.0-33.0); MCV 89 fL (80-95); Monocytes % 10.9; Neutrophils % 74.2; Platelet Count 187 10^3/uL (130-400); RBC 3.59 10^6/uL (4.36-5.78); RDW 13.8 % (11.8-14.1); RDW-SD 45.3 fL; WBC 5.05 10^3/uL (4.4-10.8)
[2023-06-04 09:36] LABS: BUN 38 mg/dL (7-18); CREATININE 1.9 mg/dL (0.70-1.30); Calcium 8.8 mg/dL (8.5-10.1); Chloride 105 mmol/L (98-107); Ferritin 235 ng/mL (26-388); Glucose 108 mg/dL (74-106); Potassium 5.7 mmol/L (3.5-5.1); Sodium 135 mmol/L (136-145)
[2023-06-04 10:31] LABS: Iron 82 ug/dL (65-175); Total Iron Binding Capacity 303 ug/dL (250-450); Transferrin Sat 27 % (20-55)
== END 2023-06-04 12:09 | disposition home or self-care (01) ==
LOC: LBO 12:09
PROVIDERS: PCP Nurse Practitioner; Visit Provider Internal Medicine Medical Oncology
DX: D50.0 Iron deficiency anemia secondary to blood loss (chronic) (principal)
CPT/HCPCS: 36415; 80048; 82728; 83540; 83550; 85025

== ENCOUNTER 2023-06-12 10:49 | Outpatient (CLI) | payer OTHER, SELFPAY ==
[2023-06-12 09:49] LABS: Abs Immature Grans 0.04 10^3/uL (0.0-0.06); Absolute Basophil Count 0.05 10^3/uL (0.0-0.2); Absolute Eosinophil Count 0.16 10^3/uL (0.0-0.7); Absolute Lymphocyte Count 0.65 10^3/uL (1.2-3.4); Absolute Neutrophil Count 3.19 10^3/uL (1.2-6.7); Basophils % 1.1; Eosinophils % 3.4; HCT 30.8 % (40.0-50.0); HGB 10.5 g/dL (13.5-17.5); Immature Grans % 0.9; Lymphocytes % 13.9; MCH 30.7 pg (27.0-33.0); MCHC 34.1 % (32.0-36.0); MCV 90 fL (80-95); MPV 8.8 fL (8.0-11.0); Monocytes % 12.8; Neutrophils % 67.9; Platelet Count 170 10^3/uL (130-400); RBC 3.42 10^6/uL (4.36-5.78); RDW 14.1 % (11.8-14.1); RDW-SD 45.6 fL; WBC 4.69 10^3/uL (4.4-10.8)
[2023-06-12 10:19] LABS: Anion Gap 10.6 mmol/L (3-11); BUN 22 mg/dL (7-18); CO2 20.4 mmol/L (21.0-32.0); CREATININE 1.4 mg/dL (0.70-1.30); Chloride 106 mmol/L (98-107); Estimated GFR 50.49 (mL/min/1.73m2); Ferritin 156 ng/mL (26-388); Glucose 111 mg/dL (74-106); Potassium 5.4 mmol/L (3.5-5.1); Sodium 137 mmol/L (136-145)
[2023-06-12 10:23] LABS: Iron 63 ug/dL (65-175); Total Iron Binding Capacity 275 ug/dL (250-450); Transferrin Sat 23 % (20-55)
== END 2023-06-12 10:50 | disposition home or self-care (01) ==
LOC: LBO 10:49
PROVIDERS: PCP Nurse Practitioner; Visit Provider Internal Medicine Medical Oncology
DX: I50.20 Unspecified systolic (congestive) heart failure (principal); D50.0 Iron deficiency anemia secondary to blood loss (chronic)
CPT/HCPCS: 36415; 80048; 82728; 83540; 83550; 85025

== ENCOUNTER 2023-07-03 10:01 | Outpatient (REF) | payer OTHER, SELFPAY ==
[2023-07-03 09:44] LABS: Reticulocyte 2.8 % (0.5-2.4)
== END 2023-07-03 10:02 | disposition home or self-care (01) ==
LOC: LBN 10:01
PROVIDERS: PCP Nurse Practitioner; Referring Provider Nurse Practitioner Family; Visit Provider Nurse Practitioner Family
DX: D50.0 Iron deficiency anemia secondary to blood loss (chronic) (principal)
CPT/HCPCS: 85045

== ENCOUNTER 2023-08-14 09:22 | Outpatient (CLI) | payer OTHER, SELFPAY ==
[2023-08-14 11:36] LABS: Anion Gap 9.9 mmol/L (3-11); BUN 15 mg/dL (7-18); CO2 25.1 mmol/L (21.0-32.0); CREATININE 1.3 mg/dL (0.70-1.30); Calcium 8.6 mg/dL (8.5-10.1); Chloride 104 mmol/L (98-107); Estimated GFR 55.19 (mL/min/1.73m2); Glucose 111 mg/dL (74-106); Potassium 4.1 mmol/L (3.5-5.1); Sodium 139 mmol/L (136-145)
== END 2023-08-14 09:23 | disposition home or self-care (01) ==
PROVIDERS: PCP Nurse Practitioner; Visit Provider Physician Assistant
DX: I50.20 Unspecified systolic (congestive) heart failure (principal)
CPT/HCPCS: 36415; 80048; 82728; 83540; 83550; 85025

== ENCOUNTER 2023-08-15 04:24 | Outpatient (CLI) | payer OTHER, SELFPAY ==
[2023-08-15 13:43] LABS: Abs Immature Grans 0.02 10^3/uL (0.0-0.06); Absolute Basophil Count 0.06 10^3/uL (0.0-0.2); Absolute Eosinophil Count 0.17 10^3/uL (0.0-0.7); Absolute Lymphocyte Count 0.88 10^3/uL (1.2-3.4); Absolute Monocyte Count 0.72 10^3/uL (0.1-0.8); Absolute Neutrophil Count 4.72 10^3/uL (1.2-6.7); Basophils % 0.9; Eosinophils % 2.6; HCT 42.3 % (40.0-50.0); HGB 14.6 g/dL (13.5-17.5); Immature Grans % 0.3; Lymphocytes % 13.4; MCHC 34.5 % (32.0-36.0); MCV 90 fL (80-95); MPV 8.8 fL (8.0-11.0); Neutrophils % 71.8; Platelet Count 183 10^3/uL (130-400); RBC 4.71 10^6/uL (4.36-5.78); RDW 12.7 % (11.8-14.1); RDW-SD 41.7 fL; WBC 6.57 10^3/uL (4.4-10.8)
[2023-08-15 14:08] LABS: ALT 20 U/L (16-63); AST 13 U/L (15-37); Albumin 3.7 g/dL (3.4-5.0); Alkaline Phosphatase 89 U/L (46-116); Anion Gap 12.2 mmol/L (3-11); BUN 13 mg/dL (7-18); Bilirubin, Total 0.6 mg/dL (0.2-1.0); CO2 25.8 mmol/L (21.0-32.0); CREATININE 1.2 mg/dL (0.70-1.30); Calcium 8.5 mg/dL (8.5-10.1); Chloride 102 mmol/L (98-107); Estimated GFR 60.75 (mL/min/1.73m2); Glucose 100 mg/dL (74-106); Potassium 4.1 mmol/L (3.5-5.1); Sodium 140 mmol/L (136-145); Total Protein 6.7 g/dL (6.4-8.2)
[2023-08-15 15:10] LABS: Iron 61 ug/dL (65-175); Total Iron Binding Capacity 317 ug/dL (250-450); Transferrin Sat 19 % (20-55)
[2023-08-15 15:18] LABS: Ferritin 163 ng/mL (26-388); Folate 18.2 ng/mL (8.6-20.0); Vitamin B12 203 pg/mL (193-986)
== END 2023-08-15 04:25 | disposition home or self-care (01) ==
PROVIDERS: PCP Nurse Practitioner; Visit Provider Nurse Practitioner Family
DX: D50.0 Iron deficiency anemia secondary to blood loss (chronic) (principal)
CPT/HCPCS: 36415; 80053; 82607; 82728; 82746; 83540; 83550; 85025; 85045

== ENCOUNTER 2023-08-16 09:17 | Outpatient (CLI) | payer OTHER, SELFPAY ==
--- NOTE | 2023-08-16 09:30 | RT.EKG_ITS ---
APPROVED REPORT Exam: Resting ECG Reason for Exam: baseline Patient Location: O HR:86 bpm ECG Measurements Heart Rate 86 AXIS NE [id number] P [id number] QRSd 152 QRS -58 QT 398 T -1 QTc 476 Conclusion Atrial flutter...A-rate 217 RBBB Indet axis
== END 2023-08-16 09:18 | disposition home or self-care (01) ==
LOC: DI.CARD 09:31
PROVIDERS: PCP Nurse Practitioner; Visit Provider Internal Medicine Cardiovascular Disease
DX: I48.92 Unspecified atrial flutter (principal); I45.10 Unspecified right bundle-branch block
CPT/HCPCS: 93010

== ENCOUNTER → 2023-08-16 09:17 | Outpatient (BNVA) | payer OTHER, MEDICAID, SELFPAY | PROVIDERS: PCP Nurse Practitioner; Referring Provider Nurse Practitioner; Visit Provider Internal Medicine Cardiovascular Disease | DX: I48.92 Unspecified atrial flutter (principal); I45.10 Unspecified right bundle-branch block; I48.91 Unspecified atrial fibrillation; I42.9 Cardiomyopathy, unspecified | CPT/HCPCS: 93005; 99213 ==

== ENCOUNTER → 2023-08-16 09:40 | Outpatient (BNVA) | payer OTHER, MEDICAID, SELFPAY | PROVIDERS: PCP Nurse Practitioner; Visit Provider Nurse Practitioner Gerontology | DX: N40.1 Benign prostatic hyperplasia with lower urinary tract symptoms (principal); R35.1 Nocturia | CPT/HCPCS: 51798; 99213 ==

== ENCOUNTER → 2023-09-14 11:34 | Outpatient (BNVA) | payer OTHER, MEDICAID, SELFPAY | PROVIDERS: PCP Nurse Practitioner; Referring Provider Nurse Practitioner; Visit Provider Internal Medicine Cardiovascular Disease | DX: I48.92 Unspecified atrial flutter (principal); I42.9 Cardiomyopathy, unspecified; I10 Essential (primary) hypertension; I50.9 Heart failure, unspecified; I48.91 Unspecified atrial fibrillation | CPT/HCPCS: 99213 ==

== ENCOUNTER 2023-10-02 05:54 | Day surgery (SDC) | payer OTHER, MEDICAID, SELFPAY ==
[2023-10-02] VITALS (13 sets, daily range): BP systolic 127–148; BP diastolic 53–84; PULSE 45–69; RESP 15–22; TEMP 36.1–36.6; O2SAT 93–97; BMI 29.8
[2023-10-02] MEDS: Normal Saline 1,000 ML 30 ML IV (06:46)
--- NOTE | 2023-10-02 07:08 | ANES.PREOP_ITS ---
General Info Date of Service Date Performed: 10/02/23 Height: 5 ft 4 in Weight: 78.8 kg Body Mass Index (BMI): 29.8 Surgical Procedure: Operation Date: 10/02/23 07:30 Proposed Procedure Side Surgeon p Cardioversion Teresita Lemos MD Meds Allergies and Home Medications Allergies Allergy/AdvReac Type Severity Reaction Status Date / Time No Known Drug Allergies Allergy Other (See Verified 10/02/23 06:24 Comment) Home Medication Medication Instructions Recorded furosemide 40 mg tablet 40 mg PO BID #180 tabs 09/04/22 rivaroxaban 20 mg tablet (Xarelto) 20 mg PO DAILY #90 tabs 10/09/22 fluticasone propionate 50 2 spray intranasal DAILY PRN 11/06/22 mcg/actuation nasal spray,suspension metoprolol succinate 50 mg 50 mg PO DAILY 11/06/22 tablet,extended release 24 hr spironolactone 25 mg tablet 25 mg PO DAILY 11/06/22 gabapentin 100 mg capsule See Rx Instructions .Route 02/05/23 .COMPLEX #90 caps hydrocortisone 2.5 % topical cream 1 applic NM BID-QID PRN 03/21/23 with perineal applicator hemorrhoids #30 grams (Anusol-HC) valsartan 160 mg tablet See Rx Instructions .Route 05/01/23 .COMPLEX #90 tabs omeprazole 20 mg capsule,delayed See Rx Instructions .Route 05/21/23 release .COMPLEX #180 caps benzonatate 200 mg capsule 200 mg PO TID PRN Cough #30 caps 05/22/23 amiodarone 200 mg tablet 200 mg PO DAILY #90 tabs 08/16/23 Current Visit Medications: Current Medications Generic Name Dose Route Start Last Admin Trade Name Freq PRN Reason Stop Dose Admin Sodium Chloride 1,000 mls @ 30 mls/hr 10/02/23 06:00 10/02/23 06:46 Saline 1000ml Bag IV 30 mls/hr INFUSION LISSY Administration IV Miscellaneous Supplies 1 each 10/02/23 06:00 Iv Access IV 10/02/23 23:59 DIRECTED LISSY Sodium Chloride 0 ml 10/02/23 06:00 Normal Saline Flush 10 Ml Syr IV 10/02/23 23:59 PRN PRN Sodium Chloride 0 ml 10/02/23 06:00 Normal Saline 10 Ml Vial IJ 10/02/23 23:59 DIRECTED PRN Sterile Water 0 ml 10/02/23 06:00 Water,Injection,Sterile 10 Ml Vial IJ 10/02/23 23:59 DIRECTED PRN PFSH Active Problems Active Problems: Problem Status Onset Code Neuropathy of both feet G57.93 Congestive heart failure I50.9 Iron deficiency anemia due to chronic blood loss D50.0 Atrial fib/flutter, transient Anemia D64.9 At risk for amiodarone toxicity with terminal make up operator use Z91.89, Z79.899 Pre-op evaluation Z01.818 Cataract H26.9 First degree atrioventricular block I44.0 Dyspnea R06.00 Essential hypertension I10 Wheeze R06.2 Cough R05 Poor compliance with CPAP treatment Z91.14 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 Anemia D64.9 Tubular adenoma of colon ~04/2018 D12.6 Diverticulosis K57.90 Hiatal hernia K44.9 Obstructive sleep apnea 07/20/15 G47.33 Nocturia more than twice per night 10/20/16 R35.1 History of alcohol abuse 05/20/15 Z87.898 Heme positive stool 05/19/15 R19.5 Elevated serum creatinine 10/20/16 R79.89 Chronic anticoagulation 05/19/15 Z79.01 Cardiomyopathy 05/19/15 I42.9 Atrial fibrillation 05/17/15 I48.91 Gastrointestinal hemorrhage K92.2 Medical History Medical History Noncompliance with medication regimen (05/19/15) Poor dentition (12/30/15) Personal history of tobacco use (05/20/15) none since Jan 2015 Daily cigars Helicobacter pylori gastritis (01/31/15) History of alcohol abuse Tobacco abuse Chronic anticoagulation eliquis Atrial fibrillation ALBERTO (obstructive sleep apnea) Poor dentition Helicobacter pylori gastritis Surgical History Surgical History S/P cataract extraction and insertion of intraocular lens (10/08/19) right L done 11/03/19[place] [place] Monte H/O endoscopy History of endoscopy (05/28/18) 05/27/18 Upper GI-medium sized hiatal hernia present at 35-40cm, normal esophagus, Irregular Z-line at 35 cm from incisors, normal stomach and duodenum 05/28/18-video capsule [id number] duodenum,jejunum,and ileum. small bowel enteroscopy (03/22/15) [facility] [place] Dr. Champagne rib fx (11/22/08) hx previous rib fxs Repair of inguinal hernia right; years ago EGD - MAC (09/12/17) 05/27/18 Colonoscopy- multiple diverticula, internal hemorrhoids, 2-sessile polyps in ascending colon3-5mm size, diverticulosis in the entire examined colon EGD - IV Sedation (01/31/15) Dr Lee Final Pathologic Diagnosis: Gastric Antrum stomach biopsy -Gastric antral mucosa with H. Pylori gastritis and focal intestianl metaplasia -H. Pylori seen on HE stain Gastric body stomach biopsy -Gastric body mucosa with H. Pylori gastritis -H. Pylori seen on HE stain Addendum to above path diagnosis: Biopsy Esophagus - Gastric fundic type mucosa with active erosive gastritis. Colonoscopy - MAC (09/12/17) Colonoscopy - IV Sedation (02/08/15) w/ BX Dr. Lee sigmoid diverticulosis, Final Path Diagnosis: Inflammatory polyp Tobacco Smoking/Tobacco Use Status: Former Tobacco Use Alcohol Alcohol Intake: current Alcohol intake frequency: 0-2 drinks per day Alcohol type: beer Substance Use Substance use: Never Substance use type: does not use Vital Signs and Lab Results Vital Signs Most Recent Vital Signs in EMR: Most Recent Vital Signs Temp Pulse Resp BP Pulse Ox 36.6 C 69 18 148/84 H 97 10/02/23 06:25 10/02/23 06:25 10/02/23 06:25 10/02/23 06:25 10/02/23 06:25 Lab Results Blood Type / Crossmatch: No Data to Display Complete Blood Count: No Data to Display Complete Metabolic Panel: No Data to Display Liver Function Panel: No Data to Display Coagulation Panel: No Data to Display Cardiac Panel: No Data to Display Arterial Blood Gas: No Data to Display Venous Blood Gas: No Data to Display Pancreas Panel: No Data to Display Thyroid Panel: No Data to Display Infectious Disease: No Data to Display Blood Cultures: No Data to Display Toxicology Panel: No Data to Display Imaging and Studies Imaging and Studies Study information below may be from another EMR and interpreted by another provider. Please see original notes in EMR for more complete details. Stress Test Summary: Date of study: 06/02/2015 *PATIENT PRESENTATION* Height: 162.6cm (64in ) Blood Pressure: Weight: 78.2kg (172lb ) BSA: 1.9m^2 Impressions: - Myocardial perfusion imaging is abnormal. - Abnormal contraction consistent with cardiomyopathy. Summary: 1. Myocardial perfusion imaging: The left ventricle is severely dilated. The right ventricle is severely dilated. There is a small sized, mildly intense, partially reversible defect involving the inferior and inferolateral wall(s). This suggests small myocardial infarction and minimal ischemia in the distribution of right coronary artery or the left circumflex coronary artery. 2. The calculated left ventricular ejection fraction after stress: 16%. LV global systolic function is severely reduced. No left ventricular regional motion abnormality. There is hypokinesis. 3. Stress ECG conclusions: The stress ECG is negative. The sensitivity of this test is limited by baseline right bundle branch block. 4. Stress: There is a normal resting blood pressure. Normal blood pressure response to adenosine. Echocardiogram Summary: Date of Exam: 10/06/21Sex: M Admission Date: 10/06/21 : 1940 Age: 80 Indications: SOB, A Fib,A Flutter Conclusion Normal left ventricular wall thickness and chamber size. Estimated ejection fraction is 30 to 35%. There is global hypokinesis The right ventricle is normal in size, may be mildly hypokinetic Left atrium is moderately dilated. Right atrium is normal in size Aortic valve is sclerotic and trileaflet with mild regurgitation Mildly thickened mitral leaflets. Trace to mild mitral regurgitation Normal tricuspid valve with mild regurgitation. Estimated right ventricular systolic pressure is 32 mmHg Mildly dilated ascending aorta measuring 3.58 cm Patient was in atrial fibrillation during the study with heart rates on average approximately 100 Carotid Artery Summary:: IMPRESSION: Mild calcific plaque at the distal common carotid arteries and carotid bulbs and proximal internal carotid arteries. No evidence for hemodynamically significant carotid stenosis. Criteria for Carotid Stenosis: Normal: ICA PSV <125 cm/s no plaque or intimal thickening is visible. <50% stenosis: ICA PSV <125 cm/s and plaque or intimal thickening is visible. 50-69% stenosis: ICA PSV is 125-250 cm/s and plaque is visible. >70% stenosis to near occlusion: ICA PSV >250 cm/s with visible plaque and luminal narrowing. Pulmonary Function Summary: DATE OF SERVICE - 03/19/2018 REQUESTING PROVIDER Jose Soni M.D. INTERPRETATION OF STUDY Spirometry shows no evidence of obstructive airways disease. No bronchodilator response. LUNG VOLUMES - Lung volumes show mild restriction. DIFFUSION CAPACITY- Moderately reduced, which is normal when corrected to alveolar volume. AIRWAY RESISTANCE - Normal. IMPRESSION Mild restrictive lung disease associated with moderately severe diffusion defect. Clinical correlation recommended. Underlying interstitial lung disease based on the constellation of these findings is suspected. Anesthesia Assessment and Plan Anesthesia History Personal History: No History of Anesthesia Complications Family History: No Family History of Anesthesia Complications Exercise Tolerance Exercise Tolerance: Metabolic Equivalents>4 Pertinent Negatives Pertinent Negatives: No Symptoms of GERD and No Major Pulmonary Symptoms or Complaints Cardiac & Pulmonary Exam Cardiac Exam: Normal S1/S2 Heart Sounds (Diminished) Pulmonary Exam: Clear Bilateral Breath Sounds Implantable Cardiac Device Does patient have a Pacemaker or an ICD?: No Airway Exam Known Difficult Airway: No Mallampati Class: 2 Mouth Opening: Normal (> 3cm) Thyromental Distance: Greater than 3 cm Neck Range of Motion: Full ROM Neck Circumference: Normal Teeth Condition: Edentulous ASA Classification ASA Score: ASA 3 Emergency Case?: No NPO Status NPO Status: NPO Clears >2 hours, Solids >8 hours Anesthesia Plan Resuscitation Status: Full Code Anesthesia Technique: MAC Anesthesia Airway Planned: Natural Airway Monitors Used: Standard Monitors
--- NOTE | 2023-10-02 07:53 | W.CARDVER ---
Date of service: 10/02/23 Time of Service: 07:53 Cardioversion DATE OF PROCEDURE: 10/02/23 PRE-OP DIAGNOSES: Atrial fibrillation POST-OP DIAGNOSES: same Indications: Recurrent atrial fibrillation Procedure Description: Synchronized cardioversion After informed consent was obtained patient was brought to the operating room where he was sedated under the direction of the anesthesiologist. Anterior and posterior ZOLL pads were placed, he was connected to continuous monitoring. He also had ongoing blood pressure, pulse oximetry, and telemetry. Once adequate sedation was obtained the patient received 1 synchronized shock at 200 W seconds. He converted from atrial fibrillation to sinus bradycardia with multiple atrial premature beats. Procedure was well-tolerated. He was taken to the recovery area and plan is for discharge when fully awake
--- NOTE | 2023-10-02 07:55 | W.PM.DSUDISC ---
Date of service: 10/02/23 Time of Service: 07:55 Discharge Plan Disposition Patient Disposition: Home Condition: Stable Discharge Details Reason For Visit: Synchronized cardioversion Attending Provider: Teresita Lemos Primary Care Provider: Stefanie Hoffman Home Meds and New Rx's Prescriptions: No Action hydrocortisone [Anusol-HC] 2.5 % cream with perineal applicator [address] BID-QID PRN (Reason: hemorrhoids) Qty: 30 3RF amiodarone 200 mg tablet 200 mg PO DAILY Qty: 90 3RF furosemide 40 mg tablet 40 mg PO BID Qty: 180 3RF Xarelto 20 mg tablet 20 mg PO DAILY Qty: 90 4RF Patient Comments: no longer taking Rx Instructions: must administer with evening meal gabapentin 100 mg capsule See Rx Instructions .ROUTE .COMPLEX Qty: 90 3RF Dose Instruction: TAKE ONE CAPSULE BY MOUTH EVERY NIGHT AT BEDTIME Rx Instructions: TAKE ONE CAPSULE BY MOUTH EVERY NIGHT AT BEDTIME valsartan 160 mg tablet See Rx Instructions .ROUTE .COMPLEX Qty: 90 3RF Dose Instruction: TAKE 1 TABLET BY MOUTH DAILY Rx Instructions: TAKE 1 TABLET BY MOUTH DAILY omeprazole 20 mg capsule,delayed release(DR/EC) See Rx Instructions .ROUTE .COMPLEX Qty: 180 3RF Dose Instruction: TAKE ONE CAPSULE BY MOUTH TWICE A DAY Rx Instructions: TAKE ONE CAPSULE BY MOUTH TWICE A DAY benzonatate 200 mg capsule 200 mg PO TID PRN (Reason: Cough) Qty: 30 0RF spironolactone 25 mg tablet 25 mg PO DAILY Hold Instructions: HOLD per Cardiology on 05/31/23 Patient Comments: TAKE ONE TABLET BY MOUTH EVERY DAY metoprolol succinate 50 mg tablet extended release 24 hr 50 mg PO DAILY fluticasone propionate 50 mcg/actuation spray,suspension 2 spray intranasal DAILY PRN Patient Comments: SQUIRT 2 SPRAYS IN EACH NOSTRIL NASALLY DAILY Discharge Instructions Activity:: Activity as Tolerated Diet:: As Tolerated Discharge Orders Discharge Orders: Discharge Order (Routine); Ordered 10/02/23 Ordered By: Teresita Lemos DS: Diagnosis Discharge Diagnosis (1) Atrial fibrillation:
--- NOTE | 2023-10-02 09:25 | W.ANESPOSTOP ---
Postoperative Evaluation Date, Time and Location Date Performed: 10/02/23 Time Performed: 08:45 Patient Location: Day [facility] Unit Vital Signs Most Recent Imported Vital Signs: Most Recent Vital Signs Temp Pulse Resp BP Pulse Ox 36.1 C L 52 L 20 132/65 94 10/02/23 08:26 10/02/23 08:26 10/02/23 08:26 10/02/23 08:26 10/02/23 08:26 Pain Score Most Recent Pain Score: Most Recent Pain Score Pain Level 0 10/02/23 08:26 Assessment Mental Status: Awake (Alert & Oriented to Patient Baseline) Airway and Respiratory Function: Patent airway with normal (patient baseline) respiratory exam Cardiovascular Function: Hemodynamically Stable Hydration Status: Adequately Hydrated Nausea & Vomiting: No Nausea or Vomiting Pain: Pt. Denies Any Pain Peripheral Nerve Block: Patient did not receive a nerve block
--- NOTE | 2023-10-02 15:30 | RT.EKG_ITS ---
APPROVED REPORT Exam: Resting ECG Reason for Exam: Afib Patient Location: O HR:78 bpm ECG Measurements Heart Rate 78 AXIS NV [id number] P [id number] QRSd 173 QRS -40 QT 487 T 14 QTc 556 Conclusion Atrial fibrillation...? atrial activity IncRBBB and LAFB...QRSd >120mS, axis(-40,240)
--- NOTE | 2023-10-02 15:30 | RT.EKG_ITS ---
APPROVED REPORT Exam: Resting ECG Reason for Exam: Afib Patient Location: O HR:55 bpm ECG Measurements Heart Rate 55 AXIS CA 100 P 0 QRSd 170 QRS -35 QT 553 T 25 QTc 491 Conclusion Sinus bradycardia...rate< 60 Atrial premature complexes...SV complexes w/ short R-R intvls Right bundle branch block...QRSd>120, terminal axis(90,270)
== END 2023-10-02 09:15 | disposition home or self-care (01) ==
PROVIDERS: PCP Nurse Practitioner; Visit Provider Internal Medicine Cardiovascular Disease
PROC: 5A2204Z Restoration of Cardiac Rhythm, Single (ICD-10-PCS; CPT 92960; principal; 2023-10-02 07:30)
DX: I48.91 Unspecified atrial fibrillation (principal); R00.1 Bradycardia, unspecified; I49.1 Atrial premature depolarization
CPT/HCPCS: 92960; 93005; 93010; J2001; J2704

== ENCOUNTER 2023-10-08 16:21 | Outpatient (CLI) | payer OTHER, MEDICAID, SELFPAY ==
[2023-10-08 07:29] LABS: Abs Immature Grans 0.02 10^3/uL (0.0-0.06); Absolute Basophil Count 0.04 10^3/uL (0.0-0.2); Absolute Eosinophil Count 0.14 10^3/uL (0.0-0.7); Absolute Monocyte Count 0.48 10^3/uL (0.1-0.8); Absolute Neutrophil Count 3.31 10^3/uL (1.2-6.7); Basophils % 0.9 %; Eosinophils % 3.1 %; HCT 43.6 % (40.0-50.0); HGB 14.7 g/dL (13.5-17.5); Immature Grans % 0.4 %; Lymphocytes % 13.1 %; MCH 29.6 pg (27.0-33.0); MCHC 33.7 % (32.0-36.0); MCV 88 fL (80-95); MPV 8.8 fL (8.0-11.0); Monocytes % 10.5 %; Platelet Count 168 10^3/uL (130-400); RBC 4.97 10^6/uL (4.36-5.78); RDW 12.6 % (11.8-14.1); RDW-SD 40.5 fL; Reticulocyte 1.3 % (0.5-2.4); WBC 4.59 10^3/uL (4.4-10.8)
[2023-10-08 07:55] LABS: Iron 57 ug/dL (65-175); Total Iron Binding Capacity 282 ug/dL (250-450); Transferrin Sat 20 % (20-55)
[2023-10-08 08:10] LABS: ALT 19 U/L (16-63); AST 14 U/L (15-37); Albumin 3.7 g/dL (3.4-5.0); Alkaline Phosphatase 87 U/L (46-116); Anion Gap 11.5 mmol/L (3-11); BUN 16 mg/dL (7-18); Bilirubin, Total 0.6 mg/dL (0.2-1.0); CO2 27.5 mmol/L (21.0-32.0); CREATININE 1.3 mg/dL (0.70-1.30); Chloride 100 mmol/L (98-107); Estimated GFR 55.19 (mL/min/1.73m2); Ferritin 171 ng/mL (26-388); Folate 11.7 ng/mL (8.6-20.0); Glucose 126 mg/dL (74-106); Potassium 3.9 mmol/L (3.5-5.1); Sodium 139 mmol/L (136-145); Total Protein 6.9 g/dL (6.4-8.2); Vitamin B12 225 pg/mL (193-986)
== END 2023-10-08 16:22 | disposition home or self-care (01) ==
LOC: LBO 16:24
PROVIDERS: PCP Nurse Practitioner; Visit Provider Nurse Practitioner Family
DX: D50.0 Iron deficiency anemia secondary to blood loss (chronic) (principal)
CPT/HCPCS: 36415; 80053; 82607; 82728; 82746; 83540; 83550; 85025; 85045

== ENCOUNTER 2024-01-01 11:18 | Outpatient (CLI) | payer OTHER, SELFPAY ==
[2024-01-01 08:32] LABS: Abs Immature Grans 0.03 10^3/uL (0.0-0.06); Absolute Basophil Count 0.08 10^3/uL (0.0-0.2); Absolute Eosinophil Count 0.17 10^3/uL (0.0-0.7); Absolute Lymphocyte Count 0.63 10^3/uL (1.2-3.4); Absolute Monocyte Count 0.72 10^3/uL (0.1-0.8); Absolute Neutrophil Count 3.77 10^3/uL (1.2-6.7); Basophils % 1.5 %; Eosinophils % 3.1 %; HGB 13.1 g/dL (13.5-17.5); Immature Grans % 0.6 %; Lymphocytes % 11.7 %; MCH 29.9 pg (27.0-33.0); MCHC 33.6 % (32.0-36.0); MCV 89 fL (80-95); MPV 9.1 fL (8.0-11.0); Monocytes % 13.3 %; Neutrophils % 69.8 %; Platelet Count 200 10^3/uL (130-400); RBC 4.38 10^6/uL (4.36-5.78); RDW 12.8 % (11.8-14.1)
[2024-01-01 08:58] LABS: Ferritin 55 ng/mL (26-388)
[2024-01-01 09:21] LABS: Iron 48 ug/dL (65-175); Total Iron Binding Capacity 358 ug/dL (250-450); Transferrin Sat 13 % (20-55)
== END 2024-01-01 11:19 | disposition home or self-care (01) ==
LOC: LBO 11:21
PROVIDERS: PCP Nurse Practitioner; Visit Provider Nurse Practitioner Family
DX: D50.0 Iron deficiency anemia secondary to blood loss (chronic) (principal)
CPT/HCPCS: 36415; 82728; 83540; 83550; 85025

== ENCOUNTER → 2024-02-14 09:50 | Outpatient (BNVA) | payer OTHER, MEDICAID, SELFPAY | PROVIDERS: PCP Nurse Practitioner; Visit Provider Nurse Practitioner Gerontology | DX: N40.1 Benign prostatic hyperplasia with lower urinary tract symptoms (principal); R39.9 Unspecified symptoms and signs involving the genitourinary system | CPT/HCPCS: 51798; 99213 ==

== ENCOUNTER → 2024-02-28 13:17 | Outpatient (BNVA) | payer OTHER, MEDICAID, SELFPAY | PROVIDERS: PCP Nurse Practitioner; Referring Provider Nurse Practitioner; Visit Provider Internal Medicine Cardiovascular Disease | DX: I48.91 Unspecified atrial fibrillation (principal); I48.92 Unspecified atrial flutter; I42.9 Cardiomyopathy, unspecified | CPT/HCPCS: 99213 ==

== ENCOUNTER 2024-04-10 15:09 | Emergency (ER) | payer OTHER, MEDICAID, SELFPAY ==
[2024-04-10] VITALS (23 sets, daily range): BP systolic 136–204; BP diastolic 53–79; PULSE 52–63; RESP 12–22; TEMP 36.3; O2SAT 89–95
--- NOTE | 2024-04-10 15:30 | RT.EKG_ITS ---
APPROVED REPORT Exam: Resting ECG Reason for Exam: dizziness, fall last night Patient Location: E HR:56 bpm ECG Measurements Heart Rate 56 AXIS AZ [id number] P [id number] QRSd 162 QRS -56 QT 530 T 14 QTc 514 Conclusion Sinus bradycardia, rate 56 RBBB No STEMI Compared to priors, baseline artifact makes P waves difficult to discern
--- NOTE | 2024-04-10 15:30 | DI.CT_ITS ---
Exam(s) CT CHEST W EXAM: CT CHEST W CLINICAL HISTORY: fall, L rib pain, please include all ribs TECHNIQUE: Imaging Protocol: Axial computed tomography images with coronal and sagittal reformatted images were created and reviewed. Computer aided detection (CAD) was utilized. CONTRAST MATERIAL: Intravenous: Omnipaque 350 Contrast volume:70 ml. COMPARISON: CT CHEST WITHOUT CONTRAST from 10/29/2017 FINDINGS: Pulmonary parenchyma: Mild left basilar atelectasis. Minimal right basilar atelectasis. No consolid ation. No dominant measurable mass. Tracheobronchial tree: No bronchiectasis or mucous plugging. Mediastinum and Bev: No dominant adenopathy or fluid collection. Pleura: No effusion. No pneumothorax. Heart: The heart is pvou-dl-cjsrzzmpnr dilated. Mild coronary artery calcifications are seen. Aorta: Thoracic aorta non-dilated. Mild to moderate atherosclerotic changes. No dissection. Pulmonary arteries: Suboptimally opacified. No gross evidence of emboli. Upper abdomen: No acute findings. Diverticulosis noted at the splenic flexure. Bones: Degenerative changes in the spine. No compression fractures. Mildly displaced fractures of the left posterior 9th and 10th ribs. Multiple old right rib fractures. Old right scapular fractur e. Soft tissues: Unremarkable. IMPRESSION: Mildly displaced fractures of the left 9th and 10th ribs. No evidence of pneumothorax or pleural eff usion. Findings called to Manuel Godfrey, ER provider. RADIATION DOSE DELIVERED: Total DLP DATA REPOSITORY: All CT scans at this facility are submitted to the National Radiology Data Registry (NRDR) Dose Index Registry (DIR) with the [employer] ([employer]). RADIATION OPTIMIZATION: All CT scans at this facility use at least one of these dose optimization te chniques: automated exposure control; mA and/or kV adjustment per patient size (includes targeted exa ms where dose is matched to clinical indication); or iterative reconstruction.
[2024-04-10 16:11] LABS: Abs Immature Grans 0.04 10^3/uL (0.0-0.06); Absolute Basophil Count 0.02 10^3/uL (0.0-0.2); Absolute Eosinophil Count 0.01 10^3/uL (0.0-0.7); Absolute Lymphocyte Count 0.58 10^3/uL (1.2-3.4); Absolute Monocyte Count 0.89 10^3/uL (0.1-0.8); Absolute Neutrophil Count 7.92 10^3/uL (1.2-6.7); Basophils % 0.2 %; Eosinophils % 0.1 %; HCT 37.9 % (40.0-50.0); HGB 13.3 g/dL (13.5-17.5); Immature Grans % 0.4 %; Lymphocytes % 6.1 %; MCHC 35.1 % (32.0-36.0); MCV 86 fL (80-95); MPV 8.8 fL (8.0-11.0); Monocytes % 9.4 %; Neutrophils % 83.8 %; Platelet Count 173 10^3/uL (130-400); RBC 4.43 10^6/uL (4.36-5.78); RDW 13.2 % (11.8-14.1); RDW-SD 41.4 fL; WBC 9.46 10^3/uL (4.4-10.8)
[2024-04-10] MEDS: MORPHine 4 MG/ML SYR IVP (16:17)
[2024-04-10 16:28] LABS: ALT 73 U/L (16-63); AST 62 U/L (15-37); Albumin 3.6 g/dL (3.4-5.0); Alkaline Phosphatase 95 U/L (46-116); Anion Gap 8.7 mmol/L (3-11); BUN 14 mg/dL (7-18); Bilirubin, Total 0.83 mg/dL (0.2-1.0); CO2 28.3 mmol/L (21.0-32.0); CREATININE 1.7 mg/dL (0.70-1.30); Calcium 8.4 mg/dL (8.5-10.1); Chloride 98 mmol/L (98-107); Estimated GFR 39.75 (mL/min/1.73m2); Glucose 114 mg/dL (74-106); Potassium 4.3 mmol/L (3.5-5.1); Sodium 135 mmol/L (136-145); Total Protein 6.8 g/dL (6.4-8.2); Troponin I 16 ng/L (<or=76)
[2024-04-10] MEDS: Normal Saline - Diluent 50 ML VIAL IJ (16:55)
[2024-04-10] MEDS: Omnipaque 350 MG/ML 100 ML BTL IJ (16:56)
--- NOTE | 2024-04-10 17:06 | ED.GENADUL_ITS ---
Discharge Plan Disposition Patient Disposition: Home Condition: Stable Discharge Details Clinical Impression: Fracture of multiple ribs of left side Primary Care Provider: Stefanie Hoffman ED Provider: Manuel Godfrey Home Meds and New Rx's Prescriptions: New oxycodone 5 mg tablet 5 mg PO Q8H PRN (Reason: fracture; acute pain) Qty: 14 0RF Continued hydrocortisone [Anusol-HC] 2.5 % cream with perineal applicator 1 applic NC BID-QID PRN (Reason: hemorrhoids) Qty: 30 3RF furosemide 40 mg tablet 40 mg PO DAILY amiodarone 200 mg tablet 200 mg PO DAILY Qty: 90 3RF gabapentin 100 mg capsule See Rx Instructions .ROUTE .COMPLEX Qty: 90 3RF Dose Instruction: TAKE ONE CAPSULE BY MOUTH EVERY NIGHT AT BEDTIME Rx Instructions: TAKE ONE CAPSULE BY MOUTH EVERY NIGHT AT BEDTIME Xarelto 20 mg tablet 20 mg PO DAILY Qty: 90 4RF Patient Comments: no longer taking Rx Instructions: must administer with evening meal loratadine [Allergy Relief (loratadine)] 10 mg tablet 10 mg PO DAILY Qty: 30 3RF valsartan 160 mg tablet See Rx Instructions .ROUTE .COMPLEX Qty: 90 3RF Dose Instruction: TAKE 1 TABLET BY MOUTH DAILY Rx Instructions: TAKE 1 TABLET BY MOUTH DAILY omeprazole 20 mg capsule,delayed release(DR/EC) See Rx Instructions .ROUTE .COMPLEX Qty: 180 3RF Dose Instruction: TAKE ONE CAPSULE BY MOUTH TWICE A DAY Rx Instructions: TAKE ONE CAPSULE BY MOUTH TWICE A DAY metoprolol succinate 50 mg tablet extended release 24 hr 50 mg PO DAILY Qty: 90 3RF benzonatate 200 mg capsule 200 mg PO TID PRN (Reason: Cough) Qty: 30 0RF spironolactone 25 mg tablet 25 mg PO DAILY Patient Comments: TAKE ONE TABLET BY MOUTH EVERY DAY Discharge Instructions Instructions: How to Use an Incentive Spirometer, Rib fractures in adults, Oxycodone Additional Instructions: You were seen in the emergency department for your fall in the garage at home last night, you have 2 mildly displaced fractures of your left posterior ninth and 10th ribs. The biggest complication with this injury would be developing pneumonia which we have provided an incentive spirometer to use frequently for you. Please take 650 or 1000 mg of Tylenol every 8 hours, take the prescribed oxycodone for breakthrough pain every 8 hours as needed. Please return for any fever, increasing chest pain, shortness of breath, respiratory distress. Referrals: Stefanie Hoffman NP [Primary Care Provider] - Discharge Data Discharge Date/Time-TO BE ENTERED AT DEPARTURE: 04/10/24 18:06 HPI General Date/Time Provider Initiated Documentation: 04/10/24 15:13 . HPI Narrative: 83 year-old male presents to ED today by POV/ambulating with his granddaughter with a chief complaint of fall last night, tripped in the garage with L lower rib pain. Quality described as sharp pain, especially with movement/deep breaths/coughing, no radiation to fever, productive cough, chest pain, nausea/vomiting. Severity is described as severe. Palliating factors include took Tylenol without relief. Provoking factors include palpation. Events leading up to the incident/Associated Symptoms: Patient endorses old R rib injuries, feels similar. Patient is anticoagulated. Related Data Home Medications ?Medication ?Instructions ?Recorded ?Confirmed spironolactone 25 mg tablet 25 mg PO DAILY 11/06/22 04/10/24 hydrocortisone 2.5 % topical cream 1 applic NC BID-QID PRN 03/21/23 04/10/24 with perineal applicator hemorrhoids #30 grams (Anusol-HC) valsartan 160 mg tablet See Rx Instructions .Route 05/01/23 04/10/24 .COMPLEX #90 tabs omeprazole 20 mg capsule,delayed See Rx Instructions .Route 05/21/23 04/10/24 release .COMPLEX #180 caps amiodarone 200 mg tablet 200 mg PO DAILY #90 tabs 08/16/23 04/10/24 metoprolol succinate 50 mg 50 mg PO DAILY #90 tabs 10/09/23 04/10/24 tablet,extended release 24 hr gabapentin 100 mg capsule See Rx Instructions .Route 10/16/23 04/10/24 .COMPLEX #90 caps rivaroxaban 20 mg tablet (Xarelto) 20 mg PO DAILY #90 tabs 10/16/23 04/10/24 loratadine 10 mg tablet (Allergy 10 mg PO DAILY #30 tabs 01/15/24 04/10/24 Relief (loratadine)) furosemide 40 mg tablet 40 mg PO DAILY 02/14/24 04/10/24 benzonatate 200 mg capsule 200 mg PO TID PRN Cough #30 caps 02/18/24 04/10/24 oxycodone 5 mg tablet 5 mg PO Q8H PRN fracture; acute 04/10/24 pain #14 tabs Previous Rx's ?Medication ?Instructions ?Recorded hydrocortisone 2.5 % topical cream 1 applic NC BID-QID PRN 03/21/23 with perineal applicator hemorrhoids #30 grams (Anusol-HC) valsartan 160 mg tablet See Rx Instructions .Route 05/01/23 .COMPLEX #90 tabs omeprazole 20 mg capsule,delayed See Rx Instructions .Route 05/21/23 release .COMPLEX #180 caps amiodarone 200 mg tablet 200 mg PO DAILY #90 tabs 08/16/23 metoprolol succinate 50 mg 50 mg PO DAILY #90 tabs 10/09/23 tablet,extended release 24 hr gabapentin 100 mg capsule See Rx Instructions .Route 10/16/23 .COMPLEX #90 caps rivaroxaban 20 mg tablet (Xarelto) 20 mg PO DAILY #90 tabs 10/16/23 loratadine 10 mg tablet (Allergy 10 mg PO DAILY #30 tabs 01/15/24 Relief (loratadine)) benzonatate 200 mg capsule 200 mg PO TID PRN Cough #30 caps 02/18/24 oxycodone 5 mg tablet 5 mg PO Q8H PRN fracture; acute 04/10/24 pain #14 tabs Allergies Allergy/AdvReac Type Severity Reaction Status Date / Time No Known Drug Allergies Allergy Other (See Verified 04/10/24 15:46 Comment) General Stated Complaint: Fall/Non TraumaCriteria RACHELLE: 4 Review of Systems All systems reviewed & are unremarkable except as noted in HPI and below Exam Narrative Exam Narrative: GENERAL APPEARANCE: Well-nourished, non-toxic, awake and alert, atraumatic, no acute distress. SKIN: Warm, pink, dry, intact, without rashes/lesions/ulcerations. HEAD: Normocephalic, atraumatic, normal hair distribution for gender/age. EYES: Normal conjunctiva, no exudates on lids/lashes. ENT: Nares patent, no circumoral cyanosis, no facial swelling NECK: Supple, trachea midline, painless cervical ROM. LUNGS/CHEST: Lungs CTA bilaterally-no focally diminished or absent lung sounds, non-labored respirations, normal A/P diameter, symmetrical expansion, no chest wall deformity, tenderness to palpation the left posterior ribs without overt crepitus, no flail segment or paradoxical motion HEART (CV/PV): Regular rate and rhythm without murmur, no peripheral edema, no JVD. ABDOMEN: Soft, non-distended, no guarding, no left upper quadrant tenderness/ecchymosis/rigidity. MSK: Normal ROM, no swelling/deformity to bilateral UEs or LEs, moving all extremities without weakness, no cyanosis, spine midline without tenderness, normal curvature. NEURO: Mental Status AAOx4 - alert to person, place, time, events No facial droop, no forehead involvement. Motor: No focal weakness - strength 5/5 in bilateral UEs and LEs, proximal and distal, symmetric. Sensory: sensation intact to light touch globally. Gait normal: patient ambulated without ataxia into ED room. PSYCH: euthymic, cooperative, pleasant, appropriate speech Course Vital Signs Vital signs: Vital Signs Temperature 36.3 C L 04/10/24 15:10 Pulse 63 04/10/24 15:10 Respiratory Rate 18 04/10/24 15:10 Blood Pressure 171/74 H 04/10/24 15:10 Pulse Oximetry 92 04/10/24 15:10 Temperature 36.3 C L 04/10/24 15:10 Temperature Source Oral 04/10/24 15:10 Pulse 54 L 04/10/24 16:56 Pulse 54 L 04/10/24 16:50 Respiratory Rate 17 04/10/24 16:56 Blood Pressure 136/53 L 04/10/24 16:56 Blood Pressure Mean 80 04/10/24 16:56 Pulse Oximetry 94 04/10/24 16:56 Oxygen Delivery Method Room Air 04/10/24 16:56 Oxygen Flow Rate 0 04/10/24 16:56 Pain Level 6 04/10/24 16:17 Lab/Test Results Lab/Test Results: Laboratory Tests Range/Units 04/10/24 16:03 WBC (4.4-10.8) 10^3/uL 9.46 RBC (4.36-5.78) 10^6/uL 4.43 Hgb (13.5-17.5) g/dL 13.3 L Hct (40.0-50.0) % 37.9 L MCV (80-95) fL 86 MCH (27.0-33.0) pg 30.0 MCHC (32.0-36.0) % 35.1 RDW (11.8-14.1) % 13.2 Plt Count (130-400) 10^3/uL 173 MPV (8.0-11.0) fL 8.8 Immature Gran % % 0.4 Neutrophils % % 83.8 Lymphocytes % % 6.1 Monocytes % % 9.4 Eosinophils % % 0.1 Basophils % % 0.2 Nucleated RBC % (0.0-0.3) % 0.0 Absolute Neutrophils (1.2-6.7) 10^3/uL 7.92 H Absolute Lymphocytes (1.2-3.4) 10^3/uL 0.58 L Absolute Monocytes (0.1-0.8) 10^3/uL 0.89 H Absolute Eosinophils (0.0-0.7) 10^3/uL 0.01 Absolute Basophils (0.0-0.2) 10^3/uL 0.02 Sodium (136-145) mmol/L 135 L Potassium (3.5-5.1) mmol/L 4.3 Chloride (98-107) mmol/L 98 Carbon Dioxide (21.0-32.0) mmol/L 28.3 Anion Gap (3-11) mmol/L 8.7 BUN (7-18) mg/dL 14 Creatinine (0.70-1.30) mg/dL 1.7 H Est GFR (CKD-EPI 2020) (mL/min/1.73m2) 39.75 Glucose (74-106) mg/dL 114 H Calcium (8.5-10.1) mg/dL 8.4 L Total Bilirubin (0.2-1.0) mg/dL 0.83 AST (15-37) U/L 62 H ALT (16-63) U/L 73 H Alkaline Phosphatase (46-116) U/L 95 Troponin I (<or=76) ng/L 16 Total Protein (6.4-8.2) g/dL 6.8 Albumin (3.4-5.0) g/dL 3.6 Medical Decision Making This dictation utilizes [id number] dictation software and may contain unedited grammatical errors. 83 year-old male presents to ED today by POV/ambulating with his granddaughter with a chief complaint of fall last night, tripped in the garage with L lower rib pain. Quality described as sharp pain, especially with movement/deep breaths/coughing, no radiation to fever, productive cough, chest pain, nausea/v omiting. Severity is described as severe. Palliating factors include took Tylenol without relief. Provoking factors include palpation. Events leading up to the incident/Associated Symptoms: Patient endorses old R rib injuries, feels similar. Patients' medical history: History of atrial fibrillation, on Xarelto, ALBERTO, CHF, anemia, first-degree AV block, hypertension, cardiomyopathy, GI bleeding. Family and social history: Former smoker, former alcohol heavy use. Pertinent exam findings / vital signs include tenderness to palpation in the left posterior lower ribs without overt crepitus, no paradoxical motion or flail segment, no focally diminished or absent lung sounds, benign abdomen. Differential / pathologies of concern include rib fracture, contusion, pneumothorax. Diagnostic studies of: -CT chest with contrast, CBC, CMP, troponin, EKG. -Labs benign -CT chest shows 2 mildly displaced rib fractures in the left ninth and 10th ribs, no pneumothorax -Troponin negative, EKG benign Interventions of: -morphine PRN for pain, incentive spirometry. ED Course/Assessment/Plan: 83-year-old male patient suffered a fall in the garage last night having left rib pain, pain with inspiration, has 2 mildly displaced ninth and 10th rib fractures of the left posterior ribs, was counseled on strict return criteria for any developing fever or productive cough, provided incentive spirometer as well as pain control with narcotic medicines by prescription, counseled on use only for breakthrough pain in addition to Tylenol, brace with pillows around the area and strict return criteria for any worsening respiratory distress. Findings not consistent with pneumothorax, trauma criteria of rib fractures, pneumonia, bleeding. Disposition of Fracture of multiple ribs of left side. Patient verbalized understanding of the plan and return to ED criteria and engaged in shared decision making. Medical Records Medical records reviewed: Yes I reviewed the patient's medical records. Imaging Data Radiologic Study: Attestation: I personally reviewed and interpreted this imaging study as follows: Imaging: CT Scan Radiologist's impression: EXAM: CT CHEST W CLINICAL HISTORY: fall, L rib pain, please include all ribs TECHNIQUE: Imaging Protocol: Axial computed tomography images with coronal and sagittal reformatted images were created and reviewed. Computer aided detection (CAD) was utilized. CONTRAST MATERIAL: Intravenous: Omnipaque 350 Contrast volume:70 ml. COMPARISON: CT CHEST WITHOUT CONTRAST from 10/29/2017 FINDINGS: Pulmonary parenchyma: Mild left basilar atelectasis. Minimal right basilar atelectasis. No consolidation. No dominant measurable mass. Tracheobronchial tree: No bronchiectasis or mucous plugging. Mediastinum and Bev: No dominant adenopathy or fluid collection. Pleura: No effusion. No pneumothorax. Heart: The heart is rlep-ys-zaklwelkob dilated. Mild coronary artery calcifications are seen. Aorta: Thoracic aorta non-dilated. Mild to moderate atherosclerotic changes. No dissection. Pulmonary arteries: Suboptimally opacified. No gross evidence of emboli. Upper abdomen: No acute findings. Diverticulosis noted at the splenic flexure. Bones: Degenerative changes in the spine. No compression fractures. Mildly displaced fractures of the left posterior 9th and 10th ribs. Multiple old right rib fractures. Old right scapular fracture. Soft tissues: Unremarkable. IMPRESSION: Mildly displaced fractures of the left 9th and 10th ribs. No evidence of pneumothorax or pleural effusion. Lab Data Lab results reviewed: Yes I reviewed the patient's lab results. Labs: Laboratory Tests Range/Units 04/10/24 16:03 WBC (4.4-10.8) 10^3/uL 9.46 RBC (4.36-5.78) 10^6/uL 4.43 Hgb (13.5-17.5) g/dL 13.3 L Hct (40.0-50.0) % 37.9 L MCV (80-95) fL 86 MCH (27.0-33.0) pg 30.0 MCHC (32.0-36.0) % 35.1 RDW (11.8-14.1) % 13.2 Plt Count (130-400) 10^3/uL 173 MPV (8.0-11.0) fL 8.8 Immature Gran % % 0.4 Neutrophils % % 83.8 Lymphocytes % % 6.1 Monocytes % % 9.4 Eosinophils % % 0.1 Basophils % % 0.2 Nucleated RBC % (0.0-0.3) % 0.0 Absolute Neutrophils (1.2-6.7) 10^3/uL 7.92 H Absolute Lymphocytes (1.2-3.4) 10^3/uL 0.58 L Absolute Monocytes (0.1-0.8) 10^3/uL 0.89 H Absolute Eosinophils (0.0-0.7) 10^3/uL 0.01 Absolute Basophils (0.0-0.2) 10^3/uL 0.02 Sodium (136-145) mmol/L 135 L Potassium (3.5-5.1) mmol/L 4.3 Chloride (98-107) mmol/L 98 Carbon Dioxide (21.0-32.0) mmol/L 28.3 Anion Gap (3-11) mmol/L 8.7 BUN (7-18) mg/dL 14 Creatinine (0.70-1.30) mg/dL 1.7 H Est GFR (CKD-EPI 2020) (mL/min/1.73m2) 39.75 Glucose (74-106) mg/dL 114 H Calcium (8.5-10.1) mg/dL 8.4 L Total Bilirubin (0.2-1.0) mg/dL 0.83 AST (15-37) U/L 62 H ALT (16-63) U/L 73 H Alkaline Phosphatase (46-116) U/L 95 Troponin I (<or=76) ng/L 16 Total Protein (6.4-8.2) g/dL 6.8 Albumin (3.4-5.0) g/dL 3.6 Quality:SDOH Health Related Social Needs: No Data to Display PFSH All Active Problems (Updated 04/10/24 @ 17:41 by LESLIE Leonardo) Fracture of multiple ribs of left side (Acute) Neuropathy of both feet (Acute) Congestive heart failure (Chronic) Iron deficiency anemia due to chronic blood loss (Acute) 06/21/20 [facility] Oncology- arranging for venofer qw x5 02/06/21 Venofer x3 Atrial fib/flutter, transient (Chronic) Anemia (Chronic) At risk for amiodarone toxicity with technician terminal and repeater use (Acute) Pre-op evaluation (Acute) Cataract (Chronic) First degree atrioventricular block (Acute) Dyspnea (Acute) Essential hypertension (Acute) Wheeze (Acute) Cough (Acute) Poor compliance with CPAP treatment (Acute) 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 Jama Abreu MD, no further colonoscopies needed Diverticulosis (Acute) 05/27/18 Found in the entire examined colon w.Colonoscopy at [facility] [place] Hiatal hernia (Chronic) 05/27/18 medium sized 35-40cm seen with Upper GI,[facility] [place] Obstructive sleep apnea (Acute 07/20/15) CPAP AHI 28.6 Trish Koshowski Nocturia more than twice per night (Acute 10/20/16) History of alcohol abuse (Acute 05/20/15) none since Feb 2015 12-pack daily and .5-1 gal Gin/wk Heme positive stool (Acute 05/19/15) [place] [facility] [place] w/u recommended Elevated serum creatinine (Acute 10/20/16) Chronic anticoagulation (Acute 05/19/15) Coumadin Switched to Eliquis 02/2016 Cardiomyopathy (Acute 05/19/15) LVEF 25-30% by ECHO 05/17/15; echo 08/2015 EF 50-55% Dr Soni follows Atrial fibrillation (Acute 05/17/15) Gastrointestinal hemorrhage (Acute) Medical History Noncompliance with medication regimen (05/19/15) Poor dentition (12/30/15) Personal history of tobacco use (05/20/15) none since Jan 2015 Daily cigars Helicobacter pylori gastritis (01/31/15) History of alcohol abuse Tobacco abuse Chronic anticoagulation eliquis Atrial fibrillation ALBERTO (obstructive sleep apnea) Poor dentition Helicobacter pylori gastritis Surgical History S/P cataract extraction and insertion of intraocular lens (10/08/19) right L done [place]03[place] [place]oscopy History of endoscopy (05/28/18) 05/27/18 Upper GI-medium sized hiatal hernia present at 35-40cm, normal esophagus, Irregular Z-line at 35 cm from incisors, normal stomach and duodenum 05/28/18-video capsule [id number] duodenum,jejunum,and ileum. small bowel enteroscopy (03/22/15) [facility] [place] Champagne rib fx (11/22/08) hx previous rib fxs Repair of inguinal hernia right; years ago EGD - MAC (09/12/17) 05/27/18 Colonoscopy- multiple diverticula, internal hemorrhoids, 2-sessile polyps in ascending colon3-5mm size, diverticulosis in the entire examined colon EGD - IV Sedation (01/31/15) Dr Lee Final Pathologic Diagnosis: Gastric Antrum stomach biopsy -Gastric antral mucosa with H. Pylori gastritis and focal intestianl metaplasia -H. Pylori seen on HE stain Gastric body stomach biopsy -Gastric body mucosa with H. Pylori gastritis -H. Pylori seen on HE stain Addendum to above path diagnosis: Biopsy Esophagus - Gastric fundic type mucosa with active erosive gastritis. Colonoscopy - MAC (09/12/17) Colonoscopy - IV Sedation (02/08/15) w/ BX Dr. Lee sigmoid diverticulosis, Final Path Diagnosis: Inflammatory polyp Family History Mother No problems noted. Father Personal history of malignant neoplasm Sister Parkinson disease Sister No problems noted. Sister No problems noted. Brother Personal history of malignant neoplasm Brother No problems noted. Social History Smoking/Tobacco Use Status: Former Tobacco Use Quit Date: 04/30/14 Tobacco: How many years used: 60 Smoking risk assessment performed?: Yes Alcohol Intake: current Alcohol Intake frequency: 0-2 drinks per day Alcohol type: beer Drug use: Never Substance use type: does not use Housing: house What type of physical activity do you participate in: none Do you feel safe at home: Yes Do you feel safe in your relationship?: Yes Additional Social history: unable to assess halie
[2024-04-10] MEDS: MORPHine 10 MG/ML VIAL 2 MG IVP (17:21)
[2024-04-10] MEDS: oxyCODONE 5 MG TAB 10 MG PO (18:01)
== END 2024-04-10 18:06 | disposition home or self-care (01) ==
PROVIDERS: Emergency Provider Physician Assistant; PCP Nurse Practitioner
DX: S22.42XA Multiple fractures of ribs, left side, initial encounter for closed fracture (principal); I45.19 Other right bundle-branch block; R00.1 Bradycardia, unspecified; I48.91 Unspecified atrial fibrillation; Z79.01 Long term (current) use of anticoagulants; W01.0XXA Fall on same level from slipping, tripping and stumbling without subsequent striking against object, initial encounter; Y93.89 Activity, other specified; Y92.015 Private garage of single-family (private) house as the place of occurrence of the external cause
CPT/HCPCS: 36415; 80053; 93005; 96374; 96376; 99285; 71260; 84484; 85025; 93010; J2270; J3490

== ENCOUNTER 2024-05-12 03:31 | Outpatient (CLI) | payer MEDICARE, MEDICAID, SELFPAY ==
[2024-05-12 09:24] LABS: Abs Immature Grans 0.02 10^3/uL (0.0-0.06); Absolute Basophil Count 0.05 10^3/uL (0.0-0.2); Absolute Eosinophil Count 0.14 10^3/uL (0.0-0.7); Absolute Lymphocyte Count 0.55 10^3/uL (1.2-3.4); Absolute Monocyte Count 0.66 10^3/uL (0.1-0.8); Absolute Neutrophil Count 2.83 10^3/uL (1.2-6.7); Basophils % 1.2 %; Eosinophils % 3.3 %; HGB 14.2 g/dL (13.5-17.5); Immature Grans % 0.5 %; Lymphocytes % 12.9 %; MCH 29.8 pg (27.0-33.0); MCHC 33.8 % (32.0-36.0); MCV 88 fL (80-95); MPV 9.1 fL (8.0-11.0); Monocytes % 15.5 %; Neutrophils % 66.6 %; Platelet Count 203 10^3/uL (130-400); RBC 4.77 10^6/uL (4.36-5.78); RDW 13.2 % (11.8-14.1); RDW-SD 42.7 fL; WBC 4.25 10^3/uL (4.4-10.8)
[2024-05-12 09:31] LABS: Iron 117 ug/dL (65-175); Total Iron Binding Capacity 298 ug/dL (250-450); Transferrin Sat 39 % (20-55)
[2024-05-12 09:44] LABS: ALT 57 U/L (16-63); AST 39 U/L (15-37); Albumin 3.7 g/dL (3.4-5.0); Alkaline Phosphatase 97 U/L (46-116); Anion Gap 10.5 mmol/L (3-11); BUN 9 mg/dL (7-18); Bilirubin, Total 0.86 mg/dL (0.2-1.0); CO2 27.5 mmol/L (21.0-32.0); CREATININE 1.3 mg/dL (0.70-1.30); Calcium 8.9 mg/dL (8.5-10.1); Chloride 100 mmol/L (98-107); Estimated GFR 54.85 (mL/min/1.73m2); Glucose 95 mg/dL (74-106); Potassium 3.7 mmol/L (3.5-5.1); Sodium 138 mmol/L (136-145)
[2024-05-12 09:54] LABS: Ferritin 160 ng/mL (26-388)
== END 2024-05-12 03:32 | disposition home or self-care (01) ==
LOC: LBO 03:32
PROVIDERS: Nurse Practitioner Family; Physician Assistant; PCP Nurse Practitioner; Visit Provider Internal Medicine Medical Oncology
DX: D50.0 Iron deficiency anemia secondary to blood loss (chronic) (principal); Z51.81 Encounter for therapeutic drug level monitoring; Z79.899 Other long term (current) drug therapy
CPT/HCPCS: 36415; 80053; 82728; 83540; 83550; 85025

== ENCOUNTER 2024-06-03 15:18 | Outpatient (CLI) | payer MEDICARE, MEDICAID, SELFPAY ==
--- NOTE | 2024-06-03 14:53 | DI.RAD_ITS ---
Exam(s) XR CHEST 2V PA LATERAL EXAM: XR CHEST 2V PA LATERAL CLINICAL HISTORY: rule out pneumonia, chf exac, cough, sob, R05, R06.02, dyspnea, R06.00 TECHNIQUE: 2D digital imaging was performed of the chest. Two images were obtained. PA and lateral views were obtained. COMPARISON: CR XR CHEST 2V PA LATERAL from 08/24/2021 FINDINGS: MEDIASTINUM: Normal. HEART: Normal. PULMONARY VASCULATURE: Normal. LUNGS: No focal consolidating infiltrates are present. PLEURAL SPACE: No pleural effusion or pneumothorax. BONE:Within normal limits for the patient's age. There are multiple old right rib fracture deformiti es. OTHER FINDINGS:Normal. IMPRESSION: No acute pulmonary findings. No findings to suggest congestive heart failure or pneumonia. DATA REPOSITORY: RADIATION DOSE DELIVERED:
== END 2024-06-03 15:38 ==
LOC: DI 15:21
PROVIDERS: PCP Nurse Practitioner; Visit Provider Nurse Practitioner Family
DX: R05.9 Cough, unspecified (principal); R06.02 Shortness of breath; R06.00 Dyspnea, unspecified
CPT/HCPCS: 71046

== ENCOUNTER 2024-06-03 15:34 | Outpatient (CLI) | payer MEDICARE, SELFPAY ==
[2024-06-03 15:33] LABS: Anion Gap 4.5 mmol/L (3-11); BUN 12 mg/dL (7-18); CO2 35.5 mmol/L (21.0-32.0); CREATININE 1.3 mg/dL (0.70-1.30); Calcium 9.3 mg/dL (8.5-10.1); Chloride 100 mmol/L (98-107); Estimated GFR 54.85 (mL/min/1.73m2); Glucose 107 mg/dL (74-106); Potassium 3.9 mmol/L (3.5-5.1); Sodium 140 mmol/L (136-145)
[2024-06-03 15:45] LABS: NT-proBNP 6563 pg/mL (<300)
== END 2024-06-03 15:35 | disposition home or self-care (01) ==
LOC: LBO 15:35
PROVIDERS: PCP Nurse Practitioner; Visit Provider Nurse Practitioner Family
DX: R60.0 Localized edema (principal); R06.02 Shortness of breath
CPT/HCPCS: 36415; 80048; 83880

== ENCOUNTER 2024-06-10 13:54 | Outpatient (CLI) | payer MEDICARE, MEDICAID, SELFPAY ==
--- NOTE | 2024-06-10 13:30 | DI.RAD_ITS ---
Exam(s) XR ANKLE LT COMPLETE EXAM: XR ANKLE LT COMPLETE CLINICAL HISTORY: left ankle pain/swelling rule out fx, M25.572. TECHNIQUE: 2D digital imaging was performed. COMPARISON: No exams were available for comparison FINDINGS: 3 views There is soft tissue swelling around the entire ankle but most prominent laterally. There is no evidence of acute fracture or widening the ankle mortise. Talar dome unremarkable. Acce ssory ossicle is noted subjacent to the medial malleolus. There are minimal if any significant degen erative changes. No osseous lesions. Vascular calcifications noted in the posterior tibial and ante rior tibial dorsalis pedis vessels. IMPRESSION: Soft tissue swelling but no acute osseous findings in the ankle.. DATA REPOSITORY: RADIATION DOSE DELIVERED:
--- NOTE | 2024-06-10 13:30 | DI.RAD_ITS ---
Exam(s) XR FOOT LT COMPLETE EXAM: XR FOOT LT COMPLETE CLINICAL HISTORY: fall, foot pain r/o fx, M79.672. TECHNIQUE: 2D digital imaging was performed. COMPARISON: No exams were available for comparison FINDINGS: 3 views No evidence of fracture or diastasis of the Lisfranc joint. Moderate degenerative changes are noted in the great toe metatarsophalangeal joint. There is dorsal soft tissue swelling over foot as well as around the ankle but there are no metatarsal nor other frac tures evident in the foot. There also minimal if any significant degenerative changes in the articul ations with the exception of moderate degenerative changes in the metatarsophalangeal joint of the gr eat toe. There is vascular calcification noted. No evidence of osteomyelitis. Small enthesophyte is noted on the posterior calcaneus. IMPRESSION: Soft tissue swelling. No acute osseous findings in the foot. Moderate degenerative changes are noted in the great toe metatarsophalangeal joint. DATA REPOSITORY: RADIATION DOSE DELIVERED:
== END 2024-06-10 14:14 ==
PROVIDERS: PCP Nurse Practitioner; Visit Provider Nurse Practitioner Family
DX: M25.572 Pain in left ankle and joints of left foot (principal)
CPT/HCPCS: 73610; 73630

== ENCOUNTER 2024-06-10 14:46 | Outpatient (CLI) | payer MEDICARE, MEDICAID, SELFPAY ==
[2024-06-10 15:05] LABS: Uric Acid 7.1 mg/dL (3.5-7.2)
[2024-06-10 15:14] LABS: NT-proBNP 3507 pg/mL (<300)
== END 2024-06-10 14:47 | disposition home or self-care (01) ==
LOC: LBO 14:47
PROVIDERS: PCP Nurse Practitioner; Visit Provider Nurse Practitioner Family
DX: I50.9 Heart failure, unspecified (principal); M25.572 Pain in left ankle and joints of left foot; M79.672 Pain in left foot
CPT/HCPCS: 36415; 83880; 84550

== ENCOUNTER 2024-06-13 15:52 | Outpatient (CLI) | payer MEDICARE, MEDICAID, SELFPAY ==
--- NOTE | 2024-06-13 14:45 | DI.US_ITS ---
Exam(s) US LOWER EXTREMITY VENOUS LT EXAM: US LOWER EXTREMITY VENOUS LT CLINICAL HISTORY: M79.662 Pain in left lower leg, rule out dvt TECHNIQUE: Grayscale, color, and doppler imaging of the deep venous system of the left lower extremi ty was performed. COMPARISON: No exams were available for comparison FINDINGS: There is no evidence of intraluminal thrombus and there is normal compression and augmentation demons trated within the common femoral vein, femoral vein, and popliteal vein. In the ipsilateral calf the interrogated veins also exhibit normal compression/ augmentation properti es. The ipsilateral saphenofemoral junction is patent. IMPRESSION: 1. No evidence of DVT in the left lower extremity. DATA REPOSITORY:
== END 2024-06-13 16:12 ==
PROVIDERS: PCP Nurse Practitioner; Visit Provider Nurse Practitioner Family
DX: M79.662 Pain in left lower leg (principal)
CPT/HCPCS: 93971

== ENCOUNTER → 2024-08-22 13:34 | Outpatient (BNVA) | payer MEDICARE, MEDICAID, SELFPAY | PROVIDERS: PCP Nurse Practitioner; Visit Provider Internal Medicine Cardiovascular Disease | DX: I48.0 Paroxysmal atrial fibrillation (principal); I42.9 Cardiomyopathy, unspecified; R60.0 Localized edema | CPT/HCPCS: 99214; 99213 ==

== ENCOUNTER 2024-08-25 11:10 | Outpatient (CLI) | payer MEDICARE, MEDICAID, SELFPAY ==
[2024-08-25 09:51] LABS: Abs Immature Grans 0.03 10^3/uL (0.0-0.06); Absolute Basophil Count 0.06 10^3/uL (0.0-0.2); Absolute Eosinophil Count 0.14 10^3/uL (0.0-0.7); Absolute Lymphocyte Count 0.66 10^3/uL (1.2-3.4); Absolute Monocyte Count 0.79 10^3/uL (0.1-0.8); Basophils % 1.1 %; Eosinophils % 2.6 %; HCT 41.8 % (40.0-50.0); HGB 14.2 g/dL (13.5-17.5); Immature Grans % 0.5 %; MCH 29.6 pg (27.0-33.0); MCV 87 fL (80-95); MPV 8.7 fL (8.0-11.0); Monocytes % 14.4 %; Neutrophils % 69.4 %; Platelet Count 196 10^3/uL (130-400); RBC 4.79 10^6/uL (4.36-5.78); RDW 12.6 % (11.8-14.1); RDW-SD 40.2 fL; WBC 5.48 10^3/uL (4.4-10.8)
[2024-08-25 10:40] LABS: Iron 62 ug/dL (65-175); Total Iron Binding Capacity 382 ug/dL (250-450); Transferrin Sat 16 % (20-55)
[2024-08-25 10:41] LABS: ALT 42 U/L (16-63); AST 31 U/L (15-37); Albumin 3.8 g/dL (3.4-5.0); Alkaline Phosphatase 80 U/L (46-116); Anion Gap 9.8 mmol/L (3-11); BUN 17 mg/dL (7-18); Bilirubin, Total 0.8 mg/dL (0.2-1.0); CO2 30.2 mmol/L (21.0-32.0); CREATININE 1.3 mg/dL (0.70-1.30); Calcium 8.8 mg/dL (8.5-10.1); Chloride 98 mmol/L (98-107); Estimated GFR 54.85 (mL/min/1.73m2); Glucose 94 mg/dL (74-106); Sodium 138 mmol/L (136-145)
[2024-08-28 15:18] LABS: Ferritin 43 ng/mL (26-388)
== END 2024-08-25 11:11 | disposition home or self-care (01) ==
LOC: LBO 11:13
PROVIDERS: PCP Nurse Practitioner; Visit Provider Nurse Practitioner Family
DX: D50.0 Iron deficiency anemia secondary to blood loss (chronic) (principal)
CPT/HCPCS: 36415; 80053; 82728; 83540; 83550; 85025

== ENCOUNTER → 2024-10-08 13:32 | Outpatient (BNVA) | payer MEDICARE, MEDICAID, SELFPAY | PROVIDERS: PCP Nurse Practitioner; Referring Provider Nurse Practitioner; Visit Provider Nurse Practitioner Gerontology | DX: N40.1 Benign prostatic hyperplasia with lower urinary tract symptoms (principal); R39.9 Unspecified symptoms and signs involving the genitourinary system | CPT/HCPCS: 99213; 51798 ==

== ENCOUNTER 2024-10-28 10:22 | Emergency (ER) | payer MEDICARE, MEDICAID, SELFPAY ==
[2024-10-28 10:22] VITALS: BP 182/102; PULSE 75; RESP 18; TEMP 36.8; O2SAT 94
--- NOTE | 2024-10-28 10:56 | DI.US_ITS ---
Exam(s) US RENAL EXAM: US RENAL CLINICAL HISTORY: left flank pain. TECHNIQUE: Lu scale imaging and color doppler were used. COMPARISON: CT ABD PELVIS WITH CONTRAST from 01/29/2015 US US ABDOMEN from 01/09/[address] CHEST W from 04/10/2024 FINDINGS: Exam is somewhat limited by patient body habitus. There is a large of mount of perirenal fat. Right kidney: 10.2cm Echogenicity: Normal Hydronephrosis: No Cyst or mass: No Nephrolithiasis: No Left kidney: 10.0cm Echogenicity: Normal Hydronephrosis: No Cyst or mass: No Nephrolithiasis: No Bladder:Normal. Both ureterovesical jets visualized Prevoid vol:177 cc Postvoid vol:0 cc Prostate volume 23 cc IMPRESSION: Suboptimal visualization of the kidneys. No gross evidence of hydronephrosis. DATA REPOSITORY:
--- NOTE | 2024-10-28 10:58 | W.ED.GENAD ---
Discharge Plan Disposition Patient Disposition: Home Condition: Good Discharge Details Clinical Impression: Acute flank pain Primary Care Provider: Stefanie Hoffman ED Provider: Antionette Hunter Home Meds and New Rx's Prescriptions: Continued furosemide 40 mg tablet 40 mg PO DAILY Xarelto 20 mg tablet 20 mg PO DAILY Qty: 90 4RF Patient Comments: no longer taking Rx Instructions: must administer with evening meal benzonatate 100 mg capsule 200 mg PO TID PRN (Reason: Cough) Qty: 21 0RF gabapentin 100 mg capsule See Rx Instructions .ROUTE .COMPLEX Qty: 90 3RF Dose Instruction: TAKE ONE CAPSULE BY MOUTH EVERY NIGHT AT BEDTIME Rx Instructions: TAKE ONE CAPSULE BY MOUTH EVERY NIGHT AT BEDTIME hydrocortisone [Anusol-HC] 2.5 % cream with perineal applicator 1 applic AL BID-QID PRN (Reason: hemorrhoids) Qty: 30 3RF fluticasone propionate 50 mcg/actuation spray,suspension 2 spray intranasal DAILY Qty: 16 5RF Rx Instructions: administer into each nostril valsartan 160 mg tablet See Rx Instructions .ROUTE .COMPLEX Qty: 90 3RF Dose Instruction: TAKE 1 TABLET BY MOUTH DAILY Rx Instructions: TAKE 1 TABLET BY MOUTH DAILY omeprazole 20 mg capsule,delayed release(DR/EC) See Rx Instructions .ROUTE .COMPLEX Qty: 180 3RF Dose Instruction: TAKE ONE CAPSULE BY MOUTH TWICE A DAY Rx Instructions: TAKE ONE CAPSULE BY MOUTH TWICE A DAY amiodarone 200 mg tablet See Rx Instructions .ROUTE .COMPLEX Qty: 90 3RF Dose Instruction: TAKE ONE TABLET BY MOUTH EVERY DAY Rx Instructions: TAKE ONE TABLET BY MOUTH EVERY DAY metoprolol succinate 50 mg tablet extended release 24 hr 50 mg PO DAILY Qty: 90 3RF Discharge Instructions Instructions: Flank Pain ED Additional Instructions: As we discussed, your labs and imaging are reassuring here today. No evidence to suggest urinary tract infection, stone, obstruction. I am concerned this may have been muscular pain, happy to see it is improving. Please continue with your medications as previously prescribed. Please follow-up with primary care in the next 1 to 2 weeks for reevaluation. If you develop any recurrent pain, difficulty urinating, fevers or chills or the new/worsening symptom please seek care urgently once again. Referrals: Stefanie Hoffman, ALYSE [Primary Care Provider, Medicine] Discharge Data Discharge Date/Time-TO BE ENTERED AT DEPARTURE: 10/28/24 14:03 HPI General Date/Time Provider Initiated Documentation: 10/28/24 10:30. Limitations to Documentation: no limitations. Information obtained by: patient, RN notes reviewed and old records reviewed. History of Present Illness 83 year old M presents to the emergency department with the chief complaint of left sided flank pain, described as moderate, Quality is described as aching, and is localized to the back (left flank). Patient reports no radiation. Patient started experiencing this hour(s) and it has been constant. No relieving factors improve symptom(s), No exacerbating factors reported . Patient notes denies chest pain, cough, fever/chills, loss of appetite, malaise, nausea/vomiting, rash and shortness of breath. Patient did receive the following treatments prior to arrival, none Related Data Home Medications ?Medication ?Instructions ?Recorded ?Confirmed rivaroxaban 20 mg tablet (Xarelto) 20 mg PO DAILY #90 tabs 10/16/23 10/28/24 furosemide 40 mg tablet 40 mg PO DAILY 02/14/24 10/28/24 valsartan 160 mg tablet See Rx Instructions .Route 04/28/24 10/28/24 .COMPLEX #90 tabs omeprazole 20 mg capsule,delayed See Rx Instructions .Route 05/12/24 10/28/24 release .COMPLEX #180 caps amiodarone 200 mg tablet See Rx Instructions .Route 08/21/24 10/28/24 .COMPLEX #90 tabs benzonatate 100 mg capsule 200 mg (2 x 100 mg) PO TID PRN 08/25/24 10/28/24 Cough #21 caps fluticasone propionate 50 2 spray intranasal DAILY #16 grams 08/25/24 10/28/24 mcg/actuation nasal spray,suspension gabapentin 100 mg capsule See Rx Instructions .Route 08/25/24 10/28/24 .COMPLEX #90 caps hydrocortisone 2.5 % topical cream 1 applic AL BID-QID PRN 08/25/24 10/28/24 with perineal applicator hemorrhoids #30 grams (Anusol-HC) metoprolol succinate 50 mg 50 mg PO DAILY #90 tabs 09/26/24 10/28/24 tablet,extended release 24 hr Previous Rx's ?Medication ?Instructions ?Recorded rivaroxaban 20 mg tablet (Xarelto) 20 mg PO DAILY #90 tabs 10/16/23 valsartan 160 mg tablet See Rx Instructions .Route 04/28/24 .COMPLEX #90 tabs omeprazole 20 mg capsule,delayed See Rx Instructions .Route 05/12/24 release .COMPLEX #180 caps amiodarone 200 mg tablet See Rx Instructions .Route 08/21/24 .COMPLEX #90 tabs benzonatate 100 mg capsule 200 mg (2 x 100 mg) PO TID PRN 08/25/24 Cough #21 caps fluticasone propionate 50 2 spray intranasal DAILY #16 grams 08/25/24 mcg/actuation nasal spray,suspension gabapentin 100 mg capsule See Rx Instructions .Route 08/25/24 .COMPLEX #90 caps hydrocortisone 2.5 % topical cream 1 applic AL BID-QID PRN 08/25/24 with perineal applicator hemorrhoids #30 grams (Anusol-HC) metoprolol succinate 50 mg 50 mg PO DAILY #90 tabs 09/26/24 tablet,extended release 24 hr Allergies Allergy/AdvReac Type Severity Reaction Status Date / Time No Known Drug Allergies Allergy Other (See Verified 10/28/24 10:27 Comment) General Stated Complaint: FlankPain RACHELLE: 3 Review of Systems Constitutional Constitutional: Reports as per HPI and Denies fever(s) Cardiovascular Cardiovascular: Reports as per HPI, Denies chest pain and Denies dyspnea Respiratory Respiratory: Reports as per HPI, Denies cough and Denies dyspnea Gastrointestinal Gastrointestinal: Reports as per HPI Genitourinary Genitourinary: Reports as per HPI Musculoskeletal Musculoskeletal: Reports as per HPI Exam Const General: cooperative, healthy appearing, comfortable, no acute distress and well developed Nutritional Appearance: average body habitus and well nourished Orientation: alert and awake Resp Effort & Inspection: normal respiratory effort and no respiratory distress Auscultation: clear to auscultation bilaterally, no rales, no rhonchi and no wheezes Cardio Rate: regular rate Rhythm: regular rhythm Heart Sounds: S1 normal and S2 normal GI Inspection: normal to inspection, no edema and non-distended Palpation: soft, no pulsatile masses and nontender Percussion: normal to percussion Skin General skin exam: no rashes or lesions noted Neuro General: patient alert and patient awake Cognition: normal cognition Speech: speech normal Gait: normal gait Course Vital Signs Vital signs: Vital Signs Temperature 36.8 C 10/28/24 10:22 Pulse 75 10/28/24 10:22 Respiratory Rate 18 10/28/24 10:22 Blood Pressure 182/102 H 10/28/24 10:22 Pulse Oximetry 94 10/28/24 10:22 Temperature 36.8 C 10/28/24 10:22 Temperature Source Oral 10/28/24 10:22 Pulse 75 10/28/24 10:22 Respiratory Rate 18 10/28/24 10:22 Blood Pressure 182/102 H 10/28/24 10:22 Pulse Oximetry 94 10/28/24 10:22 Oxygen Delivery Method Room Air 10/28/24 10:22 Oxygen Flow Rate 0 10/28/24 10:22 Pain Level 7 10/28/24 10:22 Medical Decision Making Patient is an 83 year old male with PMH signficant for BPH, a.fib, ALBERTO, presenting with c/c of left flank pain that began 3 days ago. Deneis any CP, abdominal pain. No change in urinary habits. HE shah have hx of urinary retention but states that this has not been an issue recently. No pain with urination, increased frequency. No fevers/chills. On exam, patient appears non-toxic. Normal respiraotyr and cardiac exam. Lungs clear. No abdominal pain. Pain is far left lateral onthe flank. More lateral than typical CVA tenderness, no radiation of pain. He does have some discomfort with palpation. No rash or erythema, no swelling or evidence of trauma. No hx of trauma. PVR was completed by myself with max 50cc. Initial concern was urinary retention, possible pyelo, with normal PVR, no indication of retention at this time. His prior retention had been at the prostate. Considered stone, will obtain US, labs. Contacted by the medication technician who advised that the left kidney is quite atrophied and difficult to visualize. Question of a possible small area of hydro nephrosis. Will move forward with a renal CT based on the limited study. CT scan reviewed by radiologist, no acute abnormalities. No hydronephrosis or evidence of stone. I discussed these with the patient. Despite not having received any type of analgesics, patient reports that his pain is largely improved and he feels ready for discharge. There is no evidence of diverticulitis, any infarcts or other emergent pathology at this point. As the symptoms seem to resolve on their own question, I am questioning if this could be associated with muscle strain. Patient agrees with this conclusion will continue to keep a close eye on it. Encouraged hydration supportive care. Strict return precautions were discussed. Encourage follow-up with primary care. Will apply a lidocaine patch to help with lingering discomfort. Return precautions discussed. Encouraged f/u with PCP. All of his questions and concerns were addressed, he is in agreement with this plan. PFSH All Active Problems (Updated 10/28/24 @ 13:46 by LESLIE Patrick) Acute flank pain (Acute) Localized swelling of left foot (Acute) Cellulitis (Acute) Foot pain, left (Acute) Ankle pain, left (Acute) Bronchitis (Acute) Peripheral edema (Acute) Rib fractures (Acute) Neuropathy of both feet (Acute) Congestive heart failure (Chronic) Iron deficiency anemia due to chronic blood loss (Acute) 06/21/20 [facility] Oncology- arranging for venofer qw x5 02/06/21 Venofer x3 Atrial fib/flutter, transient (Chronic) Anemia (Chronic) At risk for amiodarone toxicity with mcfp use (Acute) Pre-op evaluation (Acute) Cataract (Chronic) First degree atrioventricular block (Acute) Dyspnea (Acute) Essential hypertension (Acute) Wheeze (Acute) Cough (Acute) Poor compliance with CPAP treatment (Acute) 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 Jama Abreu MD, no further colonoscopies needed Diverticulosis (Acute) 05/27/18 Found in the entire examined colon w.[place] [facility] [place] Hiatal hernia (Chronic) 05/27/18 medium sized 35-40cm seen with Upper GI,[facility] [place] Obstructive sleep apnea (Acute 07/20/15) CPAP AHI 28.6 Trish Koshowski Nocturia more than twice per night (Acute 10/20/16) History of alcohol abuse (Acute 05/20/15) none since Feb 2015 12-pack daily and .5-1 gal Gin/wk Heme positive stool (Acute 05/19/15) negative GI w/u [facility] [place]; no further w/u recommended Elevated serum creatinine (Acute 10/20/16) Chronic anticoagulation (Acute 05/19/15) Coumadin Switched to Eliquis 02/2016 Cardiomyopathy (Acute 05/19/15) LVEF 25-30% by ECHO 05/17/15; echo 08/2015 EF 50-55% Dr Soni follows Atrial fibrillation (Acute 05/17/15) Gastrointestinal hemorrhage (Acute) Medical History Noncompliance with medication regimen (05/19/15) Poor dentition (12/30/15) Personal history of tobacco use (05/20/15) none since Jan 2015 Daily cigars Helicobacter pylori gastritis (01/31/15) History of alcohol abuse Tobacco abuse Chronic anticoagulation eliquis Atrial fibrillation ALBERTO (obstructive sleep apnea) Poor dentition Helicobacter pylori gastritis Surgical History S/P cataract extraction and insertion of intraocular lens (10/08/19) right L done 11/03/19-[facility] [place],Dr Monte H/O endoscopy History of endoscopy (05/28/18) 05/27/18 Upper GI-medium sized hiatal hernia present at 35-40cm, normal esophagus, Irregular Z-line at 35 cm from incisors, normal stomach and duodenum 05/28/18-video capsule [id number] duodenum,jejunum,and ileum. small bowel enteroscopy (03/22/15) [facility] [place] Dr. Champagne rib fx (11/22/08) hx previous rib fxs Repair of inguinal hernia right; years ago EGD - MAC (09/12/17) 05/27/18 Colonoscopy- multiple diverticula, internal hemorrhoids, 2-sessile polyps in ascending colon3-5mm size, diverticulosis in the entire examined colon EGD - IV Sedation (01/31/15) Dr Lee Final Pathologic Diagnosis: Gastric Antrum stomach biopsy -Gastric antral mucosa with H. Pylori gastritis and focal intestianl metaplasia -H. Pylori seen on HE stain Gastric body stomach biopsy -Gastric body mucosa with H. Pylori gastritis -H. Pylori seen on HE stain Addendum to above path diagnosis: Biopsy Esophagus - Gastric fundic type mucosa with active erosive gastritis. Colonoscopy - MAC (09/12/17) Colonoscopy - IV Sedation (02/08/15) w/ BX Dr. Lee sigmoid diverticulosis, Final Path Diagnosis: Inflammatory polyp Family History Mother No problems noted. Father Personal history of malignant neoplasm Sister Parkinson disease Sister No problems noted. Sister No problems noted. Brother Personal history of malignant neoplasm Brother No problems noted. Social History Smoking/Tobacco Use Status: Former Tobacco Use Quit Date: 04/30/14 Tobacco: How many years used: 60 Smoking risk assessment performed?: Yes Alcohol Intake: current Alcohol Intake frequency: 0-2 drinks per day Alcohol type: beer Drug use: Never Substance use type: does not use Housing: house What type of physical activity do you participate in: none Do you feel safe at home: Yes Do you feel safe in your relationship?: Yes Additional Social history: unable to assess [facility]
[2024-10-28 11:07] LABS: Abs Immature Grans 0.04 10^3/uL (0.0-0.06); HCT 36.7 % (40.0-50.0); HGB 12.8 g/dL (13.5-17.5); Immature Grans % 0.6 %; MCH 29.6 pg (27.0-33.0); MCHC 34.9 % (32.0-36.0); MCV 85 fL (80-95); MPV 9.4 fL (8.0-11.0); Platelet Count 217 10^3/uL (130-400); RBC 4.32 10^6/uL (4.36-5.78); RDW 12.9 % (11.8-14.1); RDW-SD 39.2 fL; WBC 6.20 10^3/uL (4.4-10.8)
[2024-10-28 11:33] LABS: ALT 46 U/L (16-63); AST 33 U/L (15-37); Albumin 3.6 g/dL (3.4-5.0); Alkaline Phosphatase 86 U/L (46-116); Anion Gap 8.7 mmol/L (3-11); BUN 16 mg/dL (7-18); Bilirubin, Total 0.4 mg/dL (0.2-1.0); CO2 30.3 mmol/L (21.0-32.0); Calcium 8.4 mg/dL (8.5-10.1); Chloride 94 mmol/L (98-107); Estimated GFR 75.14 (mL/min/1.73m2); Glucose 111 mg/dL (74-106); Potassium 3.8 mmol/L (3.5-5.1); Sodium 133 mmol/L (136-145); Total Protein 6.9 g/dL (6.4-8.2)
--- NOTE | 2024-10-28 11:45 | DI.CT_ITS ---
Exam(s) CT RENAL COLIC WO EXAM: CT RENAL COLIC WO CLINICAL HISTORY: left flank pain. TECHNIQUE: Imaging Protocol: Axial computed tomography images with coronal and sagittal reformatted images were created and reviewed. COMPARISON: CT ABD PELVIS WITH CONTRAST from 01/29/[address] CHEST W from 04/10/2024 FINDINGS: Lung Bases: No acute findings. Liver: Normal density. No suspicious mass. Cyst in the left lobe again noted. Gallbladder and biliary tract: No radiodense calculus. No biliary ductal dilation. Pancreas: No abnormal calcifications or inflammatory process. Spleen: Normal size. Kidneys: Normal size, contour and axis.No radiodense stones or obstructive uropathy. No suspicious masses seen. Adrenal glands: No mass is seen. Lymph nodes: Within normal limits. Vasculature: Abdominal aorta non-dilated. Atherosclerotic changes. Bladder:No stones. No gross wall thickening. No evidence of mass. Bowel: No obstruction. No bowel wall thickening. Extensive diverticulosis. No evidence of diverticulitis. Peritoneal cavity: No ascites.No free air. No focal collection. No mesenteric inflammatory response. Reproductive organs: Within normal limits. Bones: Bilateral L5 spondylolysis and mild L5-S1 spondylolisthesis, stable in appearance from 2014. Soft Tissues: Within fat containing left inguinal hernia. IMPRESSION: No evidence of hydronephrosis, urinary tract calculi or other acute abnormality in the abdomen and pelvis. Extensive diverticulosis without evidence of diverticulitis. RADIATION DOSE DELIVERED: 526.57mGy.cm Total DLP 526.57mGy.cm Total DLP DATA REPOSITORY: All CT scans at this facility are submitted to the National Radiology Data Registry (NRDR) Dose Index Registry (DIR) with the [employer] (A[employer]). RADIATION OPTIMIZATION: All CT scans at this facility use at least one of these dose optimization techniques: automated exposure control; mA and/or kV adjustment per patient size (includes targeted exams where dose is matched to clinical indication); or iterative reconstruction.
[2024-10-28 13:13] LABS: Glucose Negative (Negative)
[2024-10-28 13:53] VITALS: BP 176/90; PULSE 71; RESP 20; O2SAT 95
[2024-10-28] MEDS: Lidocaine 5% Patch 1 PATCH TP (13:53)
== END 2024-10-28 14:03 | disposition home or self-care (01) ==
PROVIDERS: Emergency Provider Physician Assistant; PCP Nurse Practitioner
DX: R10.9 Unspecified abdominal pain (principal); N26.1 Atrophy of kidney (terminal); I48.91 Unspecified atrial fibrillation; I10 Essential (primary) hypertension; Z79.01 Long term (current) use of anticoagulants; Z87.891 Personal history of nicotine dependence
CPT/HCPCS: 36415; 76770; 80053; 99284; 74176; 81003; 85025

== ENCOUNTER 2024-11-12 02:11 | Outpatient (CLI) | payer MEDICARE, MEDICAID, SELFPAY ==
--- NOTE | 2024-11-12 07:30 | DI.RAD_ITS ---
Exam(s) XR FOOT LT COMPLETE EXAM: XR FOOT LT COMPLETE CLINICAL HISTORY: Bilateral foot pain,pain lt foot, m79.672. TECHNIQUE: 2D digital imaging was performed of the left foot. Three images were obtained. AP, oblique and lateral views were obtained. COMPARISON: CR XR FOOT LT COMPLETE from 06/10/2024 FINDINGS: BONES: No acute fracture is present. No bony destructive lesion is seen. There is a enthesophyte at the posterior calcaneus. JOINTS: No dislocation present. There are moderate degenerative changes of the foot particularly at the 1st MTP joint. There is a small spur at the dorsal aspect of the head of the 1st metatarsal bone. SOFT TISSUE: Vascular calcifications are present. IMPRESSION: Moderate degenerative changes of the foot, most marked at the 1st MTP joint. DATA REPOSITORY: RADIATION DOSE DELIVERED:
--- NOTE | 2024-11-12 07:30 | DI.RAD_ITS ---
Exam(s) XR FOOT RT COMPLETE EXAM: XR FOOT RT COMPLETE CLINICAL HISTORY: Bilateral foot pain,pain rt foot,m79.671. TECHNIQUE: 2D digital imaging was performed of the right foot. Three images were obtained. AP, oblique and lateral views were obtained. COMPARISON: No exams were available for comparison FINDINGS: BONES: No acute fracture is present. No bony destructive lesion is seen. JOINTS: No dislocation present. There is a hallux valgus deformity. Mild degenerative changes are seen in the foot particularly the interphalangeal joints of the toes and the 1st MTP joint. There also appear to be hammertoes of the 2nd through 4th toes. SOFT TISSUE: Vascular calcifications are present. IMPRESSION: Mild degenerative changes of the foot and hallux valgus deformity. DATA REPOSITORY: RADIATION DOSE DELIVERED:
== END 2024-11-12 02:31 ==
PROVIDERS: PCP Nurse Practitioner Family; Visit Provider Podiatrist
DX: M79.671 Pain in right foot (principal); M79.672 Pain in left foot; R60.0 Localized edema; D50.0 Iron deficiency anemia secondary to blood loss (chronic); M20.22 Hallux rigidus, left foot; B35.1 Tinea unguium; I73.89 Other specified peripheral vascular diseases; L60.3 Nail dystrophy; B35.3 Tinea pedis; Z87.898 Personal history of other specified conditions; R09.89 Other specified symptoms and signs involving the circulatory and respiratory systems; I83.93 Asymptomatic varicose veins of bilateral lower extremities; R23.8 Other skin changes; L60.2 Onychogryphosis; L60.8 Other nail disorders
CPT/HCPCS: 11721; 20600; J0702; J1100; 73630

== ENCOUNTER 2024-11-24 12:18 | Outpatient (CLI) | payer MEDICARE, SELFPAY ==
[2024-11-24 11:25] LABS: Abs Immature Grans 0.02 10^3/uL (0.0-0.06); HCT 35.4 % (40.0-50.0); HGB 11.9 g/dL (13.5-17.5); Immature Grans % 0.3 %; MCH 28.2 pg (27.0-33.0); MCHC 33.6 % (32.0-36.0); MCV 84 fL (80-95); MPV 8.6 fL (8.0-11.0); Platelet Count 214 10^3/uL (130-400); RBC 4.22 10^6/uL (4.36-5.78); RDW 13.2 % (11.8-14.1); RDW-SD 40.6 fL; WBC 6.08 10^3/uL (4.4-10.8)
[2024-11-24 12:02] LABS: ALT 39 U/L (16-63); AST 25 U/L (15-37); Albumin 3.6 g/dL (3.4-5.0); Alkaline Phosphatase 85 U/L (46-116); Anion Gap 9.9 mmol/L (3-11); BUN 17 mg/dL (7-18); Bilirubin, Total 0.5 mg/dL (0.2-1.0); CO2 29.1 mmol/L (21.0-32.0); Calcium 8.7 mg/dL (8.5-10.1); Chloride 97 mmol/L (98-107); Estimated GFR 60.38 (mL/min/1.73m2); Glucose 106 mg/dL (74-106); Potassium 3.9 mmol/L (3.5-5.1); Sodium 136 mmol/L (136-145); Total Protein 6.9 g/dL (6.4-8.2)
[2024-11-24 12:13] LABS: Ferritin 14 ng/mL (26-388)
[2024-11-24 12:51] LABS: Iron 38 ug/dL (65-175); Total Iron Binding Capacity 403 ug/dL (250-450); Transferrin Sat 9 % (20-55)
[2024-11-26 14:13] LABS: NT-proBNP 2529 pg/mL (<300)
[2024-11-26 15:17] LABS: Lab Add On Test DONE
== END 2024-11-24 12:19 | disposition home or self-care (01) ==
LOC: LBO 12:19
PROVIDERS: Nurse Practitioner Family; PCP Nurse Practitioner Family; Visit Provider Physician Assistant
DX: D50.0 Iron deficiency anemia secondary to blood loss (chronic) (principal); I50.9 Heart failure, unspecified
CPT/HCPCS: 80053; 82728; 83540; 83550; 83880; 85025

== ENCOUNTER → 2024-11-27 12:59 | Outpatient (BNVA) | payer MEDICARE, SELFPAY | PROVIDERS: PCP Nurse Practitioner Family; Visit Provider Internal Medicine Cardiovascular Disease | DX: I48.20 Chronic atrial fibrillation, unspecified (principal); I42.9 Cardiomyopathy, unspecified; Z79.01 Long term (current) use of anticoagulants | CPT/HCPCS: 99213 ==

== ENCOUNTER → 2024-12-10 12:59 | Outpatient (BNVA) | payer MEDICARE, MEDICAID, SELFPAY | PROVIDERS: PCP Nurse Practitioner Family; Referring Provider Nurse Practitioner Family; Visit Provider Podiatrist | DX: M79.672 Pain in left foot (principal); M20.22 Hallux rigidus, left foot; R60.0 Localized edema; G57.93 Unspecified mononeuropathy of bilateral lower limbs; D50.0 Iron deficiency anemia secondary to blood loss (chronic); B35.1 Tinea unguium; I73.9 Peripheral vascular disease, unspecified; L60.3 Nail dystrophy; B35.3 Tinea pedis; Z87.898 Personal history of other specified conditions | CPT/HCPCS: 20600; J0702; J1100 ==

== ENCOUNTER 2025-01-02 09:59 | Outpatient (CLI) | payer MEDICARE, MEDICAID, SELFPAY ==
[2025-01-02 10:39] LABS: Anion Gap 9.0 mmol/L (3-11); BUN 24 mg/dL (7-18); CO2 29.0 mmol/L (21.0-32.0); Calcium 9.2 mg/dL (8.5-10.1); Chloride 97 mmol/L (98-107); Estimated GFR 54.51 (mL/min/1.73m2); Glucose 101 mg/dL (74-106); Potassium 4.4 mmol/L (3.5-5.1); Sodium 135 mmol/L (136-145)
== END 2025-01-02 10:00 | disposition home or self-care (01) ==
LOC: LBO 09:59
PROVIDERS: PCP Nurse Practitioner Family; Visit Provider Physician Assistant
DX: I50.20 Unspecified systolic (congestive) heart failure (principal)
CPT/HCPCS: 36415; 80048

== ENCOUNTER → 2025-01-14 13:03 | Outpatient (BNVA) | payer MEDICARE, MEDICAID, SELFPAY | PROVIDERS: PCP Nurse Practitioner Family; Referring Provider Nurse Practitioner Family; Visit Provider Podiatrist | DX: M79.672 Pain in left foot (principal); R60.0 Localized edema; G57.93 Unspecified mononeuropathy of bilateral lower limbs; D50.0 Iron deficiency anemia secondary to blood loss (chronic); Z87.898 Personal history of other specified conditions; M20.22 Hallux rigidus, left foot; B35.1 Tinea unguium; I73.89 Other specified peripheral vascular diseases; L60.3 Nail dystrophy; B35.3 Tinea pedis; M79.671 Pain in right foot; S91.201A Unspecified open wound of right great toe with damage to nail, initial encounter; X58.XXXA Exposure to other specified factors, initial encounter; R09.89 Other specified symptoms and signs involving the circulatory and respiratory systems; I83.93 Asymptomatic varicose veins of bilateral lower extremities; R23.8 Other skin changes; R23.4 Changes in skin texture; L60.2 Onychogryphosis; L60.8 Other nail disorders | CPT/HCPCS: 99213; 11719 ==

== ENCOUNTER 2025-02-23 11:29 | Outpatient (CLI) | payer MEDICARE, MEDICAID, SELFPAY ==
[2025-02-23 11:46] LABS: Abs Immature Grans 0.05 10^3/uL (0.0-0.06); HCT 35.7 % (40.0-50.0); HGB 12.0 g/dL (13.5-17.5); Immature Grans % 0.9 %; MCH 29.1 pg (27.0-33.0); MCHC 33.6 % (32.0-36.0); MCV 86 fL (80-95); MPV 8.6 fL (8.0-11.0); Platelet Count 209 10^3/uL (130-400); RBC 4.13 10^6/uL (4.36-5.78); RDW 14.5 % (11.8-14.1); RDW-SD 46.5 fL; WBC 5.45 10^3/uL (4.4-10.8)
[2025-02-23 12:23] LABS: Iron 78 ug/dL (65-175); Total Iron Binding Capacity 301 ug/dL (250-450); Transferrin Sat 26 % (20-55)
[2025-02-23 12:39] LABS: ALT 37 U/L (16-63); AST 28 U/L (15-37); Albumin 3.8 g/dL (3.4-5.0); Alkaline Phosphatase 81 U/L (46-116); Anion Gap 8.5 mmol/L (3-11); BUN 43 mg/dL (7-18); Bilirubin, Total 0.5 mg/dL (0.2-1.0); CO2 28.5 mmol/L (21.0-32.0); Calcium 8.7 mg/dL (8.5-10.1); Chloride 96 mmol/L (98-107); Estimated GFR 27.49 (mL/min/1.73m2); Ferritin 155 ng/mL (26-388); Glucose 109 mg/dL (74-106); Potassium 5.3 mmol/L (3.5-5.1); Sodium 133 mmol/L (136-145); Total Protein 6.8 g/dL (6.4-8.2)
== END 2025-02-23 11:30 | disposition home or self-care (01) ==
PROVIDERS: PCP Nurse Practitioner Family; Visit Provider Nurse Practitioner Adult Health
DX: D50.0 Iron deficiency anemia secondary to blood loss (chronic) (principal)
CPT/HCPCS: 36415; 80053; 82728; 83540; 83550; 85025

== ENCOUNTER → 2025-03-17 02:09 | Outpatient (CLI) | payer MEDICARE, MEDICAID, SELFPAY ==
--- NOTE | 2025-03-17 07:15 | DI.RAD_ITS ---
Exam(s) XR KNEE RT 3V AP,LAT,JERI EXAM: XR KNEE RT 3V AP,LAT,JERI CLINICAL HISTORY: rt knee pain,?oa,m25.561. TECHNIQUE: 2D digital imaging was performed. Three views. COMPARISON: No exams were available for comparison FINDINGS: BONES: No acute fracture is present. No bony destructive lesion is seen. JOINTS: The knee is normally aligned. The joint spaces are maintained. There is minimal periarticular spurring. No joint effusion is seen. SOFT TISSUE: Soft tissue swelling around the patella. Chronic appearing bony density seen superior and inferior to the patella. IMPRESSION: soft tissue swelling around the patella. Minimal degenerative changes. DATA REPOSITORY: RADIATION DOSE DELIVERED:
== END ==
LOC: DI 02:10
PROVIDERS: PCP Nurse Practitioner Family; Visit Provider Nurse Practitioner Family
DX: M25.561 Pain in right knee (principal); M17.11 Unilateral primary osteoarthritis, right knee
CPT/HCPCS: 73562; 93922

== ENCOUNTER 2025-04-13 13:35 | Outpatient (CLI) | payer MEDICARE, MEDICAID, SELFPAY ==
[2025-04-13 14:10] LABS: Anion Gap 8 mmol/L (3-11); BUN 21 mg/dL (9-23); CO2 29.0 mmol/L (20.0-31.0); Calcium 8.0 mg/dL (8.3-10.6); Chloride 104 mmol/L (98-107); Glucose 108 mg/dL (74-106); Potassium 3.9 mmol/L (3.5-5.1); Sodium 141 mmol/L (136-145)
== END 2025-04-13 13:36 | disposition home or self-care (01) ==
LOC: LBO 13:35
PROVIDERS: PCP Nurse Practitioner Family; Visit Provider Physician Assistant
DX: I50.20 Unspecified systolic (congestive) heart failure (principal)
CPT/HCPCS: 36415; 80048

== ENCOUNTER → 2025-04-15 12:31 | Outpatient (BNVA) | payer MEDICARE, MEDICAID, SELFPAY | PROVIDERS: PCP Nurse Practitioner Family; Visit Provider Nurse Practitioner Gerontology | DX: N40.1 Benign prostatic hyperplasia with lower urinary tract symptoms (principal); R35.0 Frequency of micturition; R39.15 Urgency of urination; R39.9 Unspecified symptoms and signs involving the genitourinary system | CPT/HCPCS: 99213; 51798 ==